=== PATIENT | male | born 1950 | race Hispanic/Latino ===

== ENCOUNTER 2017-04-10 12:37 | Outpatient (CLI) | payer MEDICARE ==
--- NOTE | 2017-04-10 14:48 | XRay Report ---
CHEST WITH BILATERAL RIB DETAIL FOUR VIEWS: 04/10/17 12:37:00 CLINICAL: Bilateral rib pain. FINDINGS: Several bilateral rib fractures are identified. A nondisplaced acute/subacute fracture deformity of the left sixth rib and a displaced acute/subacute fracture of the left posterior 10th rib. Healed fracture deformities of the left second and fifth anterior ribs. A nondisplaced acute/subacute fracture of the right lateral seventh rib and displaced acute/subacute fractures of right posterior 10th, 11th and 12th ribs.The lungs are normally expanded and clear. No pneumothorax. Normal heart and pulmonary vasculature. Degenerative changes in the spine. Normal soft tissues. IMPRESSION: Bilateral acute/subacute displaced and nondisplaced rib fractures and at least two healed chronic left rib fractures. No pneumothorax.
== END 2017-04-10 12:38 | disposition home or self-care (01) ==
LOC: SPVIMAG 12:37
DX: S22.43XD Multiple fractures of ribs, bilateral, subsequent encounter for fracture with routine healing (principal); M47.894 Other spondylosis, thoracic region; X58.XXXD Exposure to other specified factors, subsequent encounter
CPT/HCPCS: 71111

== ENCOUNTER 2018-02-01 03:53 | Inpatient (IN) | payer MEDICARE ==
[2018-02-01] MEDS ORDERED: LEVAQUIN PO ONE (04:11)
[2018-02-01] MEDS ORDERED: SOLU-Medrol IV ONE (04:11)
[2018-02-01] MEDS ORDERED: PROVENTIL IH ONE (04:11)
[2018-02-01] MEDS ORDERED: MAGNESIUM SULFATE 2GM/50ML 2 GM/50 ML BAG IV ONE (04:11)
[2018-02-01] MEDS ORDERED: ATROVENT IH ONE (04:11)
--- NOTE | 2018-02-01 04:11 | Emergency Department Report ---
ED Shortness of Breath HPI - General Chief Complaint: Dyspnea/Respdistress Stated Complaint: DIFFICULTY IN BREATHING Time Seen by Provider: 02/01/18 04:10 Source: patient, EMS Mode of arrival: Stretcher Limitations: No Limitations - History of Present Illness MD Complaint: shortness of breath -: Sudden Severity: severe Pain Scale: 8 Quality: dull Consistency: constant Improves With: oxygen Worsens With: nothing Known History Of: COPD Associated Symptoms: cough Treatments Prior to Arrival: none - Related Data Home Oxygen Therapy: No Home Medications Medication Instructions Recorded Confirmed Last Taken Aspirin [Aspirin BABY CHEW TAB] 81 mg PO QDAY 12/22/12 12/27/17 12/27/17 10:00 81 metFORMIN [Glucophage] 500 mg PO BID 12/25/16 12/27/17 12/26/17 08:00 Ca/D3/Mag/Zinc/Enmanuel/Vaibhav/Mgbor 1 each PO 12/26/17 12/26/17 08:00 [Caltrate 600-D3-Min Chew Tab] Carbidopa/Levodopa 25-100 [Sinemet 1 PO QID 12/26/17 12/26/17 08:00 25/100] Previous Rx's Medication Instructions Recorded Last Taken Type ALBUTEROL NEB's [Proventil 0.083% 2.5 mg IH TIDRT PRN #120 nebu 12/28/17 Unknown Rx NEBS] Fluticasone/Vilanterol [Breo 1 each IH BID #1 aer.pow.ba 12/28/17 Unknown Rx Ellipta 100-25 Mcg INH] Lisinopril [Zestril TAB] 20 mg PO QDAY #30 tablet 12/28/17 Unknown Rx Prednisone [predniSONE 10 mg 10 mg PO .TAPER #1 tab.ds.pk 12/28/17 Unknown Rx (6-Day Pack, 21 Tabs)] Allergies Allergy/AdvReac Type Severity Reaction Status Date / Time No Known Allergies Allergy Verified 09/11/13 07:53 ED Review of Systems ROS: Stated complaint: DIFFICULTY IN BREATHING Other details as noted in HPI Comment: All other systems reviewed and negative Constitutional: denies: chills, fever Eyes: denies: eye pain, eye discharge, vision change ENT: denies: ear pain, throat pain Respiratory: cough, orthopnea, shortness of breath. denies: wheezing Cardiovascular: denies: chest pain, palpitations Endocrine: no symptoms reported Gastrointestinal: denies: abdominal pain, nausea, diarrhea Genitourinary: denies: urgency, dysuria Musculoskeletal: denies: back pain, joint swelling, arthralgia Skin: denies: rash, lesions Neurological: denies: headache, weakness, paresthesias Psychiatric: denies: anxiety, depression Hematological/Lymphatic: denies: easy bleeding, easy bruising ED Past Medical Hx - Past Medical History Previous Medical History?: Yes Hx Hypertension: Yes Hx CVA: Yes (2016) Hx Congestive Heart Failure: No Hx Diabetes: Yes Hx Pulmonary Embolism: Yes (December 2012. On Coumadin) Hx Asthma: No Hx COPD: No Hx HIV: No Additional medical history: History of syncope, Parkinson's - Surgical History Past Surgical History?: No - Social History Smoking Status: Never Smoker Substance Use Type: None - Medications Home Medications: Home Medications Medication Instructions Recorded Confirmed Last Taken Type Aspirin [Aspirin BABY CHEW TAB] 81 mg PO QDAY 12/22/12 12/27/17 12/27/17 10:00 History 81 metFORMIN [Glucophage] 500 mg PO BID 12/25/16 12/27/17 12/26/17 08:00 History Ca/D3/Mag/Zinc/Enmanuel/Vaibhav/Mgbor 1 each PO 12/26/17 12/26/17 08:00 History [Caltrate 600-D3-Min Chew Tab] Carbidopa/Levodopa 25-100 [Sinemet 1 PO QID 12/26/17 12/26/17 08:00 History 25/100] ALBUTEROL NEB's [Proventil 0.083% 2.5 mg IH TIDRT PRN #120 nebu 12/28/17 Unknown Rx NEBS] Fluticasone/Vilanterol [Breo 1 each IH BID #1 aer.pow.ba 12/28/17 Unknown Rx Ellipta 100-25 Mcg INH] Lisinopril [Zestril TAB] 20 mg PO QDAY #30 tablet 12/28/17 Unknown Rx Prednisone [predniSONE 10 mg 10 mg PO .TAPER #1 tab.ds.pk 12/28/17 Unknown Rx (6-Day Pack, 21 Tabs)] ED Physical Exam - General Limitations: No Limitations General appearance: alert, in no apparent distress - Head Head exam: Present: atraumatic, normocephalic - Eye Eye exam: Present: normal appearance - ENT ENT exam: Present: mucous membranes moist - Neck Neck exam: Present: normal inspection - Respiratory Respiratory exam: Present: respiratory distress, wheezes, rhonchi - Cardiovascular Cardiovascular Exam: Present: regular rate, normal rhythm. Absent: systolic murmur, diastolic murmur, rubs, gallop - GI/Abdominal GI/Abdominal exam: Present: soft, normal bowel sounds. Absent: tenderness - Rectal Rectal exam: Present: deferred - Extremities Exam Extremities exam: Present: normal inspection - Back Exam Back exam: Present: normal inspection - Neurological Exam Neurological exam: Present: alert, oriented X3 - Psychiatric Psychiatric exam: Present: normal affect, normal mood - Skin Skin exam: Present: warm, dry, intact, normal color. Absent: rash ED Course Vital Signs 02/01/18 02/01/18 04:04 04:18 Temperature 98.0 F Pulse Rate 121 H 116 H Respiratory 19 24 Rate Blood Pressure 170/90 O2 Sat by Pulse 90 98 Oximetry - Consultations Consultation #1: 02/01/18 06:08 Dr Lawson to admit. ED Medical Decision Making - Lab Data Result diagrams: 02/01/18 04:33 02/01/18 04:33 Lab Results 02/01/18 02/01/18 02/01/18 Range/Units 04:20 04:33 04:33 WBC 9.8 (4.5-11.0) K/mm3 RBC 5.06 H (3.65-5.03) M/mm3 Hgb 14.9 (11.8-15.2) gm/dl Hct 44.4 (35.5-45.6) % MCV 88 (84-94) fl MCH 29 (28-32) pg MCHC 34 (32-34) % RDW 15.0 (13.2-15.2) % Plt Count 291 (140-440) K/mm3 Lymph % (Auto) 13.1 L (13.4-35.0) % Armstrong % (Auto) 5.1 (0.0-7.3) % Eos % (Auto) 3.3 (0.0-4.3) % Baso % (Auto) 0.8 (0.0-1.8) % Lymph # 1.3 (1.2-5.4) K/mm3 Armstrong # 0.5 (0.0-0.8) K/mm3 Eos # 0.3 (0.0-0.4) K/mm3 Baso # 0.1 (0.0-0.1) K/mm3 Seg Neutrophils % 77.7 H (40.0-70.0) % Seg Neutrophils # 7.6 (1.8-7.7) K/mm3 PT 12.6 (12.2-14.9) Sec. INR 0.90 (0.87-1.13) APTT 24.1 L (24.2-36.6) Sec. POC ABG pH 7.401 (7.35-7.45) POC ABG pCO2 37.1 (35-45) POC ABG pO2 175 H (80-105) POC ABG HCO3 23.1 POC ABG Total CO2 24 POC ABG O2 Sat 100 POC ABG Base Excess -2 FiO2 2 % Sodium (137-145) mmol/L Potassium (3.6-5.0) mmol/L Chloride (98-107) mmol/L Carbon Dioxide (22-30) mmol/L Anion Gap mmol/L BUN (9-20) mg/dL Creatinine (0.8-1.5) mg/dL Estimated GFR ml/min BUN/Creatinine Ratio % Glucose (75-100) mg/dL Calcium (8.4-10.2) mg/dL Magnesium (1.7-2.3) mg/dL Total Bilirubin (0.1-1.2) mg/dL AST (5-40) units/L ALT (7-56) units/L Alkaline Phosphatase (35-129) units/L Total Creatine Kinase (55-170) units/L CK-MB (CK-2) (0.0-4.0) ng/mL CK-MB (CK-2) Rel Index (0-4) Troponin T (0.00-0.029) ng/mL NT-Pro-B Natriuret Pep (0-900) pg/mL Total Protein (6.3-8.2) g/dL Albumin (3.9-5) g/dL Albumin/Globulin Ratio % Triglycerides (2-149) mg/dL Cholesterol (50-199) mg/dL LDL Cholesterol Direct (50-130) mg/dL HDL Cholesterol (40-59) mg/dL Cholesterol/HDL Ratio % 02/01/18 02/01/18 Range/Units 04:33 04:33 WBC (4.5-11.0) K/mm3 RBC (3.65-5.03) M/mm3 Hgb (11.8-15.2) gm/dl Hct (35.5-45.6) % MCV (84-94) fl MCH (28-32) pg MCHC (32-34) % RDW (13.2-15.2) % Plt Count (140-440) K/mm3 Lymph % (Auto) (13.4-35.0) % Armstrong % (Auto) (0.0-7.3) % Eos % (Auto) (0.0-4.3) % Baso % (Auto) (0.0-1.8) % Lymph # (1.2-5.4) K/mm3 Armstrong # (0.0-0.8) K/mm3 Eos # (0.0-0.4) K/mm3 Baso # (0.0-0.1) K/mm3 Seg Neutrophils % (40.0-70.0) % Seg Neutrophils # (1.8-7.7) K/mm3 PT (12.2-14.9) Sec. INR (0.87-1.13) APTT (24.2-36.6) Sec. POC ABG pH (7.35-7.45) POC ABG pCO2 (35-45) POC ABG pO2 (80-105) POC ABG HCO3 POC ABG Total CO2 POC ABG O2 Sat POC ABG Base Excess FiO2 % Sodium 140 (137-145) mmol/L Potassium 3.6 (3.6-5.0) mmol/L Chloride 101.2 (98-107) mmol/L Carbon Dioxide 23 (22-30) mmol/L Anion Gap 19 mmol/L BUN 9 (9-20) mg/dL Creatinine 0.7 L (0.8-1.5) mg/dL Estimated GFR > 60 ml/min BUN/Creatinine Ratio 13 % Glucose 235 H (75-100) mg/dL Calcium 9.0 (8.4-10.2) mg/dL Magnesium 1.50 L (1.7-2.3) mg/dL Total Bilirubin 0.30 (0.1-1.2) mg/dL AST 20 (5-40) units/L ALT 15 (7-56) units/L Alkaline Phosphatase 108 (35-129) units/L Total Creatine Kinase 142 (55-170) units/L CK-MB (CK-2) 5.0 H (0.0-4.0) ng/mL CK-MB (CK-2) Rel Index 3.5 (0-4) Troponin T 0.058 H (0.00-0.029) ng/mL NT-Pro-B Natriuret Pep 99.12 (0-900) pg/mL Total Protein 6.4 (6.3-8.2) g/dL Albumin 3.8 L (3.9-5) g/dL Albumin/Globulin Ratio 1.5 % Triglycerides 128 (2-149) mg/dL Cholesterol 215 H (50-199) mg/dL LDL Cholesterol Direct 153 H (50-130) mg/dL HDL Cholesterol 59 (40-59) mg/dL Cholesterol/HDL Ratio 3.64 % - EKG Data -: EKG Interpreted by Ca EKG shows normal: sinus rhythm Rate: tachycardia (121) - EKG Data When compared to previous EKG there are: previous EKG unavailable Interpretation: nonspecific ST-T wave lupe 02/01/18 04:19 No STEMI. - Radiology Data Radiology results: report reviewed, image reviewed - Medical Decision Making COPD Exacerbation. Critical Care Time: Yes Critical care time in (mins) excluding proc time.: 47 Critical care attestation.: If time is entered above; I have spent that time in minutes in the direct care of this critically ill patient, excluding procedure time. ED Disposition Clinical Impression: SOB (shortness of breath), COPD exacerbation, Elevated troponin I level Disposition: OP ADMIT IP TO THIS HOSP Is pt being admited?: Yes Does the pt Need Aspirin: Yes Condition: Stable Instructions: Chronic Obstructive Pulmonary Disease (ED) Time of Disposition: 06:11
[2018-02-01 04:58] LABS: Basophils # (Auto) 0.1 K/mm3 (0.0-0.1); Basophils % (Auto) 0.8 % (0.0-1.8); Eosinophils # (Auto) 0.3 K/mm3 (0.0-0.4); Eosinophils % (Auto) 3.3 % (0.0-4.3); Hematocrit 44.4 % (35.5-45.6); Hemoglobin 14.9 gm/dl (11.8-15.2); Lymphocytes # (Auto) 1.3 K/mm3 (1.2-5.4); Lymphocytes % (Auto) 13.1 % (13.4-35.0); Mean Corpuscular HGB Conc 34 % (32-34); Mean Corpuscular Hemoglobin 29 pg (28-32); Mean Corpuscular Volume 88 fl (84-94); Monocytes # (Auto) 0.5 K/mm3 (0.0-0.8); Monocytes % (Auto) 5.1 % (0.0-7.3); Platelet Count 291 K/mm3 (140-440); Red Blood Count 5.06 M/mm3 (3.65-5.03)
--- NOTE | 2018-02-01 05:28 | XRay Report ---
FINAL REPORT EXAM: XR CHEST 1V AP HISTORY: NOEMY difficulty breathing TECHNIQUE: AP portable view(s) of the chest obtained. PRIORS: 12/26/[address] FINDINGS: No mediastinal shift. Cardiac silhouette is not enlarged. No pneumothorax, effusion, or focal pulmona ry opacity identified. No acute skeletal findings. Multiple old right rib fracture deformities. IMPRESSION: No acute pulmonary finding identified.
[2018-02-01 05:29] LABS: Chol/HDL Ratio 3.64 %; INR 0.9 (0.87-1.13); Partial Thromboplastin Time 24.1 Sec. (24.2-36.6)
[2018-02-01 05:42] LABS: Alanine Aminotransferase 15 units/L (7-56); Albumin 3.8 g/dL (3.9-5); BUN/Creatinine Ratio 13; Blood Urea Nitrogen 9 mg/dL (9-20); Hemolysis Index 10
[2018-02-01] MEDS ORDERED: ASPIRIN PO ONE (06:11)
[2018-02-01] MEDS ORDERED: SODIUM CHLORIDE FLUSH SYRINGE 10 ML IV PRN (07:44)
[2018-02-01] MEDS ORDERED: ZOFRAN IV PRN (07:44)
[2018-02-01] MEDS ORDERED: DILAUDID IV PRN (07:44)
[2018-02-01] MEDS ORDERED: MOTRIN PO PRN (07:44)
[2018-02-01] MEDS ORDERED: TYLENOL PO PRN (07:44)
[2018-02-01] MEDS: DUONEB *Not for PRN Use IH SCH ×3 (08:04→20:48)
[2018-02-01] MEDS: SODIUM CHLORIDE FLUSH SYRINGE 10 ML IV SCH ×2 (09:40→22:24)
[2018-02-01] MEDS ORDERED: LEVAQUIN 750MG/150ML 750 MG/150 ML BAG IV ONE (09:46)
[2018-02-01] MEDS ORDERED: SOLU-Medrol ONE (09:47)
[2018-02-01] MEDS: LEVAQUIN 750MG/150ML 750 MG/150 ML BAG IV SCH (09:54)
[2018-02-01] MEDS: SOLU-Medrol IV SCH ×3 (09:54→22:23)
--- NOTE | 2018-02-01 12:43 | History and Physical Report ---
History of Present Illness Date of examination: 02/01/18 Date of admission: 02/01/18 07:44 Chief complaint: SOB History of present illness: Patient is 67 yo man with a history of type 2 DM, Parkinson's Disorder with recurrent falling, syncope, hypertension, CVA and prior PE who presents to [facility] ED with acute onset of . Patient went to use the restroom and fell without LOC or head trauma. Then, he developed sob without aggravating or relieving factors. Patient is a poor historian. On Venturi mask with labored breathing. Past Medical History: diabetes, hypertension, stroke Past Surgical History: No surgical history Social history: full code. denies: smoking, alcohol abuse, prescription drug abuse, IV drug use Family history: no significant family history ROS: Constitutional: denies: fever ENT: denies: throat or neck pain Respiratory: +: cough, shortness of breath Cardiovascular: denies: chest pain Endocrine: denies unexplained weight loss or gain Gastrointestinal: denies: abdominal pain, nausea Genitourinary: denies: dysuria Rectal: denies no incontinence, no bleeding, no itching, no discharge Musculoskeletal: denies swelling, myaglia, muscle weakness Skin: denies: rash Neurological: denies: headache Hematological/Lymphatic: denies: easy bleeding or easy bruising Allergic/Immunologic: no urticaria, no allergic rhinitis, no anaphylaxis Psych: denies sadness or hopelessness, SI/HI Medications and Allergies Allergies Allergy/AdvReac Type Severity Reaction Status Date / Time No Known Allergies Allergy Verified 09/11/13 07:53 Home Medications Medication Instructions Recorded Confirmed Last Taken Type Ca/D3/Mag Ox/Zinc/Outside Installation Machinist/Vaibhav/Bor 1 each PO QDAY 02/01/18 02/01/18 Unknown History [Calcium [id number] Chw Tb] Carbidopa/Levodopa 25-100 [Sinemet] 1 each PO TID 02/01/18 02/01/18 Unknown History Fluticasone/Vilanterol [Breo 1 each IH QDAY 02/01/18 02/01/18 Unknown History Ellipta 100-25 Mcg INH] Lisinopril [Zestril] 20 mg PO QDAY 02/01/18 02/01/18 Unknown History Olmesartan (Nf) [Benicar (Nf)] 20 mg PO QDAY 02/01/18 02/01/18 Unknown History Pantoprazole [Protonix] 40 mg PO QDAY 02/01/18 02/01/18 Unknown History Ropinirole HCl 0.5 mg PO TID 02/01/18 02/01/18 Unknown History metFORMIN [Glucophage] 500 mg PO BID 02/01/18 02/01/18 Unknown History Active Meds: Active Medications Acetaminophen (Tylenol) 650 mg PO Q4H PRN PRN Reason: Pain MILD(1-3)/Fever >100.5/SARMIENTO Albuterol/Ipratropium (Duoneb *Not For Prn Use*) 1 ampul IH QIDRT [facility] Last Admin: 02/01/18 12:06 Dose: 1 ampul Documented by: Hydromorphone HCl (Dilaudid) 0.5 mg IV Q3H PRN PRN Reason: Pain , Severe (7-10) Levofloxacin/Dextrose (Levaquin 750mg/150ml) 750 mg in 150 mls @ 100 mls/hr IV Q24HR [facility]; Protocol Last Admin: 02/01/18 09:54 Dose: 100 mls/hr Documented by: Ibuprofen (Motrin) 600 mg PO Q6H PRN PRN Reason: Pain, Mild (1-3) Methylprednisolone Sodium Succinate (Solu-Medrol) 80 mg IV Q8HR [facility] Last Admin: 02/01/18 09:54 Dose: 80 mg Documented by: Ondansetron HCl (Zofran) 4 mg IV Q8H PRN PRN Reason: Nausea And Vomiting Sodium Chloride (Sodium Chloride Flush Syringe 10 Ml) 10 ml IV BID [facility] Last Admin: 02/01/18 09:40 Dose: 10 ml Documented by: Sodium Chloride (Sodium Chloride Flush Syringe 10 Ml) 10 ml IV PRN PRN PRN Reason: LINE FLUSH Exam - Physical Exam Narrative exam: Gen: WDWN, NAD, Awake, Alert, Orientated x 3 HEENT: NCAT, EOMI, PERRL, OP Clear Neck: supple, no adenopathy, no thyromegaly, no JVD CVS/Heart: Regular tachycardia, normal S1S2, pulses present bilaterally Chest/Lungs: wheezing, Symmetrical chest expansion, good air entry bilaterally GI/Abdomen: soft, NTND, good bowel sounds, no guarding or rebound /Bladder: no suprapubic tenderness, no CVA or paraspinal tenderness Extermity/Skin: no c/c/e, no obvious rash MSK: FROM x 4 Neuro: CN 2-12 grossly intact, no new focal deficits, tremors and unsteady gait Psych: calm - Constitutional Vitals: Temp Pulse Resp BP Pulse Ox 98.0 F 106 H 26 H 156/84 98 02/01/18 04:04 02/01/18 12:08 02/01/18 12:08 02/01/18 08:53 02/01/18 08:53 Results - Labs CBC & Chem 7: 02/01/18 04:33 02/01/18 04:33 Labs: Abnormal lab results 02/01/18 02/01/18 02/01/18 Range/Units 04:20 04:33 04:33 RBC 5.06 H (3.65-5.03) M/mm3 Lymph % (Auto) 13.1 L (13.4-35.0) % Seg Neutrophils % 77.7 H (40.0-70.0) % APTT 24.1 L (24.2-36.6) Sec. POC ABG pO2 175 H (80-105) Creatinine (0.8-1.5) mg/dL Glucose (75-100) mg/dL Hemoglobin A1c (4-6) % Magnesium (1.7-2.3) mg/dL CK-MB (CK-2) (0.0-4.0) ng/mL Troponin T (0.00-0.029) ng/mL Albumin (3.9-5) g/dL Cholesterol (50-199) mg/dL LDL Cholesterol Direct (50-130) mg/dL 02/01/18 02/01/18 02/01/18 Range/Units 04:33 04:33 04:33 RBC (3.65-5.03) M/mm3 Lymph % (Auto) (13.4-35.0) % Seg Neutrophils % (40.0-70.0) % APTT (24.2-36.6) Sec. POC ABG pO2 (80-105) Creatinine 0.7 L (0.8-1.5) mg/dL Glucose 235 H (75-100) mg/dL Hemoglobin A1c 7.8 H (4-6) % Magnesium 1.50 L (1.7-2.3) mg/dL CK-MB (CK-2) 5.0 H (0.0-4.0) ng/mL Troponin T 0.058 H (0.00-0.029) ng/mL Albumin 3.8 L (3.9-5) g/dL Cholesterol 215 H (50-199) mg/dL LDL Cholesterol Direct 153 H (50-130) mg/dL Assessment and Plan Patient is 67 yo man with a history of type 2 DM, Parkinson's Disorder with recu rrent falling, syncope, hypertension, CVA and prior PE who presents to [facility] ED with acute onset of . Patient went to use the restroom and fell without LOC or head trauma. Then, he developed sob without aggravating or relieving factors. Patient is a poor historian. 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
[2018-02-01] MEDS ORDERED: LOVENOX SUB-Q SCH (22:00)
[2018-02-01 22:17] LABS: Bilirubin,Urine NEG (Negative); Blood,Urine NEG (Negative); Color,Urine Yellow (Yellow); Protein,Urine <15 mg/dL mg/dL (Negative); RBC,Urine < 1.0 /HPF (0.0-6.0); Urobilinogen,Urine < 2.0 mg/dL (<2.0)
[2018-02-02] MEDS: SOLU-Medrol IV SCH ×3 (06:15→21:38)
[2018-02-02 07:00] LABS: Hematocrit 45.3 % (35.5-45.6); Hemoglobin 14.9 gm/dl (11.8-15.2); Mean Corpuscular HGB Conc 33 % (32-34); Mean Corpuscular Hemoglobin 29 pg (28-32); Mean Corpuscular Volume 88 fl (84-94); Platelet Count 362 K/mm3 (140-440); Red Blood Count 5.15 M/mm3 (3.65-5.03); Red Cell Distribution Width 15.8 % (13.2-15.2)
[2018-02-02 07:25] LABS: BUN/Creatinine Ratio 18; Blood Urea Nitrogen 14 mg/dL (9-20); Calcium 9.3 mg/dL (8.4-10.2); Hemolysis Index 9
[2018-02-02] MEDS: DUONEB *Not for PRN Use IH SCH ×2 (08:47→21:08)
[2018-02-02] MEDS: LEVAQUIN 750MG/150ML 750 MG/150 ML BAG IV SCH (11:31)
[2018-02-02] MEDS: PROTONIX PO SCH (11:31)
[2018-02-02] MEDS: SODIUM CHLORIDE FLUSH SYRINGE 10 ML IV SCH ×2 (14:31→21:39)
--- NOTE | 2018-02-02 15:17 | Progress Note ---
Assessment and Plan Assessment and plan: Patient is 67 yo man with a history of type 2 DM, Parkinson's Disorder with recurrent falling, syncope, hypertension, CVA and prior PE who presents to [facility] ED with acute onset of . Patient went to use the restroom and fell without LOC or head trauma. Then, he developed sob without aggravating or relieving factors. Patient is a poor historian. * pCXR reported no acute pulmonary findings elevated troponin, denies CP; repeat trop, ekg, cardiology consult, start full dose lovenox, echo, -We'll obtain CT angiogram of his chest given history of PE in the past -Recurrent falls due to PD: consult PT, fall precaution, CT head official report still pending -Acute hypoxic respiratory failure suspected due to copd exacerbation: treat with O2, steroids and nebulizers -SIRS with organ dysfunction: No evidence of infection, chest x-ray and UA are negative Hypertensive urgency; optimize meds -DM type 2: a1c 7.8, cont ssi -H/o PE, not on Coumadin: 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 -H/o Parkinson: Continue his home meds -DVT prophylaxis: Chemical History Interval history: Review of systems Constitutional: No fevers, no malaise, no joint pains CVS: No chest pain, no orthopnea, no dyspnea on exertion, no pedal edema GI: No abdominal pain, no diarrhea, no vomiting, no constipation Respiratory: Complaining of shortness of breath and coughing Hospitalist Physical - Physical exam Narrative exam: General.: Appears well, no distress, nontoxic HEENT: Moist mucous membranes, extraocular muscles intact, no lymphadenopathy Neck: supple Cardiac: S1-S2 heard Lungs: clear to auscultation bilaterally Abdomen: soft , nontender, nondistended, bowel sounds positive Extremities: no edema clubbing or cyanosis Skin: no rash or lesions Neurologic: no gross focal deficits Psych: Calm and cooperative, cognitive deficits consistent with dementia - Constitutional Vitals: Temp Pulse Resp BP Pulse Ox 98.2 F 103 H 18 137/77 92 02/02/18 12:31 02/02/18 12:31 02/02/18 12:31 02/02/18 12:31 02/02/18 12:31 Results - Labs CBC & Chem 7: 02/02/18 05:16 02/02/18 05:16 Labs: Laboratory Last Values WBC 9.9 K/mm3 (4.5-11.0) 02/02/18 05:16 RBC 5.15 M/mm3 (3.65-5.03) H 02/02/18 05:16 Hgb 14.9 gm/dl (11.8-15.2) 02/02/18 05:16 Hct 45.3 % (35.5-45.6) 02/02/18 05:16 MCV 88 fl (84-94) 02/02/18 05:16 MCH 29 pg (28-32) 02/02/18 05:16 MCHC 33 % (32-34) 02/02/18 05:16 RDW 15.8 % (13.2-15.2) H 02/02/18 05:16 Plt Count 362 K/mm3 (140-440) 02/02/18 05:16 Lymph % (Auto) 13.1 % (13.4-35.0) L 02/01/18 04:33 Early % (Auto) 5.1 % (0.0-7.3) 02/01/18 04:33 Eos % (Auto) 3.3 % (0.0-4.3) 02/01/18 04:33 Baso % (Auto) 0.8 % (0.0-1.8) 02/01/18 04:33 Lymph # 1.3 K/mm3 (1.2-5.4) 02/01/18 04:33 Early # 0.5 K/mm3 (0.0-0.8) 02/01/18 04:33 Eos # 0.3 K/mm3 (0.0-0.4) 02/01/18 04:33 Baso # 0.1 K/mm3 (0.0-0.1) 02/01/18 04:33 Seg Neutrophils % 77.7 % (40.0-70.0) H 02/01/18 04:33 Seg Neutrophils # 7.6 K/mm3 (1.8-7.7) 02/01/18 04:33 PT 12.6 Sec. (12.2-14.9) 02/01/18 04:33 INR 0.90 (0.87-1.13) 02/01/18 04:33 APTT 24.1 Sec. (24.2-36.6) L 02/01/18 04:33 POC ABG pH 7.401 (7.35-7.45) 02/01/18 04:20 POC ABG pCO2 37.1 (35-45) 02/01/18 04:20 POC ABG pO2 175 (80-105) H 02/01/18 04:20 POC ABG HCO3 23.1 02/01/18 04:20 POC ABG Total CO2 24 02/01/18 04:20 POC ABG O2 Sat 100 02/01/18 04:20 POC ABG Base Excess -2 02/01/18 04:20 FiO2 2 % 02/01/18 04:20 Sodium 141 mmol/L (137-145) 02/02/18 05:16 Potassium 3.9 mmol/L (3.6-5.0) 02/02/18 05:16 Chloride 102.8 mmol/L (98-107) 02/02/18 05:16 Carbon Dioxide 21 mmol/L (22-30) L 02/02/18 05:16 Anion Gap 21 mmol/L 02/02/18 05:16 BUN 14 mg/dL (9-20) 02/02/18 05:16 Creatinine 0.8 mg/dL (0.8-1.5) 02/02/18 05:16 Estimated GFR > 60 ml/min 02/02/18 05:16 BUN/Creatinine Ratio 18 % 02/02/18 05:16 Glucose 213 mg/dL (75-100) H 02/02/18 05:16 Hemoglobin A1c 7.8 % (4-6) H 02/01/18 04:33 Calcium 9.3 mg/dL (8.4-10.2) 02/02/18 05:16 Magnesium 1.50 mg/dL (1.7-2.3) L 02/01/18 04:33 Total Bilirubin 0.30 mg/dL (0.1-1.2) 02/01/18 04:33 AST 20 units/L (5-40) 02/01/18 04:33 ALT 15 units/L (7-56) 02/01/18 04:33 Alkaline Phosphatase 108 units/L (35-129) 02/01/18 04:33 Total Creatine Kinase 142 units/L (55-170) 02/01/18 04:33 CK-MB (CK-2) 5.0 ng/mL (0.0-4.0) H 02/01/18 04:33 CK-MB (CK-2) Rel Index 3.5 (0-4) 02/01/18 04:33 Troponin T 0.105 ng/mL (0.00-0.029) H* D 02/02/18 00:32 NT-Pro-B Natriuret Pep 99.12 pg/mL (0-900) 02/01/18 04:33 Total Protein 6.4 g/dL (6.3-8.2) 02/01/18 04:33 Albumin 3.8 g/dL (3.9-5) L 02/01/18 04:33 Albumin/Globulin Ratio 1.5 % 02/01/18 04:33 Triglycerides 128 mg/dL (2-149) 02/01/18 04:33 Cholesterol 215 mg/dL (50-199) H 02/01/18 04:33 LDL Cholesterol Direct 153 mg/dL (50-130) H 02/01/18 04:33 HDL Cholesterol 59 mg/dL (40-59) 02/01/18 04:33 Cholesterol/HDL Ratio 3.64 % 02/01/18 04:33 Urine Color Yellow (Yellow) 02/01/18 21:55 Urine Turbidity Clear (Clear) 02/01/18 21:55 Urine pH 5.0 (5.0-7.0) 02/01/18 21:55 Ur Specific [place] 1.022 (1.003-1.030) 02/01/18 21:55 Urine Protein <15 mg/dl mg/dL (Negative) 02/01/18 21:55 Urine Glucose (UA) >=500 mg/dL (Negative) 02/01/18 21:55 Urine Ketones Tr mg/dL (Negative) 02/01/18 21:55 Urine Blood Neg (Negative) 02/01/18 21:55 Urine Nitrite Neg (Negative) 02/01/18 21:55 Urine Bilirubin Neg (Negative) 02/01/18 21:55 Urine Urobilinogen < 2.0 mg/dL (<2.0) 02/01/18 21:55 Ur Leukocyte Esterase Neg (Negative) 12/28/18 21:55 Urine WBC (Auto) 1.0 /HPF (0.0-6.0) 02/01/18 21:55 Urine RBC (Auto) < 1.0 /HPF (0.0-6.0) 02/01/18 21:55 U Epithel Cells (Auto) < 1.0 /HPF (0-13.0) 02/01/18 21:55
[2018-02-02] MEDS: LOVENOX SUB-Q SCH ×2 (17:39→21:39)
[2018-02-02] MEDS ORDERED: LOVENOX SUB-Q SCH (22:00)
[2018-02-02] MEDS: GLUCOPHAGE PO SCH (23:53)
[2018-02-03] MEDS: SOLU-Medrol IV SCH ×3 (06:14→22:08)
[2018-02-03] MEDS: DUONEB *Not for PRN Use IH SCH ×2 (07:09→21:06)
[2018-02-03] MEDS: BROVANA NEBU IH SCH ×2 (07:09→21:06)
[2018-02-03] MEDS: PULMICORT IH SCH ×2 (07:09→21:06)
[2018-02-03] MEDS: NORCO 5/325 PO PRN ×2 (08:30→15:05)
[2018-02-03] MEDS: CALTRATE PLUS PO SCH (09:29)
[2018-02-03] MEDS: GLUCOPHAGE PO SCH ×2 (09:29→17:50)
[2018-02-03] MEDS: ZESTRIL PO SCH (09:34)
[2018-02-03] MEDS: LOVENOX SUB-Q SCH ×2 (09:35→22:08)
[2018-02-03] MEDS: HALFPRIN EC PO SCH (09:35)
[2018-02-03] MEDS: COZAAR PO SCH (09:35)
[2018-02-03] MEDS: SINEMET PO SCH ×3 (09:35→20:31)
[2018-02-03] MEDS: REQUIP PO SCH ×3 (09:36→20:31)
[2018-02-03] MEDS: LEVAQUIN 750MG/150ML 750 MG/150 ML BAG IV SCH (09:36)
[2018-02-03] MEDS: PROTONIX PO SCH ×2 (09:36→09:37)
[2018-02-03] MEDS: SODIUM CHLORIDE FLUSH SYRINGE 10 ML IV SCH ×2 (09:38→22:09)
[2018-02-03] MEDS ORDERED: NON-FORMULARY (Fluticasone/Vilanterol [Breo Ellipta 100-25 Mcg Inh] 1 EACH) IH SCH (10:00)
--- NOTE | 2018-02-03 12:48 | Progress Note ---
Assessment and Plan Assessment and plan: Patient is 67 yo man with a history of type 2 DM, Parkinson's Disorder with recurrent falling, syncope, hypertension, CVA and prior PE who [facility] with acute onset of . Patient went to use the restroom and fell without LOC or head trauma. Then, he developed sob without aggravating or relieving factors. Patient is a poor historian. * pCXR reported no acute pulmonary findings elevated troponin, denies CP; repeat trop, ekg, cardiology consult, start full dose lovenox, echo, -We'll obtain CT angiogram of his chest given history of PE in the past -Recurrent falls due to PD: consult PT, fall precaution, CT head official report still pending -Acute hypoxic respiratory failure suspected due to copd exacerbation: treat with O2, steroids and nebulizers, obtain PFT, pulm consult -SIRS with organ dysfunction: No evidence of infection, chest x-ray and UA are negative Hypertensive urgency; optimize meds -DM type 2: a1c 7.8, cont ssi -H/o PE, not on Coumadin: he was not a candidate for retirement anticoagulation/coumadin due to falling -H/o Parkinson: Continue his home meds -DVT prophylaxis: Chemical History Interval history: Review of systems Constitutional: No fevers, no malaise, no joint pains CVS: No chest pain, no orthopnea, no dyspnea on exertion, no pedal edema GI: No abdominal pain, no diarrhea, no vomiting, no constipation Respiratory: Complaining of shortness of breath and coughing Hospitalist Physical - Physical exam Narrative exam: General.: Appears well, no distress, nontoxic HEENT: Moist mucous membranes, extraocular muscles intact, no lymphadenopathy Neck: supple Cardiac: S1-S2 heard Lungs: clear to auscultation bilaterally Abdomen: soft , nontender, nondistended, bowel sounds positive Extremities: no edema clubbing or cyanosis Skin: no rash or lesions Neurologic: no gross focal deficits Psych: Calm and cooperative, cognitive deficits consistent with dementia - Constitutional Vitals: Temp Pulse Resp BP Pulse Ox 97.6 F 97 H 20 124/70 93 02/03/18 11:41 02/03/18 11:42 02/03/18 11:42 02/03/18 11:42 02/03/18 11:42 Results - Labs CBC & Chem 7: 02/02/18 05:16 12/29/18 05:16 Labs: Laboratory Last Values WBC 9.9 K/mm3 (4.5-11.0) 02/02/18 05:16 RBC 5.15 M/mm3 (3.65-5.03) H 02/02/18 05:16 Hgb 14.9 gm/dl (11.8-15.2) 02/02/18 05:16 Hct 45.3 % (35.5-45.6) 02/02/18 05:16 MCV 88 fl (84-94) 02/02/18 05:16 MCH 29 pg (28-32) 02/02/18 05:16 MCHC 33 % (32-34) 02/02/18 05:16 RDW 15.8 % (13.2-15.2) H 02/02/18 05:16 Plt Count 362 K/mm3 (140-440) 02/02/18 05:16 Lymph % (Auto) 13.1 % (13.4-35.0) L 02/01/18 04:33 [place] % (Auto) 5.1 % (0.0-7.3) 02/01/18 04:33 Eos % (Auto) 3.3 % (0.0-4.3) 02/01/18 04:33 Baso % (Auto) 0.8 % (0.0-1.8) 02/01/18 04:33 Lymph # 1.3 K/mm3 (1.2-5.4) 02/01/18 04:33 [place] # 0.5 K/mm3 (0.0-0.8) 02/01/18 04:33 Eos # 0.3 K/mm3 (0.0-0.4) 02/01/18 04:33 Baso # 0.1 K/mm3 (0.0-0.1) 02/01/18 04:33 Seg Neutrophils % 77.7 % (40.0-70.0) H 02/01/18 04:33 Seg Neutrophils # 7.6 K/mm3 (1.8-7.7) 02/01/18 04:33 PT 12.6 Sec. (12.2-14.9) 02/01/18 04:33 INR 0.90 (0.87-1.13) 02/01/18 04:33 APTT 24.1 Sec. (24.2-36.6) L 02/01/18 04:33 POC ABG pH 7.401 (7.35-7.45) 02/01/18 04:20 POC ABG pCO2 37.1 (35-45) 02/01/18 04:20 POC ABG pO2 175 (80-105) H 02/01/18 04:20 POC ABG HCO3 23.1 02/01/18 04:20 POC ABG Total CO2 24 02/01/18 04:20 POC ABG O2 Sat 100 02/01/18 04:20 POC ABG Base Excess -2 02/01/18 04:20 FiO2 2 % 02/01/18 04:20 Sodium 141 mmol/L (137-145) 02/02/18 05:16 Potassium 3.9 mmol/L (3.6-5.0) 02/02/18 05:16 Chloride 102.8 mmol/L (98-107) 02/02/18 05:16 Carbon Dioxide 21 mmol/L (22-30) L 02/02/18 05:16 Anion Gap 21 mmol/L 02/02/18 05:16 BUN 14 mg/dL (9-20) 02/02/18 05:16 Creatinine 0.8 mg/dL (0.8-1.5) 02/02/18 05:16 Estimated GFR > 60 ml/min 02/02/18 05:16 BUN/Creatinine Ratio 18 % 02/02/18 05:16 Glucose 213 mg/dL (75-100) H 02/02/18 05:16 POC Glucose 260 (70-105) H 02/03/18 11:42 Hemoglobin A1c 7.8 % (4-6) H 02/01/18 04:33 Calcium 9.3 mg/dL (8.4-10.2) 02/02/18 05:16 Magnesium 1.50 mg/dL (1.7-2.3) L 02/01/18 04:33 Total Bilirubin 0.30 mg/dL (0.1-1.2) 02/01/18 04:33 AST 20 units/L (5-40) 02/01/18 04:33 ALT 15 units/L (7-56) 02/01/18 04:33 Alkaline Phosphatase 108 units/L (35-129) 02/01/18 04:33 Total Creatine Kinase 142 units/L (55-170) 02/01/18 04:33 CK-MB (CK-2) 5.0 ng/mL (0.0-4.0) H 02/01/18 04:33 CK-MB (CK-2) Rel Index 3.5 (0-4) 02/01/18 04:33 Troponin T 0.085 ng/mL (0.00-0.029) H 02/02/18 16:11 NT-Pro-B Natriuret Pep 99.12 pg/mL (0-900) 02/01/18 04:33 Total Protein 6.4 g/dL (6.3-8.2) 02/01/18 04:33 Albumin 3.8 g/dL (3.9-5) L 02/01/18 04:33 Albumin/Globulin Ratio 1.5 % 02/01/18 04:33 Triglycerides 128 mg/dL (2-149) 02/01/18 04:33 Cholesterol 215 mg/dL (50-199) H 02/01/18 04:33 LDL Cholesterol Direct 153 mg/dL (50-130) H 02/01/18 04:33 HDL Cholesterol 59 mg/dL (40-59) 02/01/18 04:33 Cholesterol/HDL Ratio 3.64 % 02/01/18 04:33 Urine Color Yellow (Yellow) 02/01/18 21:55 Urine Turbidity Clear (Clear) 02/01/18 21:55 Urine pH 5.0 (5.0-7.0) 02/01/18 21:55 Ur Specific [place] 1.022 (1.003-1.030) 02/01/18 21:55 Urine Protein <15 mg/dl mg/dL (Negative) 02/01/18 21:55 Urine Glucose (UA) >=500 mg/dL (Negative) 02/01/18 21:55 Urine Ketones Tr mg/dL (Negative) 02/01/18 21:55 Urine Blood Neg (Negative) 02/01/18 21:55 Urine Nitrite Neg (Negative) 02/01/18 21:55 Urine Bilirubin Neg (Negative) 02/01/18 21:55 Urine Urobilinogen < 2.0 mg/dL (<2.0) 02/01/18 21:55 Ur Leukocyte Esterase Neg (Negative) 02/01/18 21:55 Urine WBC (Auto) 1.0 /HPF (0.0-6.0) 02/01/18 21:55 Urine RBC (Auto) < 1.0 /HPF (0.0-6.0) 02/01/18 21:55 U Epithel Cells (Auto) < 1.0 /HPF (0-13.0) 02/01/18 21:55
--- NOTE | 2018-02-03 12:51 | Consultation ---
History of Present Illness Consult date: 02/03/18 Consult reason: shortness of breath History of present illness: The patient's this 67-year-old man with Parkinson's disease. He was brought to the emergency room today, with complaints of transient shortness of breath, and following that he went into his bathroom where he was said to have sustained a fall. He is somewhat of a prior historian, it appears that there was no report of loss of consciousness or syncope, is that he may have lost his balance due to ambulation difficulty associated with his Parkinson's. There was no chest pain, no palpitations and no lower extremity edema. Patient denies any significant prior cardiac history. Four years ago, an echocardiogram at this hospital reported left ventricular ejection fraction 45-50%. ECG is normal sinus rhythm, normal ECG. Chest x-ray reveals no infiltrates, no edema and no evidence of heart failure. The troponin levels were somewhat nonspecific, with serial levels unchanged at 0.08 to 0.1. Past History Past Medical History: diabetes, hypertension (Parkinson's), other (Parkinson's) Medications and Allergies Allergies Allergy/AdvReac Type Severity Reaction Status Date / Time No Known Allergies Allergy Verified 09/11/13 07:53 Home Medications Medication Instructions Recorded Confirmed Last Taken Type Ca/D3/Mag Ox/Zinc/Forging Press Setter Up/Vaibhav/Bor 1 each PO QDAY 02/01/18 02/01/18 Unknown History [Calcium [id number]-[id number] Chw Tb] Carbidopa/Levodopa 25-100 [Sinemet] 1 each PO TID 02/01/18 02/01/18 Unknown History Fluticasone/Vilanterol [Breo 1 each IH QDAY 02/01/18 02/01/18 Unknown History Ellipta 100-25 Mcg INH] Lisinopril [Zestril] 20 mg PO QDAY 02/01/18 02/01/18 Unknown History Olmesartan (Nf) [Benicar (Nf)] 20 mg PO QDAY 02/01/18 02/01/18 Unknown History Pantoprazole [Protonix] 40 mg PO QDAY 02/01/18 02/01/18 Unknown History Ropinirole HCl 0.5 mg PO TID 02/01/18 02/01/18 Unknown History metFORMIN [Glucophage] 500 mg PO BID 02/01/18 02/01/18 Unknown History Aspirin [Adult Aspirin] 81 mg PO QDAY 02/02/18 02/02/18 Unknown History Active Meds: Active Medications Acetaminophen (Tylenol) 650 mg PO Q4H PRN PRN Reason: Pain MILD(1-3)/Fever >100.5/SARMIENTO Acetaminophen/Hydrocodone Bitart ([place] 5/325) 1 each PO Q4H PRN PRN Reason: Pain, Moderate (4-6) Last Admin: 02/03/18 08:30 Dose: 1 each Documented by: Albuterol/Ipratropium (Duoneb *Not For Prn Use*) 1 ampul IH BIDRT [facility] Last Admin: 02/03/18 07:09 Dose: 1 ampul Documented by: Arformoterol Tartrate (Brovana Nebu) 15 mcg IH Q12HRT [facility] Last Admin: 02/03/18 07:09 Dose: 15 mcg Documented by: Aspirin (Halfprin Ec) 81 mg PO QDAY [facility] Last Admin: 02/03/18 09:35 Dose: 81 mg Documented by: Budesonide (Pulmicort) 0.5 mg IH Q12HRT [facility] Last Admin: 02/03/18 07:09 Dose: 0.5 mg Documented by: Carbidopa/Levodopa (Sinemet) 1 each PO TID [facility] Last Admin: 02/03/18 09:35 Dose: 1 each Documented by: Enoxaparin Sodium (Lovenox) 80 mg SUB-Q BID [facility] Last Admin: 02/03/18 09:35 Dose: 80 mg Documented by: Guaifenesin (Guaifenesin Dm Syrup) 20 ml PO Q4H PRN PRN Reason: Cough Last Admin: 02/03/18 09:50 Dose: 20 ml Documented by: Levofloxacin/Dextrose (Levaquin 750mg/150ml) 750 mg in 150 mls @ 100 mls/hr IV Q24HR [facility]; Protocol Last Admin: 02/03/18 09:36 Dose: 100 mls/hr Documented by: Lisinopril (Zestril) 20 mg PO QDAY [facility] Last Admin: 02/03/18 09:34 Dose: 20 mg Documented by: Losartan Potassium (Cozaar) 50 mg PO QDAY [facility] Last Admin: 02/03/18 09:35 Dose: 50 mg Documented by: Metformin HCl (Glucophage) 500 mg PO BIDDIAB [facility] Last Admin: 02/03/18 09:29 Dose: 500 mg Documented by: Methylprednisolone Sodium Succinate (Solu-Medrol) 80 mg IV Q8HR [facility] Last Admin: 02/03/18 06:14 Dose: 80 mg Documented by: Multivitamins/Minerals (Caltrate Plus) 1 each PO QAM [facility] Last Admin: 02/03/18 09:29 Dose: 1 each Documented by: Ondansetron HCl (Zofran) 4 mg IV Q8H PRN PRN Reason: Nausea And Vomiting Pantoprazole Sodium (Protonix) 40 mg PO QDAY [facility] Last Admin: 02/03/18 09:36 Dose: 40 mg Documented by: Pantoprazole Sodium (Protonix) 40 mg PO QDAY [facility] Last Admin: 02/03/18 09:37 Dose: 40 mg Documented by: Ropinirole HCl (Requip) 0.5 mg PO TID [facility] Last Admin: 02/03/18 09:36 Dose: 0.5 mg Documented by: Sodium Chloride (Sodium Chloride Flush Syringe 10 Ml) 10 ml IV BID [facility] Last Admin: 02/03/18 09:38 Dose: 10 ml Documented by: Sodium Chloride (Sodium Chloride Flush Syringe 10 Ml) 10 ml IV PRN PRN PRN Reason: LINE FLUSH Review of Systems Cardiovascular: shortness of breath, no chest pain, no orthopnea, no palpitations, no rapid/irregular heart beat, no edema, no syncope, no lightheadedness Physical Examination Vital Signs Pulse Resp 119 H 23 02/01/18 04:00 02/01/18 04:00 General appearance: no acute distress HEENT: Positive: PERRL Neck: Positive: neck supple Cardiac: Positive: Reg Rate and Rhythm Lungs: Positive: Decreased Breath Sounds Neuro: Positive: Grossly Intact Abdomen: Positive: Soft Male genitourinary: Positive: deferred Skin: Positive: Clear Extremities: Absent: edema Results 02/02/18 05:16 02/02/18 05:16 EKG interpretations - Telemetry EKG Rhythm: Sinus Rhythm Assessment and Plan 67-year-old man with a history of Parkinson's, hypertension and diabetes, presents with shortness of breath. ECG and chest x-ray findings are benign. Recommend echocardiography and a Persantine thallium stress test for further cardiac assessment.
--- NOTE | 2018-02-03 14:34 | Cat Scan Report ---
FINAL REPORT EXAM: CT HEAD/BRAIN WO CON HISTORY: fall, syncope TECHNIQUE: CT of the head was performed without intravenous contrast. PRIORS: 12/22/2016. FINDINGS: The ventricles are normal in shape and position. Unchanged prominent lateral ventricles likely relate d to diffuse cerebral volume loss. Unchanged old left basal ganglia lacunar infarct. Unchanged mild f indings of chronic microvascular ischemic disease. No intracranial hemorrhage, mass, mass effect, mid line shift or evidence of acute ischemic infarct. The basilar cisterns are patent. Mucosal thickening of the paranasal sinuses is likely congestive or inflammatory. Old right nasal bon e fracture is seen. The extracranial soft tissues demonstrate no abnormality. The calvarium is intact . The orbits are intact. The mastoid air cells are clear. IMPRESSION: 1. No acute intracranial abnormality. 2. Unchanged old left basal ganglia lacunar infarct. 3. Unchanged diffuse cerebral volume loss and findings of chronic microvascular ischemic disease.
--- NOTE | 2018-02-03 14:56 | Consultation ---
History of Present Illness Consult date: 02/03/18 Requesting physician: AMANDEEP KIMBLE Reason for consult: hypoxemia, other (AE-COPD) History of present illness: The patient's this 67-year-old man with Parkinson's disease. He was brought to the emergency room, with complaints of transient shortness of breath, and following that he went into his bathroom where he was said to have sustained a fall. He is somewhat of a prior historian, it appears that there was no report of loss of consciousness or syncope, is that he may have lost his balance due to ambulation difficulty associated with his Parkinson's. There was no chest pain, no palpitations and no lower extremity edema. Past Medical History: diabetes, hypertension, stroke Past Surgical History: No surgical history Social history: full code. denies: smoking, alcohol abuse, prescription drug abuse, IV drug use Family history: no significant family history ROS: Constitutional: denies: fever ENT: denies: throat or neck pain Respiratory: +: cough, shortness of breath Cardiovascular: denies: chest pain Endocrine: denies unexplained weight loss or gain Gastrointestinal: denies: abdominal pain, nausea Genitourinary: denies: dysuria Rectal: denies no incontinence, no bleeding, no itching, no discharge Musculoskeletal: denies swelling, myaglia, muscle weakness Skin: denies: rash Neurological: denies: headache Hematological/Lymphatic: denies: easy bleeding or easy bruising Allergic/Immunologic: no urticaria, no allergic rhinitis, no anaphylaxis Psych: denies sadness or hopelessness, SI/HI Past History Past Medical History: diabetes, hypertension (Parkinson's), other (Parkinson's) Medications and Allergies Allergies Allergy/AdvReac Type Severity Reaction Status Date / Time No Known Allergies Allergy Verified 09/11/13 07:53 Home Medications Medication Instructions Recorded Confirmed Last Taken Type Ca/D3/Mag Ox/Zinc/Healthcare Sales Representative/Vaibhav/Bor 1 each PO QDAY 02/01/18 02/01/18 Unknown History [Calcium 018-U3-Mopgtuog Chw Tb] Carbidopa/Levodopa 25-100 [Sinemet] 1 each PO TID 02/01/18 02/01/18 Unknown History Fluticasone/Vilanterol [Breo 1 each IH QDAY 02/01/18 02/01/18 Unknown History Ellipta 100-25 Mcg INH] Lisinopril [Zestril] 20 mg PO QDAY 02/01/18 02/01/18 Unknown History Olmesartan (Nf) [Benicar (Nf)] 20 mg PO QDAY 02/01/18 02/01/18 Unknown History Pantoprazole [Protonix] 40 mg PO QDAY 02/01/18 02/01/18 Unknown History Ropinirole HCl 0.5 mg PO TID 02/01/18 02/01/18 Unknown History metFORMIN [Glucophage] 500 mg PO BID 02/01/18 02/01/18 Unknown History Aspirin [Adult Aspirin] 81 mg PO QDAY 02/02/18 02/02/18 Unknown History Active Meds: Active Medications Acetaminophen (Tylenol) 650 mg PO Q4H PRN PRN Reason: Pain MILD(1-3)/Fever >100.5/[place] Acetaminophen/Hydrocodone Bitart ([place] 5/325) 1 each PO Q4H PRN PRN Reason: Pain, Moderate (4-6) Last Admin: 02/03/18 08:30 Dose: 1 each Documented by: Albuterol/Ipratropium (Duoneb *Not For Prn Use*) 1 ampul IH BIDRT [facility] Last Admin: 02/03/18 07:09 Dose: 1 ampul Documented by: Arformoterol Tartrate (Brovana Nebu) 15 mcg IH Q12HRT [facility] Last Admin: 02/03/18 07:09 Dose: 15 mcg Documented by: Aspirin (Halfprin Ec) 81 mg PO QDAY [facility] Last Admin: 02/03/18 09:35 Dose: 81 mg Documented by: Budesonide (Pulmicort) 0.5 mg IH Q12HRT [facility] Last Admin: 02/03/18 07:09 Dose: 0.5 mg Documented by: Carbidopa/Levodopa (Sinemet) 1 each PO TID [facility] Last Admin: 02/03/18 13:17 Dose: 1 each Documented by: Enoxaparin Sodium (Lovenox) 80 mg SUB-Q BID [facility] Last Admin: 02/03/18 09:35 Dose: 80 mg Documented by: Guaifenesin (Guaifenesin Dm Syrup) 20 ml PO Q4H PRN PRN Reason: Cough Last Admin: 02/03/18 09:50 Dose: 20 ml Documented by: Levofloxacin/Dextrose (Levaquin 750mg/150ml) 750 mg in 150 mls @ 100 mls/hr IV Q24HR [facility]; Protocol Last Admin: 02/03/18 09:36 Dose: 100 mls/hr Documented by: Lisinopril (Zestril) 20 mg PO QDAY [facility] Last Admin: 02/03/18 09:34 Dose: 20 mg Documented by: Losartan Potassium (Cozaar) 50 mg PO QDAY [facility] Last Admin: 02/03/18 09:35 Dose: 50 mg Documented by: Metformin HCl (Glucophage) 500 mg PO BIDDIAB [facility] Last Admin: 02/03/18 09:29 Dose: 500 mg Documented by: Methylprednisolone Sodium Succinate (Solu-Medrol) 80 mg IV Q8HR [facility] Last Admin: 02/03/18 13:18 Dose: 80 mg Documented by: Multivitamins/Minerals (Caltrate Plus) 1 each PO QAM [facility] Last Admin: 02/03/18 09:29 Dose: 1 each Documented by: Ondansetron HCl (Zofran) 4 mg IV Q8H PRN PRN Reason: Nausea And Vomiting Pantoprazole Sodium (Protonix) 40 mg PO QDAY [facility] Last Admin: 02/03/18 09:36 Dose: 40 mg Documented by: Pantoprazole Sodium (Protonix) 40 mg PO QDAY [facility] Last Admin: 02/03/18 09:37 Dose: 40 mg Documented by: Ropinirole HCl (Requip) 0.5 mg PO TID [facility] Last Admin: 02/03/18 13:17 Dose: 0.5 mg Documented by: Sodium Chloride (Sodium Chloride Flush Syringe 10 Ml) 10 ml IV BID [facility] Last Admin: 02/03/18 09:38 Dose: 10 ml Documented by: Sodium Chloride (Sodium Chloride Flush Syringe 10 Ml) 10 ml IV PRN PRN PRN Reason: LINE FLUSH Physical Examination Vital signs: Vital Signs Pulse Resp 119 H 23 02/01/18 04:00 02/01/18 04:00 Results - Laboratory Findings CBC and BMP: 02/02/18 05:16 02/02/18 05:16 ABG POC ABG pH 7.401 (7.35-7.45) 02/01/18 04:20 POC ABG pCO2 37.1 (35-45) 02/01/18 04:20 POC ABG pO2 175 (80-105) H 02/01/18 04:20 POC ABG HCO3 23.1 02/01/18 04:20 POC ABG Total CO2 24 02/01/18 04:20 POC ABG O2 Sat 100 02/01/18 04:20 PT/INR, D-dimer PT 12.6 Sec. (12.2-14.9) 02/01/18 04:33 INR 0.90 (0.87-1.13) 02/01/18 04:33 Abnormal lab findings: Abnormal Labs 02/01/18 02/01/18 02/01/18 04:20 04:33 04:33 RBC 5.06 H RDW Lymph % (Auto) 13.1 L Seg Neutrophils % 77.7 H APTT 24.1 L POC ABG pO2 175 H Carbon Dioxide Creatinine Glucose POC Glucose Hemoglobin A1c Magnesium CK-MB (CK-2) Troponin T Albumin Cholesterol LDL Cholesterol Direct 02/01/18 02/01/18 02/01/18 04:33 04:33 04:33 RBC RDW Lymph % (Auto) Seg Neutrophils % APTT POC ABG pO2 Carbon Dioxide Creatinine 0.7 L Glucose 235 H POC Glucose Hemoglobin A1c 7.8 H Magnesium 1.50 L CK-MB (CK-2) 5.0 H Troponin T 0.058 H Albumin 3.8 L Cholesterol 215 H LDL Cholesterol Direct 153 H 02/01/18 02/02/18 02/02/18 18:46 00:32 05:16 RBC 5.15 H RDW 15.8 H Lymph % (Auto) Seg Neutrophils % APTT POC ABG pO2 Carbon Dioxide Creatinine Glucose POC Glucose Hemoglobin A1c Magnesium CK-MB (CK-2) Troponin T 0.084 H D 0.105 H* D Albumin Cholesterol LDL Cholesterol Direct 02/02/18 02/02/18 02/02/18 05:16 16:11 23:03 RBC RDW Lymph % (Auto) Seg Neutrophils % APTT POC ABG pO2 Carbon Dioxide 21 L Creatinine Glucose 213 H POC Glucose 244 H Hemoglobin A1c Magnesium CK-MB (CK-2) Troponin T 0.085 H Albumin Cholesterol LDL Cholesterol Direct 02/03/18 02/03/18 06:27 11:42 RBC RDW Lymph % (Auto) Seg Neutrophils % APTT POC ABG pO2 Carbon Dioxide Creatinine Glucose POC Glucose 175 H 260 H Hemoglobin A1c Magnesium CK-MB (CK-2) Troponin T Albumin Cholesterol LDL Cholesterol Direct Assessment and Plan -Acute hypoxic respiratory failure suspected due to copd exacerbation: -Elevated troponin, -Recurrent falls due to PD -SIRS with organ dysfunction -DM type 2 -H/o PE -H/o Parkinson
--- NOTE | 2018-02-03 15:45 | Cat Scan Report ---
FINAL REPORT PROCEDURE: CT ANGIO CHEST TECHNIQUE: Computerized tomographic angiography of the chest was performed during the IV injection o f iodinated nonionic contrast including image processing. The image data was postprocessed using 2-di mensional multiplanar reformatted (MPR) and 3-dimensional (MIP and/or volume rendered) techniques. HISTORY: sob COMPARISON: No prior studies are available for comparison. FINDINGS: Pulmonary outflow tract, right and left main pulmonary arteries and their proximal branches: Clear, n o filling defects seen to suggest pulmonary embolus. Pericardium: No evidence of pericardial effusion. Thoracic aorta: No evidence of aneurysmal dilatation or dissection. Coronary arteries: Are partially calcified indicating atherosclerotic disease. Mediastinum and hilar regions: Nonspecific subcentimeter lymph nodes are visualized. No pathologicall y enlarged lymph nodes or masses are identified. Lung Enciso: Small amount of dependent atelectasis visualized. No focal dense consolidations or effus ions are identified. No evidence of pneumothorax. Upper abdomen: No acute or focal abnormality is seeen. Other: Multiple old healed rib fractures visualized bilaterally. IA fractures visualized through the posterior aspect of the left 10th rib with incomplete bony union at this time. I suspect this represe nts a healing fracture. IMPRESSION: No evidence of pulmonary embolus. Healing left 10th rib fracture. Multiple old healed rib fractures also visualized. Small amount of dependent atelectasis visualized.
[2018-02-04] MEDS: NORCO 5/325 PO PRN (04:24)
[2018-02-04] MEDS: SOLU-Medrol IV SCH ×2 (05:17→15:44)
[2018-02-04] MEDS: GLUCOPHAGE PO SCH (07:58)
[2018-02-04] MEDS ORDERED: LEXISCAN IV ONE (09:23)
[2018-02-04] MEDS: PULMICORT IH SCH (10:55)
[2018-02-04] MEDS: BROVANA NEBU IH SCH (10:55)
[2018-02-04] MEDS: DUONEB *Not for PRN Use IH SCH (10:55)
[2018-02-04] MEDS: COZAAR PO SCH (10:58)
[2018-02-04] MEDS: LEVAQUIN 750MG/150ML 750 MG/150 ML BAG IV SCH (10:58)
[2018-02-04] MEDS: CALTRATE PLUS PO SCH (10:58)
[2018-02-04 11:03] VITALS: BP 130/69
[2018-02-04] MEDS: PROTONIX PO SCH ×2 (11:03→11:08)
[2018-02-04] MEDS: HALFPRIN EC PO SCH (11:03)
[2018-02-04] MEDS: SINEMET PO SCH ×2 (11:04→15:45)
[2018-02-04] MEDS: REQUIP PO SCH ×2 (11:04→15:45)
[2018-02-04] MEDS: LOVENOX SUB-Q SCH (11:04)
[2018-02-04] MEDS: ZESTRIL PO SCH (11:04)
[2018-02-04] MEDS: SODIUM CHLORIDE FLUSH SYRINGE 10 ML IV SCH (11:05)
--- NOTE | 2018-02-04 12:44 | Discharge Summary ---
Providers - Providers Date of Admission: 02/01/18 07:44 Attending physician: AMANDEEP KIMBLE MD 02/01/18 12:54 Physical Therapy Evaluation and Treat [CONS] Routine Comment: Reason For Exam: gait evaluation/ambulatory dysfunction 02/02/18 15:16 Consult to Physician [CONS] Routine Comment: CONSULT COMPLETED Consulting Provider: ALLISON SOTELO Physician Instructions: Reason For Exam: nstemi 02/03/18 13:03 Consult to Physician [CONS] Routine Comment: Consulting Provider: GAETANO HANCOCK Physician Instructions: Reason For Exam: copd Primary care physician: [employer] Hospitalization Condition: Stable Pertinent studies: pCXR reported no acute pulmonary findings CT angiogram chest shows no pulmonary embolism. There is a healing left 10th rib fracture. Multiple old healed fractures also noted Hospital course: Patient is 67 yo man with a history of type 2 DM, hx of PE, Parkinson's Disorder with recurrent falling, syncope, hypertension, CVA and prior PE who presents to [facility] ED with acute onset of . Patient went to use the restroom and fell without LOC or head trauma. Then, he developed sob without aggravating or relieving factors. Patient is a poor historian. * The patient had an elevated troponin, he denied chest pain, he went on to have CT angiogram of chest which was negative for PE. He was evaluated by cardiology, they went on to have a stress test which was negative, the patient is a poor candidate for any anticoagulation due to multiple recurrent falls * He received physical therapy for recurrent falls. Physical therapy recommended that 24-hour assistance by family members and home PT * The patient did suffer COPD exacerbation, he was medically treated, and he improved * His medications were optimized for his chronic conditions. * Home oxygen was organized for him prior to discharge for acute on chronic respiratory failure Diagnoses elevated troponin -Recurrent falls due to ataxia from Parkinson's disease: -Acute hypoxic respiratory failure suspected due to copd exacerbation: -SIRS with organ dysfunction: Hypertensive urgency; -DM type 2: -Acute on chronic hypoxic respiratory failure Disposition: DC/TX-06 HOME UNDER HOME HL Time spent for discharge: 33 minutes Core Measure Documentation - Palliative Care Palliative Care/ Comfort Measures: Not Applicable - Core Measures Any of the following diagnoses?: none Exam - Physical Exam Narrative exam: General.: Appears well, no distress, nontoxic HEENT: Moist mucous membranes, extraocular muscles intact, no lymphadenopathy Neck: supple Cardiac: S1-S2 heard Lungs: clear to auscultation bilaterally Abdomen: soft , nontender, nondistended, bowel sounds positive Extremities: no edema clubbing or cyanosis Skin: no rash or lesions Neurologic: no gross focal deficits Psych: Calm and cooperative, cognitive deficits consistent with dementia - Constitutional Vitals: Temp Pulse Resp BP Pulse Ox 98.0 F 98 H 30 H 130/69 94 02/04/18 04:14 02/04/18 11:06 02/04/18 11:06 02/04/18 11:04 02/04/18 10:55 Plan Follow up with: PRIMARY CARE, [Primary Care Provider] - 7 Days Prescriptions: ALBUTEROL Inhaler(NF) [VENTOLIN Inhaler(NF)] 1 puff IH Q4H #1 inha Prednisone [predniSONE 10 mg (6-Day Pack, 21 Tabs)] 10 mg PO .TAPER #1 tab.ds.pk Ipratropium/Albuterol Sulfate [DUONEB *Not for PRN Use*] 1 ampul IH BIDRT #120 ampul.neb Other Discharge Orders: Oxygen (Amb) Location: None Selected
--- NOTE | 2018-02-04 14:15 | Event Note ---
Date: 02/04/18 Lexiscan thallium stress test completed, results show normal myocardial perfusion, no ischemic or infarct defects, normal left ventricular systolic function. Patient is stable for cardiac discharge on medical management, follow-up in our office in 5-7 days.
--- NOTE | 2018-02-04 20:54 | Treadmill Report ---
THALLIUM STRESS TEST LEFT VENTRICLE: Left ventricular chamber size is within normal spread. Perfusion study demonstrates homogeneous uptake of the tracer in all segments, no significant perfusion defects identified. Gated analysis demonstrates normal left ventricular systolic function, ejection fraction 58%. CONCLUSION: Normal myocardial perfusion study. JOB# [id number] CA/NTS
== END 2018-02-04 17:59 | disposition home health service (06) | DRG 189 ==
LOC: ED 03:53 → IMCU 07:44 → 4A 02-02 00:53
PROVIDERS: ADMIT Internal Medicine; ATTEND Internal Medicine
PROC: 4A033R1 Measurement of Arterial Saturation, Peripheral, Percutaneous Approach (ICD-10-PCS; principal; 2018-02-01)
PROC: 5A09357 Assistance with Respiratory Ventilation, Less than 24 Consecutive Hours, Continuous Positive Airway Pressure (ICD-10-PCS; 2018-02-01)
DX: J96.21 Acute and chronic respiratory failure with hypoxia (principal); R65.11 Systemic inflammatory response syndrome (SIRS) of non-infectious origin with acute organ dysfunction; J44.1 Chronic obstructive pulmonary disease with (acute) exacerbation; G20 Parkinson's disease; I16.0 Hypertensive urgency; E11.9 Type 2 diabetes mellitus without complications; R79.89 Other specified abnormal findings of blood chemistry; J98.01 Acute bronchospasm; I10 Essential (primary) hypertension; R27.0 Ataxia, unspecified; Z86.73 Personal history of transient ischemic attack (TIA), and cerebral infarction without residual deficits; Z86.711 Personal history of pulmonary embolism; Z79.82 Long term (current) use of aspirin; Z79.899 Other long term (current) drug therapy
CPT/HCPCS: 36415; 70450; 71045; 71275; 78452; 80048; 80053; 80061; 81001; 82550; 82553; 82803; 82962; 83036; 83735; 83880; 84484; 85025; 85027; 85610; 85730; 93005; 93010; 93017; 93306; 94640; 94760; G0378; A9502; G8978-GP; G8979-GP; J1650; J1956; J2785; J2920; J2930; J3475; Q9967

== ENCOUNTER 2018-03-28 23:19 | Inpatient (IN) | payer MEDICARE ==
[2018-03-28] MEDS ORDERED: ATROVENT IH ONE (23:42)
[2018-03-28] MEDS ORDERED: PROVENTIL IH ONE (23:42)
[2018-03-28] MEDS ORDERED: MAGNESIUM SULFATE 2GM/50ML 2 GM/50 ML BAG IV ONE (23:42)
--- NOTE | 2018-03-28 23:48 | Emergency Department Report ---
HPI - General Chief Complaint: Dyspnea/Respdistress Time Seen by Provider: 03/28/18 23:36 - HPI HPI: Room 4 The patient is a 68-year-old male presenting with chief complaint of shortness of breath. Patient has had shortness breath past 2-3 days worsening this evening. Patient has a history of COPD and is on 2 L nasal cannula at home. Patient's spouse states she turned his oxygen up to 3 as he felt as though he was not getting enough air. He has had a cough for several weeks that is nonproductive. Family is uncertain the patient has had a fever at home. Patient denies any forms of pain. Patient was brought in by EMS and was administered Solu-Medrol 125 mg IV and albuterol 5 mg Location: Lungs Duration: [See above] Quality: Shortness of breath Severity: Moderate Modifying factors: [see above] Context: [see above] Mode of transportation: [not driving] ED Past Medical Hx - Past Medical History Hx Hypertension: Yes Hx CVA: Yes (2016) Hx Diabetes: Yes Hx Pulmonary Embolism: Yes Hx COPD: Yes (2 L home O2) Additional medical history: History of syncope, Parkinson's - Surgical History Past Surgical History?: No - Family History Family history: no significant - Social History Smoking Status: Former Smoker (none since 2002) Substance Use Type: None - Medications Home Medications: Home Medications Medication Instructions Recorded Confirmed Last Taken Type Ca/D3/Mag Ox/Zinc/Horseradish Maker/Vaibhav/Bor 1 each PO QDAY 02/01/18 02/01/18 Unknown History [Calcium 299-O7-Oowoewhd Chw Tb] Carbidopa/Levodopa 25-100 [Sinemet 1 each PO TID 02/01/18 02/01/18 Unknown History 25/100] Fluticasone/Vilanterol [Breo 1 each IH QDAY 02/01/18 02/01/18 Unknown History Ellipta 100-25 Mcg INH] Lisinopril [Zestril TAB] 20 mg PO QDAY 02/01/18 02/01/18 Unknown History Olmesartan (Nf) [Benicar] 20 mg PO QDAY 02/01/18 02/01/18 Unknown History Pantoprazole [Protonix TAB] 40 mg PO QDAY 02/01/18 02/01/18 Unknown History Ropinirole HCl 0.5 mg PO TID 02/01/18 02/01/18 Unknown History metFORMIN [Glucophage] 500 mg PO BID 02/01/18 02/01/18 Unknown History Aspirin [Adult Aspirin] 81 mg PO QDAY 02/02/18 02/02/18 Unknown History ALBUTEROL Inhaler(NF) [VENTOLIN 1 puff IH Q4H #1 inha 02/04/18 Unknown Rx Inhaler(NF)] Ipratropium/Albuterol Sulfate 1 ampul IH BIDRT #120 ampul.neb 02/04/18 Unknown Rx [DUONEB *Not for PRN Use*] Prednisone [predniSONE 10 mg 10 mg PO .TAPER #1 tab.ds.pk 02/04/18 Unknown Rx (6-Day Pack, 21 Tabs)] ED Review of Systems ROS: Stated complaint: NOEMY Other details as noted in HPI Constitutional: denies: fever Eyes: denies: eye pain ENT: denies: throat pain Respiratory: cough, shortness of breath, other (congestion) Cardiovascular: denies: chest pain Endocrine: no symptoms reported Gastrointestinal: denies: abdominal pain Genitourinary: denies: dysuria Musculoskeletal: denies: back pain Neurological: denies: headache Physical Exam - Physical Exam Physical Exam: GENERAL: The patient is well-developed well-nourished male lying on stretcher not appearing to be in acute distress. [] HEENT: Normocephalic. Atraumatic. Extraocular motions are intact. Patient has moist mucous membranes. NECK: Supple. Trachea midline CHEST/LUNGS: Diffuse wheezing. There is no respiratory distress noted. HEART/CARDIOVASCULAR: Regular. There is no tachycardia. There is no gallop rub or murmur. ABDOMEN: Abdomen is soft, nontender. Patient has normal bowel sounds. There is no abdominal distention. SKIN: There is no rash. There is no edema. There is no diaphoresis. NEURO: The patient is awake, alert, and oriented. The patient is cooperative. The patient has normal speech MUSCULOSKELETAL: There is no evidence of acute injury. ED Course - Reevaluation(s) Reevaluation #1: 03/29/18 01:48 Patient continues to have audible wheezing. Will admit to the hospital ED Medical Decision Making - Lab Data Result diagrams: 03/28/18 23:50 03/28/18 23:50 - Radiology Data Radiology results: report reviewed (chest x-ray), image reviewed (chest x-ray) interpreted by me: Chest x-ray-no focal infiltrate, no pneumothorax [facility] [address] [place] [address] XRay Report Signed Patient: MARLENI ALVAREZ MR#: [id number] : 1950 Acct:[id number] Age/Sex: 68 / M ADM Date: 03/28/18 Loc: ED Attending Dr: Ordering Physician: JOANN ESPINOZA MD Date of Service: 03/28/18 Procedure(s): XR chest 1V ap Accession Number(s): [id number] cc: JOANN ESPINOZA MD Fluoro Time In Minutes: FINAL REPORT EXAM: XR CHEST 1V AP HISTORY: short of breath TECHNIQUE: AP portable view of the chest. PRIORS: 02/01/2018 FINDINGS: The cardiomediastinal silhouette appears normal. The lungs are clear. The bones and soft tissues are unremarkable. IMPRESSION: No evidence of acute cardiopulmonary disease. Transcribed By: MLG Dictated By: TED COOL MD Electronically Authenticated By: TED COOL MD Signed Date/Time: 03/29/1835 DD/ TD/TT: 03/29/1833 - Differential Diagnosis COPD exacerbation, pneumonia, acute bronchitis, pneumothorax Critical care attestation.: If time is entered above; I have spent that time in minutes in the direct care of this critically ill patient, excluding procedure time. ED Disposition Clinical Impression: COPD exacerbation, SOB (shortness of breath) Disposition: OP ADMIT IP TO THIS HOSP Is pt being admited?: Yes Does the pt Need Aspirin: Yes Condition: Fair Instructions: Chronic Obstructive Pulmonary Disease (ED) Time of Disposition: 01:49 (hospitalist notified (Dr. Meg Elkins))
[2018-03-29 00:03] LABS: Basophils # (Auto) 0.1 K/mm3 (0.0-0.1); Basophils % (Auto) 1.3 % (0.0-1.8); Eosinophils # (Auto) 1.5 K/mm3 (0.0-0.4); Eosinophils % (Auto) 13.3 % (0.0-4.3); Hematocrit 45.4 % (35.5-45.6); Lymphocytes # (Auto) 2.8 K/mm3 (1.2-5.4); Lymphocytes % (Auto) 25.4 % (13.4-35.0); Mean Corpuscular HGB Conc 33 % (32-34); Mean Corpuscular Volume 89 fl (84-94); Monocytes # (Auto) 0.9 K/mm3 (0.0-0.8); Monocytes % (Auto) 7.7 % (0.0-7.3); Platelet Count 286 K/mm3 (140-440); Red Blood Count 5.13 M/mm3 (3.65-5.03); Red Cell Distribution Width 15.9 % (13.2-15.2)
[2018-03-29 00:22] LABS: BUN/Creatinine Ratio 18; Blood Urea Nitrogen 11 mg/dL (9-20); Calcium 9.1 mg/dL (8.4-10.2); Hemolysis Index 9
--- NOTE | 2018-03-29 00:36 | XRay Report ---
FINAL REPORT EXAM: XR CHEST 1V AP HISTORY: short of breath TECHNIQUE: AP portable view of the chest. PRIORS: 02/01/2018 FINDINGS: The cardiomediastinal silhouette appears normal. The lungs are clear. The bones and soft tissues are unremarkable. IMPRESSION: No evidence of acute cardiopulmonary disease.
[2018-03-29] MEDS ORDERED: ASPIRIN PO ONE (01:49)
--- NOTE | 2018-03-29 02:25 | History and Physical Report ---
History of Present Illness Date of examination: 03/29/18 History of present illness: 68-year-old man with a history of hypertension, COPD on 2 L oxygen, diabetes, CVA, Parkinson's comes emergency room with complaints of shortness of breath 3 days, wheezing, cough productive of thick white phlegm, no fever or chills. W bowen at bedside state that she increase his oxygen to 3 L to help with her shortness of breath. Patient was given steroids nebulizer treatment, he still using accessory muscles with audible wheezing Review of systems Constitutional: no weight loss, chills, fever Ears, eyes, nose, mouth and throat: no nasal congestion, no nasal discharge, no sinus pressure, no vision change, no red eye. Neck: No neck pain or rigidity. Cardiovascular: no palpitations, chest pain Respiratory: + cough, shortness of breath Gastrointestinal: no hematochezia, abdominal pain Genitourinary : no frequency , no hematuria Musculoskeletal: no joint swelling or muscle ache Integumentary: no rash, no pruritis Neurological: no parathesias, no focal weakness Endocrine: no cold or heat intolerance, no polyuria or polydipsia Hematologic/Lymphatic: no easy bruising, no easy bleeding, no gland swelling Allergic/Immunologic: no urticaria, no angioedema. PAST MEDICAL HISTORY: hypertension, COPD on 2 L oxygen, diabetes, CVA, Parkinson's PAST SURGICAL HISTORY: None SOCIAL HISTORY: Denies alcohol, drugs, tobacco FAMILY HISTORY: Hypertension Medications and Allergies Allergies Allergy/AdvReac Type Severity Reaction Status Date / Time No Known Allergies Allergy Verified 09/11/13 07:53 Home Medications Medication Instructions Recorded Confirmed Last Taken Type Ca/D3/Mag Ox/Zinc/Blaster Helper/Vaibhav/Bor 1 each PO QDAY 02/01/18 02/01/18 Unknown History [Calcium 052-Q1-Mywyckcn Chw Tb] Carbidopa/Levodopa 25-100 [Sinemet 1 each PO TID 02/01/18 02/01/18 Unknown History 25/100] Fluticasone/Vilanterol [Breo 1 each IH QDAY 02/01/18 02/01/18 Unknown History Ellipta 100-25 Mcg INH] Lisinopril [Zestril TAB] 20 mg PO QDAY 02/01/18 02/01/18 Unknown History Olmesartan (Nf) [Benicar] 20 mg PO QDAY 02/01/18 02/01/18 Unknown History Pantoprazole [Protonix TAB] 40 mg PO QDAY 02/01/18 02/01/18 Unknown History Ropinirole HCl 0.5 mg PO TID 02/01/18 02/01/18 Unknown History metFORMIN [Glucophage] 500 mg PO BID 02/01/18 02/01/18 Unknown History Aspirin [Adult Aspirin] 81 mg PO QDAY 02/02/18 02/02/18 Unknown History ALBUTEROL Inhaler(NF) [VENTOLIN 1 puff IH Q4H #1 inha 02/04/18 Unknown Rx Inhaler(NF)] Ipratropium/Albuterol Sulfate 1 ampul IH BIDRT #120 ampul.neb 02/04/18 Unknown Rx [DUONEB *Not for PRN Use*] Prednisone [predniSONE 10 mg 10 mg PO .TAPER #1 tab.ds.pk 02/04/18 Unknown Rx (6-Day Pack, 21 Tabs)] Exam - Physical Exam Narrative exam: General Apperance: The patient lying in bed, breathing comfortable , using accessory muscles HEENT: Normocephalic, atraumatic. Pupils equally round and reactive to light, EOMI, no sclericterus or JVD or thyromegaly or nodule. , no carotid bruit, mucous membranes moist, no exudate or erythema Heart: S1-S2, regular is rhythm Lungs: Wheezing bilaterally, breathing comfortable Abdomen: Positive bowel sounds, soft, nontender, nondistended, no organomegaly Extremities: No edema cyanosis clubbing Skin: no rash, nodule, warm and dry Neuro: cranial nerves 2-12 intact, speech is fluent, motor/sensory intact - Constitutional Vitals: Temp Pulse Resp BP Pulse Ox 89 16 03/29/18 00:18 03/29/18 00:18 Results - Labs CBC & Chem 7: 03/28/18 23:50 03/28/18 23:50 Labs: Abnormal lab results 03/28/18 03/28/18 Range/Units 23:50 23:50 WBC 11.1 H (4.5-11.0) K/mm3 RBC 5.13 H (3.65-5.03) M/mm3 RDW 15.9 H (13.2-15.2) % [place] % (Auto) 7.7 H (0.0-7.3) % Eos % (Auto) 13.3 H (0.0-4.3) % [place] # 0.9 H (0.0-0.8) K/mm3 Eos # 1.5 H (0.0-0.4) K/mm3 Creatinine 0.6 L (0.8-1.5) mg/dL Glucose 167 H (75-100) mg/dL - Imaging and Cardiology EKG: image reviewed Chest x-ray: report reviewed Assessment and Plan Assessment Respiratory failure Acute COPD exacerbation hypertension diabetes CVA, Parkinson's Plan Obtain ABG and start BiPAP Start high-dose steroids, Zithromax,breathing treatment, consult pulmonary Check fingersticks and start insulin sliding scale Continue appropriate outpatient medication DVT prophylaxis
[2018-03-29] MEDS ORDERED: SODIUM CHLORIDE FLUSH SYRINGE 10 ML IV PRN (02:37)
[2018-03-29] MEDS ORDERED: D50W (25GM) Syringe IV PRN (02:37)
[2018-03-29] MEDS ORDERED: TYLENOL PO PRN (02:37)
[2018-03-29] MEDS ORDERED: ZOFRAN IV PRN (02:37)
[2018-03-29] MEDS ORDERED: ZITHROMAX 500 MG in NACL 0.9% 250ML 250 ML IV SCH (02:49)
[2018-03-29 04:06] LABS: Hematocrit 43.1 % (35.5-45.6); Hemoglobin 14.5 gm/dl (11.8-15.2); Mean Corpuscular HGB Conc 34 % (32-34); Mean Corpuscular Volume 88 fl (84-94); Platelet Count 243 K/mm3 (140-440); Red Blood Count 4.89 M/mm3 (3.65-5.03); Red Cell Distribution Width 15.9 % (13.2-15.2)
[2018-03-29 04:24] LABS: BUN/Creatinine Ratio 20; Blood Urea Nitrogen 12 mg/dL (9-20); Calcium 8.9 mg/dL (8.4-10.2); Hemolysis Index 9
[2018-03-29] MEDS: HumaLOG SUB-Q SCH ×4 (05:41→23:56)
[2018-03-29] MEDS ORDERED: SOLU-Medrol IV SCH ×2 (06:00→14:00)
[2018-03-29 07:02] LABS: Band Neutrophils # (Manual) 0.1 K/mm3; Basophils % (Manual) 0 % (0.0-1.8); Eosinophils % (Manual) 0 % (0.0-4.3); Total Cells Counted 100
[2018-03-29 07:04] LABS: RBC Morphology Normal
[2018-03-29] MEDS: DUONEB *Not for PRN Use IH SCH ×3 (07:19→19:38)
--- NOTE | 2018-03-29 08:48 | Event Note ---
Date: 03/29/18 Patient was admitted this morning with worsening shortness of breath, Seen and evaluated,medical records reviewed. Assessment : --Respiratory failure --Acute COPD exacerbation --hypertension --diabetes --CVA, Parkinson's Plan Continue oxygen support BiPAP as needed Nebulizers and IV steroids and IV antibiotics Follow-up pulmonary evaluation and recommendations Accu-Chek sliding scale coverage and ADA diet A resume home medications DVT prophylaxis Discharge in 1-2 days if stable Plan of care reviewed with the patient and his nurse
[2018-03-29] MEDS ORDERED: [UNRECOGNIZED DRUG - OTHER] PO SCH (10:00)
[2018-03-29] MEDS: ZESTRIL PO SCH (10:30)
[2018-03-29] MEDS: GLUCOPHAGE PO SCH ×2 (10:45→17:48)
[2018-03-29] MEDS: LOVENOX SUB-Q SCH (10:55)
[2018-03-29] MEDS: HALFPRIN EC PO SCH (10:55)
[2018-03-29] MEDS: SINEMET PO SCH ×4 (10:55→22:28)
[2018-03-29] MEDS: REQUIP PO SCH ×3 (10:55→20:54)
[2018-03-29] MEDS: SODIUM CHLORIDE FLUSH SYRINGE 10 ML IV SCH ×2 (10:56→22:28)
[2018-03-29] MEDS: VITAMIN B-12 PO SCH (10:56)
[2018-03-29 14:20] LABS: Basophils # (Auto) 0.1 K/mm3 (0.0-0.1); Eosinophils % (Auto) 0.3 % (0.0-4.3); Monocytes # (Auto) 0.1 K/mm3 (0.0-0.8)
--- NOTE | 2018-03-29 19:40 | Consultation ---
History of Present Illness Consult date: 03/29/18 Requesting physician: EMILIA WAN Reason for consult: COPD History of present illness: PULMONARY/CCM CONSULT NOTE (Full note dictated) Please see dictated notes for full details Medications and Allergies Allergies Allergy/AdvReac Type Severity Reaction Status Date / Time No Known Allergies Allergy Verified 09/11/13 07:53 Home Medications Medication Instructions Recorded Confirmed Last Taken Type Ca/D3/Mag Ox/Zinc/Biomass Facilitator/Vaibhav/Bor 1 each PO QDAY 02/01/18 03/29/18 Unknown History [Calcium 056-T8-Nakzoeqa Chw Tb] Carbidopa/Levodopa 25-100 [Sinemet 1 each PO QID 02/01/18 03/29/18 Unknown History 25/100] Lisinopril [Zestril TAB] 20 mg PO QDAY 02/01/18 03/29/18 Unknown History Ropinirole HCl 0.5 mg PO TID 02/01/18 03/29/18 Unknown History metFORMIN [Glucophage] 500 mg PO BID 02/01/18 03/29/18 Unknown History Aspirin [Adult Aspirin] 81 mg PO QDAY 02/02/18 03/29/18 Unknown History ALBUTEROL Inhaler(NF) [VENTOLIN 1 puff IH Q4H #1 inha 02/04/18 03/29/18 Unknown Rx Inhaler(NF)] Ipratropium/Albuterol Sulfate 1 ampul IH BIDRT #120 ampul.neb 02/04/18 03/29/18 Unknown Rx [DUONEB *Not for PRN Use*] Cyanocobalamin (Vitamin B-12) 1,000 mcg PO DAILY 03/29/18 03/29/18 Unknown History [Vitamin B-12] Active Meds: Active Medications Acetaminophen (Tylenol) 650 mg PO Q4H PRN PRN Reason: Pain MILD(1-3)/Fever >100.5/SARMIENTO Albuterol/Ipratropium (Duoneb *Not For Prn Use*) 1 ampul IH Q6HRT [facility] Last Admin: 03/29/18 19:38 Dose: 1 ampul Documented by: Aspirin (Halfprin Ec) 81 mg PO QDAY [facility] Last Admin: 03/29/18 10:55 Dose: 81 mg Documented by: Carbidopa/Levodopa (Sinemet) 1 each PO QID [facility] Last Admin: 03/29/18 17:49 Dose: 1 each Documented by: Cyanocobalamin (Vitamin B-12) 1,000 mcg PO DAILY [facility] Last Admin: 03/29/18 10:56 Dose: 1,000 mcg Documented by: Dextrose (D50w (25gm) Syringe) 50 ml IV PRN PRN PRN Reason: Hypoglycemia Enoxaparin Sodium (Lovenox) 40 mg SUB-Q QDAY [facility] Last Admin: 03/29/18 10:55 Dose: 40 mg Documented by: Azithromycin 500 mg/ Sodium (Chloride) 250 mls @ 250 mls/hr IV Q24HR [facility] Insulin Human Lispro (Humalog) 0 unit SUB-Q Q6HR [facility]; Protocol Last Admin: 03/29/18 17:47 Dose: 3 unit Documented by: Lisinopril (Zestril) 20 mg PO QDAY [facility] Last Admin: 03/29/18 10:30 Dose: Not Given Documented by: Metformin HCl (Glucophage) 500 mg PO BIDDIAB [facility] Last Admin: 03/29/18 17:48 Dose: 500 mg Documented by: Methylprednisolone Sodium Succinate (Solu-Medrol) 80 mg IV Q8HR [facility] Last Admin: 03/29/18 14:51 Dose: 80 mg Documented by: Miscellaneous Medication (Ca/D3/Mag Ox/Zinc/Biomass Facilitator/Vaibhav/Bor [Calcium 147-T3-Mcmxyohf Chw Tb]) 1 each PO QDAY [facility] Ondansetron HCl (Zofran) 4 mg IV Q8H PRN PRN Reason: Nausea And Vomiting Ropinirole HCl (Requip) 0.5 mg PO TID [facility] Last Admin: 03/29/18 14:51 Dose: 0.5 mg Documented by: Sodium Chloride (Sodium Chloride Flush Syringe 10 Ml) 10 ml IV BID [facility] Last Admin: 03/29/18 10:56 Dose: 10 ml Documented by: Sodium Chloride (Sodium Chloride Flush Syringe 10 Ml) 10 ml IV PRN PRN PRN Reason: LINE FLUSH Last Admin: 03/29/18 14:52 Dose: 10 ml Documented by: Physical Examination Vital signs: Vital Signs Resp Pulse Ox 29 H 93 03/29/18 00:13 03/29/18 00:13 Results - Laboratory Findings CBC and BMP: 03/29/18 03:40 03/29/18 03:40 ABG POC ABG pH 7.311 (7.35-7.45) L 03/29/18 02:39 POC ABG pCO2 48.1 (35-45) H 03/29/18 02:39 POC ABG pO2 83 (80-105) 03/29/18 02:39 POC ABG HCO3 24.2 03/29/18 02:39 POC ABG Total CO2 26 03/29/18 02:39 POC ABG O2 Sat 95 03/29/18 02:39 Abnormal lab findings: Abnormal Labs 03/28/18 03/28/18 03/29/18 23:50 23:50 02:39 WBC 11.1 H RBC 5.13 H RDW 15.9 H [place] % (Auto) 7.7 H Eos % (Auto) 13.3 H [place] # 0.9 H Eos # 1.5 H Seg Neuts % (Manual) Lymphocytes % (Manual) Lymphocytes # (Manual) POC ABG pH 7.311 L POC ABG pCO2 48.1 H Creatinine 0.6 L Glucose 167 H POC Glucose 03/29/18 03/29/18 03/29/18 03:40 03:40 05:37 WBC RBC RDW 15.9 H [place] % (Auto) Eos % (Auto) [place] # Eos # Seg Neuts % (Manual) 91.0 H Lymphocytes % (Manual) 5.0 L Lymphocytes # (Manual) 0.4 L POC ABG pH POC ABG pCO2 Creatinine 0.6 L Glucose 248 H POC Glucose 228 H
[2018-03-29] MEDS: SOLU-Medrol IV SCH (22:27)
--- NOTE | 2018-03-29 23:57 | Consultation ---
PULMONARY CONSULTATION CONSULTING PHYSICIAN: Meg Elkins MD REASON FOR CONSULTATION: Acute COPD exacerbation. CHIEF COMPLAINT AND HISTORY OF PRESENT ILLNESS: The patient is a 68-year-old male with past medical history according to him significant for a diagnosis of home oxygen dependent COPD, baseline oxygenation 2 liters per minute at home. He was brought into the Emergency Room yesterday by his spouse who stated that he had turned his oxygen up to about 3 liters because he did not feel he was getting enough air. He had a cough that he tells me is nonbloody, but productive of yellowish phlegm. He believes he is producing more phlegm than usual. He denied fevers or chills at home. He was brought into the Emergency Room. In the ER, he was evaluated and admitted with a diagnosis of acute COPD exacerbation. We are asked to assist with management. When I stopped by to see him, he was resting in bed, remained on supplemental oxygen, still with increased work of breathing at rest, but he states he was feeling better. He admits to a 20+ pack year tobacco smoking history, but tells me he has quit smoking almost 10 years ago. He denied any chest pain, pleuritic or otherwise. He denied any sick contacts at home. He states he has been compliant with his medications and did not run out of any. He denies any new onset leg pain or swelling either unilaterally or bilaterally. States he is up to date on his flu and pneumonia vaccination. This really is as much of the history of presentation as I have. PAST MEDICAL HISTORY: History of hypertension, history of cerebrovascular accident, history of diabetes, history of pulmonary embolism, history of Parkinson's disease as well as history of syncope and history of restless leg syndrome. PAST SURGICAL HISTORY: Denies. MEDICATIONS: He was on at the time I stopped by to see him were reviewed. Pertinent medications included the following: Tylenol 650 mg p.o. q. 4 hours p.r.n. mild pain or fevers, albuterol and Atrovent treatments nebulized q. 6 hours, aspirin 81 mg p.o. daily, azithromycin 500 mg IV daily, Sinemet 1 tablet p.o. q.i.d., cyanocobalamin as vitamin B12 1 mg p.o. daily, Lovenox 40 mg subcutaneous daily, insulin via sliding scale, lisinopril 20 mg p.o. daily, metformin 500 mg p.o. b.i.d., Solu-Medrol 80 mg IV q. 8 hours, nonformulary medication 1 tablet daily, Requip 0.5 mg p.o. t.i.d., and Zofran 4 mg IV q. 8 hours p.r.n. nausea and vomiting. ALLERGIES: No known drug allergies. DIET: Well-built gentleman. Denies acute weight loss or gain in the preceding few weeks to months. FAMILY AND SOCIAL HISTORY: Lives in the community. He has a 20+ pack year tobacco smoking history, but it is a remote history, now quit smoking. Denies alcohol or illicit drug use or abuse. Again, lives in the community. He is . Family history otherwise noncontributory. REVIEW OF SYSTEMS: No loss of consciousness. No new onset seizures. No new onset focal weakness. No gross hematochezia or melena. No gross hematuria or dysuria. No hematemesis. He denies hemoptysis. Denies heat or cold intolerance. Denies polydipsia or polyuria. Complete 13-system review of systems obtained. Pertinent positives and/or negatives as in body of history above, otherwise they are noncontributory. PHYSICAL EXAMINATION: VITAL SIGNS: At presentation in the Emergency Room, he was afebrile, temperature 98.4 degrees Fahrenheit, pulse was as high as 102, respiratory rate 35, blood pressure 128/69, oxygen sats were 96%, inspired oxygen concentration was not recorded. When I stopped by to see him, O2 sats were 95% on 2 liters nasal cannula. HEAD, EYES, EARS, NOSE, AND THROAT: He is anicteric. No conjunctival erythema. Oropharynx is moist. He has a Mallampati #3 oropharynx. No gross jugular venous distention. He does have a large neck circumference. No thyromegaly. Grossly, no palpable lymph nodes in the supraclavicular or submandibular lymph node chains. LUNGS: Auscultation of both lung torres, diminished bilateral breath sounds, inspiratory rhonchi, faint expiratory wheezing, and prolonged expiratory phase. HEART: Sounds 1 and 2 are heard. They were regular in rate and rhythm at the time of my evaluation without rubs or murmurs. ABDOMEN: Soft, full. It is protuberant. Bowel sounds are positive, nontender. No palpable hepatosplenomegaly. EXTREMITIES: Without overt digital clubbing, cyanosis, no pedal edema. Dorsalis pedis pulses are palpable bilaterally. NEUROLOGIC: Pupils are equal, round, about 4 mm, reactive to light. Extraocular muscle movements are intact. He moved all 4 extremities spontaneously. Power was 5/5 bilaterally. The skin is of normal turgor without overt cellulitis or rash. LABORATORY DATA: From my review, admission white cell count 11,100, hemoglobin 15.0, hematocrit 45.4, platelet count 286. No manual differential. Arterial blood gas showed a pH of 7.31 with a pCO2 of 48, pO2 of 83 and this was on 3 liters nasal cannula at that time. Serum sodium is 138, potassium 3.9, chloride 100, bicarbonate 27, BUN 11, creatinine 0.6, glucose 167. No microbiology studies. Chest x-ray was done. I have reviewed the images. I have also reviewed the radiologist's interpretation. Gross cardiomegaly, increased interstitial markings, chronic looking, slightly rotated to the left, lordotic film, no gross pneumothorax, no gross bony fractures, no focal infiltrate. ASSESSMENT: 1. [id number]-[id number] hypoxemic respiratory failure at presentation. 2. Acute chronic obstructive pulmonary disease exacerbation. 3. 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 4. History of cerebrovascular accident. 5. Diabetes. 6. Parkinson's disease. 7. History of syncope. 8. Leukocytosis at presentation. 9. Hypercapnic/respiratory acidosis. 10. Obesity. PLAN: I do think it is prudent to go ahead and do a limited venosus thromboembolic disorder workup. He is not currently on any anticoagulation at home. It is unclear the reason why. I will get D-dimers plus or minus lower extremity Dopplers. I have a low pretest probability for possible venous thromboembolic phenomenal. We will continue systemic steroids with a slow taper. We will continue short acting bronchodilators; however, I will add long-acting bronchodilators as well as inhaled corticosteroids. I will taper the Solu-Medrol to 60 mg IV q.8 hours. We will continue empiric antibiotic therapy. Sputum will be sent for Gram stain cultures and sensitivities. He is appropriately on DVT prophylaxis. He will be placed on GI prophylaxis. I have stressed using bilevel positive airway pressure ventilation therapy at bedtime for now to ensure he gets adequate ventilation initially. We will repeat his ABG in the morning. Flu and pneumonia vaccination will be addressed per protocol. Thank you very much for the consult, Dr. Elkins. We will follow along. We will make further recommendations as picture progresses/becomes clearer. We will continue to watch him in the step down unit in case of decompensation. JOB# [id number] ODALYS/BG CUENCA
[2018-03-30] MEDS: BROVANA NEBU IH SCH ×3 (00:38→19:57)
[2018-03-30] MEDS: PULMICORT IH SCH ×3 (00:39→19:57)
[2018-03-30] MEDS: DUONEB *Not for PRN Use IH SCH ×4 (02:25→19:59)
[2018-03-30 05:52] LABS: Basophils % (Auto) 0.1 % (0.0-1.8); Hematocrit 39.5 % (35.5-45.6); Hemoglobin 13.3 gm/dl (11.8-15.2); Lymphocytes # (Auto) 0.7 K/mm3 (1.2-5.4); Lymphocytes % (Auto) 11.4 % (13.4-35.0); Mean Corpuscular HGB Conc 34 % (32-34); Mean Corpuscular Volume 89 fl (84-94); Monocytes # (Auto) 0.2 K/mm3 (0.0-0.8); Monocytes % (Auto) 3.5 % (0.0-7.3); Platelet Count 260 K/mm3 (140-440); Red Blood Count 4.46 M/mm3 (3.65-5.03); Red Cell Distribution Width 16.1 % (13.2-15.2)
[2018-03-30] MEDS: HumaLOG SUB-Q SCH ×3 (05:55→18:01)
[2018-03-30] MEDS: SOLU-Medrol IV SCH ×3 (05:56→22:09)
[2018-03-30 06:23] LABS: BUN/Creatinine Ratio 29; Blood Urea Nitrogen 20 mg/dL (9-20); Calcium 9.1 mg/dL (8.4-10.2); Hemolysis Index 8
[2018-03-30] MEDS: REQUIP PO SCH ×3 (08:12→20:56)
[2018-03-30] MEDS: GLUCOPHAGE PO SCH ×2 (08:12→18:01)
[2018-03-30] MEDS: HALFPRIN EC PO SCH (10:03)
[2018-03-30] MEDS: LOVENOX SUB-Q SCH (10:03)
[2018-03-30] MEDS: SODIUM CHLORIDE FLUSH SYRINGE 10 ML IV SCH ×2 (10:04→22:11)
[2018-03-30] MEDS: SINEMET PO SCH ×4 (10:04→21:54)
[2018-03-30] MEDS: PEPCID PO SCH (10:04)
[2018-03-30] MEDS: VITAMIN B-12 PO SCH (10:04)
[2018-03-30] MEDS: ZESTRIL PO SCH (10:05)
[2018-03-30] MEDS: ZITHROMAX 500 MG in NACL 0.9% 250ML 250 ML IV SCH (10:09)
--- NOTE | 2018-03-30 13:20 | Progress Note ---
Assessment and Plan Assessment and plan: Patient was admitted this morning with worsening shortness of breath, Seen and evaluated,medical records reviewed. Assessment : --Acute hypoxic Respiratory failure --Acute COPD exacerbation --hypertension --diabetes --CVA, Parkinson's Plan Continue medical treatment including steroids and nebulizer and oxygen -Continue to wean off oxygen Continue meds for chronic conditions History Interval history: Review of systems Constitutional: No fevers, no malaise, no joint pains CVS: No chest pain, no orthopnea, no dyspnea on exertion, no pedal edema GI: No abdominal pain, no diarrhea, no vomiting, no constipation Respiratory: Shortness of breath is improved, patient is now off BiPAP Hospitalist Physical - Physical exam Narrative exam: General.: Appears well, no distress, nontoxic HEENT: Moist mucous membranes, extraocular muscles intact, no lymphadenopathy Neck: supple Cardiac: S1-S2 heard Lungs: Decreased air entry Abdomen: soft , nontender, nondistended, bowel sounds positive Extremities: no edema clubbing or cyanosis Skin: no rash or lesions Neurologic: no gross focal deficits Psych: calm, and cooperative - Constitutional Vitals: Temp Pulse Resp BP Pulse Ox 98.4 F 97 H 28 H 122/60 94 03/30/18 12:00 03/30/18 08:00 03/30/18 08:00 03/30/18 07:01 03/30/18 08:00 Results - Labs CBC & Chem 7: 03/30/18 05:25 03/30/18 05:25 Labs: Laboratory Last Values WBC 6.4 K/mm3 (4.5-11.0) 03/30/18 05:25 RBC 4.46 M/mm3 (3.65-5.03) 03/30/18 05:25 Hgb 13.3 gm/dl (11.8-15.2) 03/30/18 05:25 Hct 39.5 % (35.5-45.6) 03/30/18 05:25 MCV 89 fl (84-94) 03/30/18 05:25 MCH 30 pg (28-32) 03/30/18 05:25 MCHC 34 % (32-34) 03/30/18 05:25 RDW 16.1 % (13.2-15.2) H 03/30/18 05:25 Plt Count 260 K/mm3 (140-440) 03/30/18 05:25 Lymph % (Auto) 11.4 % (13.4-35.0) L 03/30/18 05:25 Clarke % (Auto) 3.5 % (0.0-7.3) 03/30/18 05:25 Eos % (Auto) 0.0 % (0.0-4.3) 03/30/18 05:25 Baso % (Auto) 0.1 % (0.0-1.8) 03/30/18 05:25 Lymph # 0.7 K/mm3 (1.2-5.4) L 03/30/18 05:25 Clarke # 0.2 K/mm3 (0.0-0.8) 03/30/18 05:25 Eos # 0.0 K/mm3 (0.0-0.4) 03/30/18 05:25 Baso # 0.0 K/mm3 (0.0-0.1) 03/30/18 05:25 Add Manual Diff Complete 03/29/18 03:40 Total Counted 100 03/29/18 03:40 Seg Neutrophils % 85.0 % (40.0-70.0) H 03/30/18 05:25 Seg Neuts % (Manual) 91.0 % (40.0-70.0) H 03/29/18 03:40 Band Neutrophils % 2.0 % 03/29/18 03:40 Lymphocytes % (Manual) 5.0 % (13.4-35.0) L 03/29/18 03:40 Reactive Lymphs % (Man) 0 % 03/29/18 03:40 Monocytes % (Manual) 2.0 % (0.0-7.3) 03/29/18 03:40 Eosinophils % (Manual) 0 % (0.0-4.3) 03/29/18 03:40 Basophils % (Manual) 0 % (0.0-1.8) 03/29/18 03:40 Metamyelocytes % 0 % 03/29/18 03:40 Myelocytes % 0 % 03/29/18 03:40 Promyelocytes % 0 % 03/29/18 03:40 Blast Cells % 0 % 03/29/18 03:40 Nucleated RBC % Not Reportable 03/29/18 03:40 Seg Neutrophils # 5.5 K/mm3 (1.8-7.7) 03/30/18 05:25 Seg Neutrophils # Man 6.6 K/mm3 (1.8-7.7) 03/29/18 03:40 Band Neutrophils # 0.1 K/mm3 03/29/18 03:40 Lymphocytes # (Manual) 0.4 K/mm3 (1.2-5.4) L 03/29/18 03:40 Abs React Lymphs (Man) 0.0 K/mm3 03/29/18 03:40 Monocytes # (Manual) 0.1 K/mm3 (0.0-0.8) 03/29/18 03:40 Eosinophils # (Manual) 0.0 K/mm3 (0.0-0.4) 03/29/18 03:40 Basophils # (Manual) 0.0 K/mm3 (0.0-0.1) 03/29/18 03:40 Metamyelocytes # 0.0 K/mm3 03/29/18 03:40 Myelocytes # 0.0 K/mm3 03/29/18 03:40 Promyelocytes # 0.0 K/mm3 03/29/18 03:40 Blast Cells # 0.0 K/mm3 03/29/18 03:40 WBC Morphology Not Reportable 03/29/18 03:40 Hypersegmented Neuts Not Reportable 03/29/18 03:40 Hyposegmented Neuts Not Reportable 03/29/18 03:40 Hypogranular Neuts Not Reportable 03/29/18 03:40 Smudge Cells Not Reportable 03/29/18 03:40 Toxic Granulation Not Reportable 03/29/18 03:40 Toxic Vacuolation Not Reportable 03/29/18 03:40 Dohle Bodies Not Reportable 03/29/18 03:40 Pelger-Huet Anomaly Not Reportable 03/29/18 03:40 Melissa Rods Not Reportable 03/29/18 03:40 Platelet Estimate Appears normal 03/29/18 03:40 Clumped Platelets Not Reportable 03/29/18 03:40 Plt Clumps, EDTA Not Reportable 03/29/18 03:40 Large Platelets Not Reportable 03/29/18 03:40 Giant Platelets Not Reportable 03/29/18 03:40 Platelet Satelliting Not Reportable 03/29/18 03:40 Plt Morphology Comment Not Reportable 03/29/18 03:40 RBC Morphology Normal 03/29/18 03:40 Dimorphic RBCs Not Reportable 03/29/18 03:40 Polychromasia Not Reportable 03/29/18 03:40 Hypochromasia Not Reportable 03/29/18 03:40 Poikilocytosis Not Reportable 03/29/18 03:40 Anisocytosis Not Reportable 03/29/18 03:40 Microcytosis Not Reportable 03/29/18 03:40 Macrocytosis Not Reportable 03/29/18 03:40 Spherocytes Not Reportable 03/29/18 03:40 Pappenheimer Bodies Not Reportable 03/29/18 03:40 Sickle Cells Not Reportable 03/29/18 03:40 Target Cells Not Reportable 03/29/18 03:40 Tear Drop Cells Not Reportable 03/29/18 03:40 Ovalocytes Not Reportable 03/29/18 03:40 Helmet Cells Not Reportable 03/29/18 03:40 Argueta-Northbrook Bodies Not Reportable 03/29/18 03:40 Seward Rings Not Reportable 03/29/18 03:40 Florence Cells Not Reportable 03/29/18 03:40 Bite Cells Not Reportable 03/29/18 03:40 Crenated Cell Not Reportable 03/29/18 03:40 Elliptocytes Not Reportable 03/29/18 03:40 Acanthocytes (Spur) Not Reportable 03/29/18 03:40 Rouleaux Not Reportable 03/29/18 03:40 Hemoglobin C Crystals Not Reportable 03/29/18 03:40 Schistocytes Not Reportable 03/29/18 03:40 Malaria parasites Not Reportable 03/29/18 03:40 Shyam Bodies Not Reportable 03/29/18 03:40 Hem Pathologist Commnt No 03/29/18 03:40 D-Dimer 244.93 ng/mlDDU (0-234) H 03/29/18 21:37 POC ABG pH 7.311 (7.35-7.45) L 03/29/18 02:39 POC ABG pCO2 48.1 (35-45) H 03/29/18 02:39 POC ABG pO2 83 (80-105) 03/29/18 02:39 POC ABG HCO3 24.2 03/29/18 02:39 POC ABG Total CO2 26 03/29/18 02:39 POC ABG O2 Sat 95 03/29/18 02:39 POC ABG Base Excess -2 03/29/18 02:39 FiO2 32 % 03/29/18 02:39 Sodium 138 mmol/L (137-145) 03/30/18 05:25 Potassium 4.7 mmol/L (3.6-5.0) D 03/30/18 05:25 Chloride 100.7 mmol/L (98-107) 03/30/18 05:25 Carbon Dioxide 24 mmol/L (22-30) 03/30/18 05:25 Anion Gap 18 mmol/L 03/30/18 05:25 BUN 20 mg/dL (9-20) 03/30/18 05:25 Creatinine 0.7 mg/dL (0.8-1.5) L 03/30/18 05:25 Estimated GFR > 60 ml/min 03/30/18 05:25 BUN/Creatinine Ratio 29 % 03/30/18 05:25 Glucose 186 mg/dL (75-100) H 03/30/18 05:25 POC Glucose 200 (70-105) H 03/30/18 12:12 Calcium 9.1 mg/dL (8.4-10.2) 03/30/18 05:25
--- NOTE | 2018-03-30 17:58 | Progress Note ---
Assessment and Plan [id number] hypoxemic respiratory failure at presentation. Acute chronic obstructive pulmonary disease exacerbation. 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 History of cerebrovascular accident. Diabetes type II Parkinson's disease. History of syncope. Leukocytosis at presentation. Hypercapnic/respiratory acidosis. Obesity - continue supplemental oxygen to keep sat's > 89% - continue bronchodilators (NANCY & LABA) with pulmonary hygiene per RT - continue systemic steroids; continue taper in am - continue empiric CAP AB's - BIPAP qhs / prn - PT/OT - continue pther chronic disease med's and care per attending ..... 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 Seen and examined at bedside; 24hour events reviewed; nursing and respiratory care staff consulted; no adverse overnight events reported to me; resting peacefully in bed; states still SOB; denies acute chest pains or palpitations; NO N/V/F/C Objective Vital Signs - 12hr 03/30/18 03/30/18 03/30/18 06:00 07:01 07:34 Temperature Pulse Rate 76 84 Pulse Rate [ 85 Anterior Bilateral Throughout] Pulse Rate [ From Monitor] Respiratory 22 30 H Rate Respiratory 20 Rate [Anterior Bilateral Throughout] Blood Pressure 109/72 122/60 O2 Sat by Pulse 95 95 Oximetry 03/30/18 03/30/18 03/30/18 07:35 07:39 08:00 Temperature 98.0 F Pulse Rate 102 H Pulse Rate [ 88 Anterior Bilateral Throughout] Pulse Rate [ 97 H From Monitor] Respiratory 28 H Rate Respiratory 20 Rate [Anterior Bilateral Throughout] Blood Pressure O2 Sat by Pulse 93 94 Oximetry 03/30/18 03/30/18 03/30/18 08:01 09:00 10:00 Temperature Pulse Rate 99 H Pulse Rate [ Anterior Bilateral Throughout] Pulse Rate [ From Monitor] Respiratory 29 H Rate Respiratory Rate [Anterior Bilateral Throughout] Blood Pressure 112/82 117/61 110/60 O2 Sat by Pulse 89 91 92 Oximetry 03/30/18 03/30/18 03/30/18 10:05 11:01 12:00 Temperature 98.4 F Pulse Rate 102 H 99 H Pulse Rate [ Anterior Bilateral Throughout] Pulse Rate [ 99 H From Monitor] Respiratory 36 H 26 H Rate Respiratory Rate [Anterior Bilateral Throughout] Blood Pressure 110/60 113/65 O2 Sat by Pulse 90 96 Oximetry 03/30/18 03/30/18 03/30/18 12:01 13:00 14:00 Temperature Pulse Rate 97 H 97 H 92 H Pulse Rate [ Anterior Bilateral Throughout] Pulse Rate [ From Monitor] Respiratory 25 H 23 38 H Rate Respiratory Rate [Anterior Bilateral Throughout] Blood Pressure 108/57 116/63 112/62 O2 Sat by Pulse 92 95 91 Oximetry 03/30/18 03/30/18 15:01 16:00 Temperature 98.9 F Pulse Rate 94 H Pulse Rate [ Anterior Bilateral Throughout] Pulse Rate [ From Monitor] Respiratory 18 Rate Respiratory Rate [Anterior Bilateral Throughout] Blood Pressure 114/54 O2 Sat by Pulse 92 Oximetry Constitutional: no acute distress, other (elderly looking CM, normocephalic and atraumatic with mildly increase respiratory effort at rest) Eyes: non-icteric ENT: oropharynx moist, other (mallampati 3-4) Neck: supple, no lymphadenopathy, no JVD, other (large neck circumference) Effort: mildly labored Ascultation: Bilateral: diminished breath sounds, rhonchi Percussion: Bilateral: not dull Cardiovascular: regular rate and rhythm Gastrointestinal: normoactive bowel sounds, soft, non-tender, non-distended Integumentary: normal Extremities: no cyanosis, no edema, pink and warm, pulses normal, no ischemia or petechiae Neurologic: normal mental status, non-focal exam, pupils equal and round, motor strength normal and Psychiatric: mood appropriate, affect normal CBC and BMP: 03/30/18 05:25 03/30/18 05:25 ABG, PT/INR, D-dimer: ABG POC ABG pH 7.311 (7.35-7.45) L 03/29/18 02:39 POC ABG pCO2 48.1 (35-45) H 03/29/18 02:39 POC ABG pO2 83 (80-105) 03/29/18 02:39 POC ABG HCO3 24.2 03/29/18 02:39 POC ABG Total CO2 26 03/29/18 02:39 POC ABG O2 Sat 95 03/29/18 02:39 PT/INR, D-dimer D-Dimer 244.93 ng/mlDDU (0-234) H 03/29/18 21:37 Abnormal lab findings: Abnormal Labs 03/28/18 03/28/18 03/29/18 23:50 23:50 02:39 WBC 11.1 H RBC 5.13 H RDW 15.9 H Lymph % (Auto) Fergus % (Auto) 7.7 H Eos % (Auto) 13.3 H Lymph # Fergus # 0.9 H Eos # 1.5 H Seg Neutrophils % Seg Neuts % (Manual) Lymphocytes % (Manual) Lymphocytes # (Manual) D-Dimer POC ABG pH 7.311 L POC ABG pCO2 48.1 H Creatinine 0.6 L Glucose 167 H POC Glucose 03/29/18 03/29/18 03/29/18 03:40 03:40 05:37 WBC RBC RDW 15.9 H Lymph % (Auto) [place] % (Auto) Eos % (Auto) Lymph # Fergus # Eos # Seg Neutrophils % Seg Neuts % (Manual) 91.0 H Lymphocytes % (Manual) 5.0 L Lymphocytes # (Manual) 0.4 L D-Dimer POC ABG pH POC ABG pCO2 Creatinine 0.6 L Glucose 248 H POC Glucose 228 H 03/29/18 03/29/18 03/29/18 07:32 11:19 17:08 WBC RBC RDW Lymph % (Auto) [place] % (Auto) Eos % (Auto) Lymph # [place] # Eos # Seg Neutrophils % Seg Neuts % (Manual) Lymphocytes % (Manual) Lymphocytes # (Manual) D-Dimer POC ABG pH POC ABG pCO2 Creatinine Glucose POC Glucose 195 H 213 H 230 H 03/29/18 03/29/18 03/30/18 21:37 23:28 05:25 WBC RBC RDW 16.1 H Lymph % (Auto) 11.4 L [place] % (Auto) Eos % (Auto) Lymph # 0.7 L [place] # Eos # Seg Neutrophils % 85.0 H Seg Neuts % (Manual) Lymphocytes % (Manual) Lymphocytes # (Manual) D-Dimer 244.93 H POC ABG pH POC ABG pCO2 Creatinine Glucose POC Glucose 180 H 03/30/18 03/30/18 03/30/18 05:25 05:40 08:47 WBC RBC RDW Lymph % (Auto) Fergus % (Auto) Eos % (Auto) Lymph # [place] # Eos # Seg Neutrophils % Seg Neuts % (Manual) Lymphocytes % (Manual) Lymphocytes # (Manual) D-Dimer POC ABG pH POC ABG pCO2 Creatinine 0.7 L Glucose 186 H POC Glucose 174 H 175 H 03/30/18 03/30/18 12:12 17:35 WBC RBC RDW Lymph % (Auto) [place] % (Auto) Eos % (Auto) Lymph # [place] # Eos # Seg Neutrophils % Seg Neuts % (Manual) Lymphocytes % (Manual) Lymphocytes # (Manual) D-Dimer POC ABG pH POC ABG pCO2 Creatinine Glucose POC Glucose 200 H 147 H Chest x-ray: image reviewed Allied health notes reviewed: nursing
--- NOTE | 2018-03-30 20:17 | Vascular Lab Report ---
FINAL REPORT PROCEDURE: Bilateral lower extremity duplex venous ultrasound. TECHNIQUE: Routine imaging of the deep venous system of each leg was performed. This included Dopple r spectral analysis and color-flow imaging. HISTORY: Leg swelling. COMPARISON: No prior studies are available for comparison. FINDINGS: Right leg: The deep venous system is compressible. Flow is confirmed by Doppler evaluation and color imaging. There is normal augmentation of blood flow demonstrated. Left leg: The deep venous system is compressible. Flow is confirmed by Doppler evaluation and color i maging. There is normal augmentation of blood flow demonstrated. IMPRESSION: Normal studies.
[2018-03-31] MEDS: HumaLOG SUB-Q SCH ×4 (01:00→18:46)
[2018-03-31] MEDS: DUONEB *Not for PRN Use IH SCH ×4 (02:23→21:13)
[2018-03-31] MEDS: SOLU-Medrol IV SCH ×2 (05:58→18:53)
[2018-03-31] MEDS: PULMICORT IH SCH ×2 (08:37→21:12)
[2018-03-31] MEDS: BROVANA NEBU IH SCH ×2 (08:37→21:12)
[2018-03-31] MEDS: REQUIP PO SCH (10:28)
[2018-03-31] MEDS: LOVENOX SUB-Q SCH (10:28)
[2018-03-31] MEDS: GLUCOPHAGE PO SCH ×2 (10:28→18:54)
[2018-03-31] MEDS: HALFPRIN EC PO SCH (10:28)
[2018-03-31] MEDS: SINEMET PO SCH ×4 (10:29→21:48)
[2018-03-31] MEDS: PEPCID PO SCH (10:29)
[2018-03-31] MEDS: VITAMIN B-12 PO SCH (10:29)
[2018-03-31] MEDS: SODIUM CHLORIDE FLUSH SYRINGE 10 ML IV SCH ×2 (10:30→21:51)
[2018-03-31] MEDS: ZITHROMAX 500 MG in NACL 0.9% 250ML 250 ML IV SCH (10:33)
[2018-03-31] MEDS: ZESTRIL PO SCH (10:33)
--- NOTE | 2018-03-31 14:08 | Progress Note ---
Assessment and Plan Assessment and plan: Patient was admitted this morning with worsening shortness of breath, Seen and evaluated,medical records reviewed. Assessment : --Acute hypoxic Respiratory failure --Acute COPD exacerbation --hypertension --diabetes --CVA, Parkinson's Plan Continue medical treatment including steroids and nebulizer and oxygen -Continue to wean off oxygen Continue meds for chronic conditions PT consult History Interval history: Review of systems Constitutional: No fevers, no malaise, no joint pains CVS: No chest pain, no orthopnea, no dyspnea on exertion, no pedal edema GI: No abdominal pain, no diarrhea, no vomiting, no constipation Respiratory: Shortness of breath is improved Hospitalist Physical - Physical exam Narrative exam: General.: Appears well, no distress, nontoxic HEENT: Moist mucous membranes, extraocular muscles intact, no lymphadenopathy Neck: supple Cardiac: S1-S2 heard Lungs: Decreased air entry Abdomen: soft , nontender, nondistended, bowel sounds positive Extremities: no edema clubbing or cyanosis Skin: no rash or lesions Neurologic: no gross focal deficits Psych: calm, and cooperative - Constitutional Vitals: Temp Pulse Resp BP Pulse Ox 97.8 F 83 21 135/59 93 03/31/18 08:00 03/31/18 10:33 03/31/18 10:00 03/31/18 10:33 03/31/18 10:00 Results - Labs CBC & Chem 7: 03/30/18 05:25 03/30/18 05:25 Labs: Laboratory Last Values WBC 6.4 K/mm3 (4.5-11.0) 03/30/18 05:25 RBC 4.46 M/mm3 (3.65-5.03) 03/30/18 05:25 Hgb 13.3 gm/dl (11.8-15.2) 03/30/18 05:25 Hct 39.5 % (35.5-45.6) 03/30/18 05:25 MCV 89 fl (84-94) 03/30/18 05:25 MCH 30 pg (28-32) 03/30/18 05:25 MCHC 34 % (32-34) 03/30/18 05:25 RDW 16.1 % (13.2-15.2) H 03/30/18 05:25 Plt Count 260 K/mm3 (140-440) 03/30/18 05:25 Lymph % (Auto) 11.4 % (13.4-35.0) L 03/30/18 05:25 [place] % (Auto) 3.5 % (0.0-7.3) 03/30/18 05:25 Eos % (Auto) 0.0 % (0.0-4.3) 03/30/18 05:25 Baso % (Auto) 0.1 % (0.0-1.8) 03/30/18 05:25 Lymph # 0.7 K/mm3 (1.2-5.4) L 03/30/18 05:25 [place] # 0.2 K/mm3 (0.0-0.8) 03/30/18 05:25 Eos # 0.0 K/mm3 (0.0-0.4) 03/30/18 05:25 Baso # 0.0 K/mm3 (0.0-0.1) 03/30/18 05:25 Add Manual Diff Complete 03/29/18 03:40 Total Counted 100 03/29/18 03:40 Seg Neutrophils % 85.0 % (40.0-70.0) H 03/30/18 05:25 Seg Neuts % (Manual) 91.0 % (40.0-70.0) H 03/29/18 03:40 Band Neutrophils % 2.0 % 03/29/18 03:40 Lymphocytes % (Manual) 5.0 % (13.4-35.0) L 03/29/18 03:40 Reactive Lymphs % (Man) 0 % 03/29/18 03:40 Monocytes % (Manual) 2.0 % (0.0-7.3) 03/29/18 03:40 Eosinophils % (Manual) 0 % (0.0-4.3) 03/29/18 03:40 Basophils % (Manual) 0 % (0.0-1.8) 03/29/18 03:40 Metamyelocytes % 0 % 03/29/18 03:40 Myelocytes % 0 % 03/29/18 03:40 Promyelocytes % 0 % 03/29/18 03:40 Blast Cells % 0 % 03/29/18 03:40 Nucleated RBC % Not Reportable 03/29/18 03:40 Seg Neutrophils # 5.5 K/mm3 (1.8-7.7) 03/30/18 05:25 Seg Neutrophils # Man 6.6 K/mm3 (1.8-7.7) 03/29/18 03:40 Band Neutrophils # 0.1 K/mm3 03/29/18 03:40 Lymphocytes # (Manual) 0.4 K/mm3 (1.2-5.4) L 03/29/18 03:40 Abs React Lymphs (Man) 0.0 K/mm3 03/29/18 03:40 Monocytes # (Manual) 0.1 K/mm3 (0.0-0.8) 03/29/18 03:40 Eosinophils # (Manual) 0.0 K/mm3 (0.0-0.4) 03/29/18 03:40 Basophils # (Manual) 0.0 K/mm3 (0.0-0.1) 03/29/18 03:40 Metamyelocytes # 0.0 K/mm3 03/29/18 03:40 Myelocytes # 0.0 K/mm3 03/29/18 03:40 Promyelocytes # 0.0 K/mm3 03/29/18 03:40 Blast Cells # 0.0 K/mm3 03/29/18 03:40 WBC Morphology Not Reportable 03/29/18 03:40 Hypersegmented Neuts Not Reportable 03/29/18 03:40 Hyposegmented Neuts Not Reportable 03/29/18 03:40 Hypogranular Neuts Not Reportable 03/29/18 03:40 Smudge Cells Not Reportable 03/29/18 03:40 Toxic Granulation Not Reportable 03/29/18 03:40 Toxic Vacuolation Not Reportable 03/29/18 03:40 Dohle Bodies Not Reportable 03/29/18 03:40 Pelger-Huet Anomaly Not Reportable 03/29/18 03:40 Melissa Rods Not Reportable 03/29/18 03:40 Platelet Estimate Appears normal 03/29/18 03:40 Clumped Platelets Not Reportable 03/29/18 03:40 Plt Clumps, EDTA Not Reportable 03/29/18 03:40 Large Platelets Not Reportable 03/29/18 03:40 Giant Platelets Not Reportable 03/29/18 03:40 Platelet Satelliting Not Reportable 03/29/18 03:40 Plt Morphology Comment Not Reportable 03/29/18 03:40 RBC Morphology Normal 03/29/18 03:40 Dimorphic RBCs Not Reportable 03/29/18 03:40 Polychromasia Not Reportable 03/29/18 03:40 Hypochromasia Not Reportable 03/29/18 03:40 Poikilocytosis Not Reportable 03/29/18 03:40 Anisocytosis Not Reportable 03/29/18 03:40 Microcytosis Not Reportable 03/29/18 03:40 Macrocytosis Not Reportable 03/29/18 03:40 Spherocytes Not Reportable 03/29/18 03:40 Pappenheimer Bodies Not Reportable 03/29/18 03:40 Sickle Cells Not Reportable 03/29/18 03:40 Target Cells Not Reportable 03/29/18 03:40 Tear Drop Cells Not Reportable 03/29/18 03:40 Ovalocytes Not Reportable 03/29/18 03:40 Helmet Cells Not Reportable 03/29/18 03:40 [place] Bodies Not Reportable 03/29/18 03:40 Beattie Rings Not Reportable 03/29/18 03:40 [place] Cells Not Reportable 03/29/18 03:40 Bite Cells Not Reportable 03/29/18 03:40 Crenated Cell Not Reportable 03/29/18 03:40 Elliptocytes Not Reportable 03/29/18 03:40 Acanthocytes (Spur) Not Reportable 03/29/18 03:40 Rouleaux Not Reportable 03/29/18 03:40 Hemoglobin C Crystals Not Reportable 03/29/18 03:40 Schistocytes Not Reportable 03/29/18 03:40 Malaria parasites Not Reportable 03/29/18 03:40 Shyam Bodies Not Reportable 03/29/18 03:40 Hem Pathologist Commnt No 03/29/18 03:40 D-Dimer 244.93 ng/mlDDU (0-234) H 03/29/18 21:37 POC ABG pH 7.311 (7.35-7.45) L 03/29/18 02:39 POC ABG pCO2 48.1 (35-45) H 03/29/18 02:39 POC ABG pO2 83 (80-105) 03/29/18 02:39 POC ABG HCO3 24.2 03/29/18 02:39 POC ABG Total CO2 26 03/29/18 02:39 POC ABG O2 Sat 95 03/29/18 02:39 POC ABG Base Excess -2 03/29/18 02:39 FiO2 32 % 03/29/18 02:39 Sodium 138 mmol/L (137-145) 03/30/18 05:25 Potassium 4.7 mmol/L (3.6-5.0) D 03/30/18 05:25 Chloride 100.7 mmol/L (98-107) 03/30/18 05:25 Carbon Dioxide 24 mmol/L (22-30) 03/30/18 05:25 Anion Gap 18 mmol/L 03/30/18 05:25 BUN 20 mg/dL (9-20) 03/30/18 05:25 Creatinine 0.7 mg/dL (0.8-1.5) L 03/30/18 05:25 Estimated GFR > 60 ml/min 03/30/18 05:25 BUN/Creatinine Ratio 29 % 03/30/18 05:25 Glucose 186 mg/dL (75-100) H 03/30/18 05:25 POC Glucose 207 (70-105) H 03/31/18 06:06 Calcium 9.1 mg/dL (8.4-10.2) 03/30/18 05:25
--- NOTE | 2018-03-31 15:34 | Progress Note ---
Assessment and Plan [id number] hypoxemic respiratory failure at presentation. Acute chronic obstructive pulmonary disease exacerbation. 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 History of cerebrovascular accident. Diabetes type II Parkinson's disease. History of syncope. Leukocytosis at presentation. Hypercapnic/respiratory acidosis. Obesity - continue supplemental oxygen to keep sat's > 89% - continue bronchodilators (NANCY & LABA) with pulmonary hygiene per RT - continue systemic steroids; tapered to 40 mg IV q12h - continue empiric CAP AB's - BIPAP prn - PT/OT - continue pther chronic disease med's and care per attending - tentative discharge next 24 hours from a pulmonary standpoint ..... 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 Seen and examined at bedside; 24hour events reviewed; nursing and respiratory care staff consulted; no adverse overnight events reported to me; resting peacefully in bed; looks and feels better; denies acute chest pains or palpitations; No N/V/F/C; no cough or expectoration Objective Vital Signs - 12hr 03/31/18 03/31/18 03/31/18 04:00 05:00 06:00 Temperature Pulse Rate 84 81 79 Pulse Rate [ 93 H From Monitor] Respiratory 21 29 H 19 Rate Blood Pressure 127/70 119/70 119/60 O2 Sat by Pulse 92 92 90 Oximetry 03/31/18 03/31/18 03/31/18 07:00 08:00 08:01 Temperature 97.8 F Pulse Rate 79 90 87 Pulse Rate [ 90 From Monitor] Respiratory 33 H 24 25 H Rate Blood Pressure 124/63 116/90 O2 Sat by Pulse 93 91 93 Oximetry 03/31/18 03/31/18 03/31/18 09:01 10:00 10:33 Temperature Pulse Rate 103 H 86 83 Pulse Rate [ From Monitor] Respiratory 30 H 21 Rate Blood Pressure 157/80 132/80 135/59 O2 Sat by Pulse 92 93 Oximetry Constitutional: no acute distress, other (elderly looking CM, normocephalic and atraumatic with mildly increase respiratory effort at rest) Eyes: non-icteric ENT: oropharynx moist, other (mallampati 3-4) Neck: supple, no lymphadenopathy, no JVD, other (large neck circumference) Effort: mildly labored Ascultation: Bilateral: diminished breath sounds, rhonchi Percussion: Bilateral: not dull Cardiovascular: regular rate and rhythm Gastrointestinal: normoactive bowel sounds, soft, non-tender, non-distended Integumentary: normal Extremities: no cyanosis, no edema, pink and warm, pulses normal, no ischemia or petechiae Neurologic: normal mental status, non-focal exam, pupils equal and round, motor strength normal and Psychiatric: mood appropriate, affect normal CBC and BMP: 03/30/18 05:25 03/30/18 05:25 ABG, PT/INR, D-dimer: ABG POC ABG pH 7.311 (7.35-7.45) L 03/29/18 02:39 POC ABG pCO2 48.1 (35-45) H 03/29/18 02:39 POC ABG pO2 83 (80-105) 03/29/18 02:39 POC ABG HCO3 24.2 03/29/18 02:39 POC ABG Total CO2 26 03/29/18 02:39 POC ABG O2 Sat 95 03/29/18 02:39 PT/INR, D-dimer D-Dimer 244.93 ng/mlDDU (0-234) H 03/29/18 21:37 Abnormal lab findings: Abnormal Labs 03/28/18 03/28/18 03/29/18 23:50 23:50 02:39 WBC 11.1 H RBC 5.13 H RDW 15.9 H Lymph % (Auto) [place] % (Auto) 7.7 H Eos % (Auto) 13.3 H Lymph # [place] # 0.9 H Eos # 1.5 H Seg Neutrophils % Seg Neuts % (Manual) Lymphocytes % (Manual) Lymphocytes # (Manual) D-Dimer POC ABG pH 7.311 L POC ABG pCO2 48.1 H Creatinine 0.6 L Glucose 167 H POC Glucose 03/29/18 03/29/18 03/29/18 03:40 03:40 05:37 WBC RBC RDW 15.9 H Lymph % (Auto) [place] % (Auto) Eos % (Auto) Lymph # [place] # Eos # Seg Neutrophils % Seg Neuts % (Manual) 91.0 H Lymphocytes % (Manual) 5.0 L Lymphocytes # (Manual) 0.4 L D-Dimer POC ABG pH POC ABG pCO2 Creatinine 0.6 L Glucose 248 H POC Glucose 228 H 03/29/18 03/29/18 03/29/18 07:32 11:19 17:08 WBC RBC RDW Lymph % (Auto) [place] % (Auto) Eos % (Auto) Lymph # [place] # Eos # Seg Neutrophils % Seg Neuts % (Manual) Lymphocytes % (Manual) Lymphocytes # (Manual) D-Dimer POC ABG pH POC ABG pCO2 Creatinine Glucose POC Glucose 195 H 213 H 230 H 03/29/18 03/29/18 03/30/18 21:37 23:28 05:25 WBC RBC RDW 16.1 H Lymph % (Auto) 11.4 L [place] % (Auto) Eos % (Auto) Lymph # 0.7 L [place] # Eos # Seg Neutrophils % 85.0 H Seg Neuts % (Manual) Lymphocytes % (Manual) Lymphocytes # (Manual) D-Dimer 244.93 H POC ABG pH POC ABG pCO2 Creatinine Glucose POC Glucose 180 H 03/30/18 03/30/18 03/30/18 05:25 05:40 08:47 WBC RBC RDW Lymph % (Auto) [place] % (Auto) Eos % (Auto) Lymph # [place] # Eos # Seg Neutrophils % Seg Neuts % (Manual) Lymphocytes % (Manual) Lymphocytes # (Manual) D-Dimer POC ABG pH POC ABG pCO2 Creatinine 0.7 L Glucose 186 H POC Glucose 174 H 175 H 03/30/18 03/30/18 03/31/18 12:12 17:35 00:05 WBC RBC RDW Lymph % (Auto) [place] % (Auto) Eos % (Auto) Lymph # [place] # Eos # Seg Neutrophils % Seg Neuts % (Manual) Lymphocytes % (Manual) Lymphocytes # (Manual) D-Dimer POC ABG pH POC ABG pCO2 Creatinine Glucose POC Glucose 200 H 147 H 168 H 03/31/18 06:06 WBC RBC RDW Lymph % (Auto) [place] % (Auto) Eos % (Auto) Lymph # [place] # Eos # Seg Neutrophils % Seg Neuts % (Manual) Lymphocytes % (Manual) Lymphocytes # (Manual) D-Dimer POC ABG pH POC ABG pCO2 Creatinine Glucose POC Glucose 207 H Allied health notes reviewed: nursing
[2018-03-31] MEDS ORDERED: PROVENTIL IH PRN (19:46)
[2018-04-01] MEDS: HumaLOG SUB-Q SCH ×4 (01:45→18:07)
[2018-04-01] MEDS: SOLU-Medrol IV SCH ×2 (06:46→20:14)
[2018-04-01] MEDS: BROVANA NEBU IH SCH ×2 (07:07→19:57)
[2018-04-01] MEDS: PULMICORT IH SCH ×2 (07:07→19:57)
[2018-04-01] MEDS: DUONEB *Not for PRN Use IH SCH ×3 (07:07→19:57)
[2018-04-01] MEDS: GLUCOPHAGE PO SCH ×2 (08:45→17:50)
[2018-04-01] MEDS: VITAMIN B-12 PO SCH (09:54)
[2018-04-01] MEDS: SINEMET PO SCH ×4 (09:55→22:37)
[2018-04-01] MEDS: HALFPRIN EC PO SCH (09:55)
[2018-04-01] MEDS: LOVENOX SUB-Q SCH (09:55)
[2018-04-01] MEDS: ZESTRIL PO SCH (09:55)
[2018-04-01] MEDS: PEPCID PO SCH (09:56)
[2018-04-01] MEDS: SODIUM CHLORIDE FLUSH SYRINGE 10 ML IV SCH ×2 (09:57→22:37)
[2018-04-01] MEDS: ZITHROMAX 500 MG in NACL 0.9% 250ML 250 ML IV SCH (11:00)
--- NOTE | 2018-04-01 11:40 | Progress Note ---
Assessment and Plan [id number] hypoxemic respiratory failure at presentation. Acute chronic obstructive pulmonary disease exacerbation. 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 History of cerebrovascular accident. Diabetes type II Parkinson's disease. History of syncope. Leukocytosis at presentation. Hypercapnic/respiratory acidosis. Obesity - continue supplemental oxygen to keep sats 88-90% -oxygen restrictive strategies - continue bronchodilators (NANCY & JOHN) with pulmonary hygiene per RT - continue systemic steroids; tapered to 40 mg IV q12h yesterday. Can start oral steroids in the morning -PT/OT/Mobility, increase activity - continue empiric antibiotics for severe AE-COPD - BIPAP prn and qhs -VTE prophylaxis - continue other chronic disease medications -influenza and pneumonia vaccination per protocol - tentative discharge next 24-48 hours from a pulmonary standpoint Discussed with RT and RN Subjective Date of service: 04/01/18 Principal diagnosis: Ac on Ch Hypoxemic Resp Failure; AE-COPD; H/O P.E.; H/O CVA; DM II Interval history: Patient is seen today for: Yvhea-bp-[id number] hypoxemic respiratory failure; Acute chronic obstructive pulmonary disease exacerbation; 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 Seen and examined at bedside; 24hour events reviewed; nursing and respiratory care staff consulted; no adverse overnight events reported to me; resting peacefully in bed; looks and feels better; denies chest pains or palpitations; No N/V/F/C; no cough or expectoration; on going intention and resting tremors. Objective Vital Signs - 12hr 04/01/18 04/01/18 04/01/18 02:41 07:07 07:17 Temperature 98.1 F Pulse Rate 63 Pulse Rate [ 59 L 66 Anterior Bilateral Throughout] Pulse Rate [ From Monitor] Respiratory 18 Rate Respiratory 18 20 Rate [Anterior Bilateral Throughout] Blood Pressure 100/51 O2 Sat by Pulse 95 93 Oximetry 04/01/18 04/01/18 04/01/18 08:00 08:11 09:55 Temperature 97.2 F L Pulse Rate 65 65 Pulse Rate [ Anterior Bilateral Throughout] Pulse Rate [ 87 From Monitor] Respiratory 21 Rate Respiratory Rate [Anterior Bilateral Throughout] Blood Pressure 126/71 126/71 O2 Sat by Pulse 92 Oximetry Constitutional: no acute distress, other (elderly looking CM, normocephalic and atraumatic with mildly increase respiratory effort at rest) Eyes: non-icteric ENT: oropharynx moist, other (mallampati 3-4) Neck: supple, no lymphadenopathy, no JVD, other (large neck circumference) Effort: mildly labored Ascultation: Bilateral: diminished breath sounds, rhonchi Percussion: Bilateral: not dull Cardiovascular: regular rate and rhythm, other (S1,S2, no murmurs, no gallops ) Gastrointestinal: normoactive bowel sounds, soft, non-tender, non-distended Integumentary: normal Extremities: no cyanosis, no edema, pink and warm, pulses normal, no ischemia or petechiae Neurologic: normal mental status, non-focal exam, pupils equal and round, motor strength normal and Psychiatric: mood appropriate, affect normal CBC and BMP: 03/30/18 05:25 03/30/18 05:25 ABG, PT/INR, D-dimer: ABG POC ABG pH 7.311 (7.35-7.45) L 03/29/18 02:39 POC ABG pCO2 48.1 (35-45) H 03/29/18 02:39 POC ABG pO2 83 (80-105) 03/29/18 02:39 POC ABG HCO3 24.2 03/29/18 02:39 POC ABG Total CO2 26 03/29/18 02:39 POC ABG O2 Sat 95 03/29/18 02:39 PT/INR, D-dimer D-Dimer 244.93 ng/mlDDU (0-234) H 03/29/18 21:37 Abnormal lab findings: Abnormal Labs 03/28/18 03/28/18 03/29/18 23:50 23:50 02:39 WBC 11.1 H RBC 5.13 H RDW 15.9 H Lymph % (Auto) [place] % (Auto) 7.7 H Eos % (Auto) 13.3 H Lymph # [place] # 0.9 H Eos # 1.5 H Seg Neutrophils % Seg Neuts % (Manual) Lymphocytes % (Manual) Lymphocytes # (Manual) D-Dimer POC ABG pH 7.311 L POC ABG pCO2 48.1 H Creatinine 0.6 L Glucose 167 H POC Glucose 03/29/18 03/29/18 03/29/18 03:40 03:40 05:37 WBC RBC RDW 15.9 H Lymph % (Auto) [place] % (Auto) Eos % (Auto) Lymph # [place] # Eos # Seg Neutrophils % Seg Neuts % (Manual) 91.0 H Lymphocytes % (Manual) 5.0 L Lymphocytes # (Manual) 0.4 L D-Dimer POC ABG pH POC ABG pCO2 Creatinine 0.6 L Glucose 248 H POC Glucose 228 H 03/29/18 03/29/18 03/29/18 07:32 11:19 17:08 WBC RBC RDW Lymph % (Auto) [place] % (Auto) Eos % (Auto) Lymph # [place] # Eos # Seg Neutrophils % Seg Neuts % (Manual) Lymphocytes % (Manual) Lymphocytes # (Manual) D-Dimer POC ABG pH POC ABG pCO2 Creatinine Glucose POC Glucose 195 H 213 H 230 H 03/29/18 03/29/18 03/30/18 21:37 23:28 05:25 WBC RBC RDW 16.1 H Lymph % (Auto) 11.4 L [place] % (Auto) Eos % (Auto) Lymph # 0.7 L [place] # Eos # Seg Neutrophils % 85.0 H Seg Neuts % (Manual) Lymphocytes % (Manual) Lymphocytes # (Manual) D-Dimer 244.93 H POC ABG pH POC ABG pCO2 Creatinine Glucose POC Glucose 180 H 03/30/18 03/30/18 03/30/18 05:25 05:40 08:47 WBC RBC RDW Lymph % (Auto) [place] % (Auto) Eos % (Auto) Lymph # [place] # Eos # Seg Neutrophils % Seg Neuts % (Manual) Lymphocytes % (Manual) Lymphocytes # (Manual) D-Dimer POC ABG pH POC ABG pCO2 Creatinine 0.7 L Glucose 186 H POC Glucose 174 H 175 H 03/30/18 03/30/18 03/31/18 12:12 17:35 00:05 WBC RBC RDW Lymph % (Auto) [place] % (Auto) Eos % (Auto) Lymph # [place] # Eos # Seg Neutrophils % Seg Neuts % (Manual) Lymphocytes % (Manual) Lymphocytes # (Manual) D-Dimer POC ABG pH POC ABG pCO2 Creatinine Glucose POC Glucose 200 H 147 H 168 H 03/31/18 03/31/18 03/31/18 06:06 12:05 18:47 WBC RBC RDW Lymph % (Auto) [place] % (Auto) Eos % (Auto) Lymph # [place] # Eos # Seg Neutrophils % Seg Neuts % (Manual) Lymphocytes % (Manual) Lymphocytes # (Manual) D-Dimer POC ABG pH POC ABG pCO2 Creatinine Glucose POC Glucose 207 H 244 H 138 H 04/01/18 04/01/18 00:48 06:43 WBC RBC RDW Lymph % (Auto) [place] % (Auto) Eos % (Auto) Lymph # [place] # Eos # Seg Neutrophils % Seg Neuts % (Manual) Lymphocytes % (Manual) Lymphocytes # (Manual) D-Dimer POC ABG pH POC ABG pCO2 Creatinine Glucose POC Glucose 180 H 137 H Chest x-ray: image reviewed (chronic changes, "dirty" lung look) Allied health notes reviewed: nursing
--- NOTE | 2018-04-01 14:48 | Progress Note ---
Assessment and Plan Assessment and plan: Patient was admitted this morning with worsening shortness of breath, Seen and evaluated,medical records reviewed. Assessment : --Acute hypoxic Respiratory failure --Acute COPD exacerbation --hypertension --diabetes --CVA, Parkinson's Plan Continue medical treatment including steroids and nebulizer and oxygen -Continue to wean off oxygen Continue meds for chronic conditions -PT consult pending History Interval history: Review of systems Constitutional: No fevers, no malaise, no joint pains CVS: No chest pain, no orthopnea, no dyspnea on exertion, no pedal edema GI: No abdominal pain, no diarrhea, no vomiting, no constipation Respiratory: Shortness of breath is improved, patient is now off BiPAP Hospitalist Physical - Physical exam Narrative exam: General.: Appears well, no distress, nontoxic HEENT: Moist mucous membranes, extraocular muscles intact, no lymphadenopathy Neck: supple Cardiac: S1-S2 heard Lungs: Decreased air entry Abdomen: soft , nontender, nondistended, bowel sounds positive Extremities: no edema clubbing or cyanosis Skin: no rash or lesions Neurologic: no gross focal deficits Psych: calm, and cooperative - Constitutional Vitals: Temp Pulse Resp BP Pulse Ox 97.2 F L 87 20 126/71 92 04/01/18 08:11 04/01/18 13:20 04/01/18 13:20 04/01/18 09:55 04/01/18 08:11 Results - Labs CBC & Chem 7: 03/30/18 05:25 03/30/18 05:25 Labs: Laboratory Last Values WBC 6.4 K/mm3 (4.5-11.0) 03/30/18 05:25 RBC 4.46 M/mm3 (3.65-5.03) 03/30/18 05:25 Hgb 13.3 gm/dl (11.8-15.2) 03/30/18 05:25 Hct 39.5 % (35.5-45.6) 03/30/18 05:25 MCV 89 fl (84-94) 03/30/18 05:25 MCH 30 pg (28-32) 03/30/18 05:25 MCHC 34 % (32-34) 03/30/18 05:25 RDW 16.1 % (13.2-15.2) H 03/30/18 05:25 Plt Count 260 K/mm3 (140-440) 03/30/18 05:25 Lymph % (Auto) 11.4 % (13.4-35.0) L 03/30/18 05:25 [place] % (Auto) 3.5 % (0.0-7.3) 03/30/18 05:25 Eos % (Auto) 0.0 % (0.0-4.3) 03/30/18 05:25 Baso % (Auto) 0.1 % (0.0-1.8) 03/30/18 05:25 Lymph # 0.7 K/mm3 (1.2-5.4) L 03/30/18 05:25 [place] # 0.2 K/mm3 (0.0-0.8) 03/30/18 05:25 Eos # 0.0 K/mm3 (0.0-0.4) 03/30/18 05:25 Baso # 0.0 K/mm3 (0.0-0.1) 03/30/18 05:25 Add Manual Diff Complete 03/29/18 03:40 Total Counted 100 03/29/18 03:40 Seg Neutrophils % 85.0 % (40.0-70.0) H 03/30/18 05:25 Seg Neuts % (Manual) 91.0 % (40.0-70.0) H 03/29/18 03:40 Band Neutrophils % 2.0 % 03/29/18 03:40 Lymphocytes % (Manual) 5.0 % (13.4-35.0) L 03/29/18 03:40 Reactive Lymphs % (Man) 0 % 03/29/18 03:40 Monocytes % (Manual) 2.0 % (0.0-7.3) 03/29/18 03:40 Eosinophils % (Manual) 0 % (0.0-4.3) 03/29/18 03:40 Basophils % (Manual) 0 % (0.0-1.8) 03/29/18 03:40 Metamyelocytes % 0 % 03/29/18 03:40 Myelocytes % 0 % 03/29/18 03:40 Promyelocytes % 0 % 03/29/18 03:40 Blast Cells % 0 % 03/29/18 03:40 Nucleated RBC % Not Reportable 03/29/18 03:40 Seg Neutrophils # 5.5 K/mm3 (1.8-7.7) 03/30/18 05:25 Seg Neutrophils # Man 6.6 K/mm3 (1.8-7.7) 03/29/18 03:40 Band Neutrophils # 0.1 K/mm3 03/29/18 03:40 Lymphocytes # (Manual) 0.4 K/mm3 (1.2-5.4) L 03/29/18 03:40 Abs React Lymphs (Man) 0.0 K/mm3 03/29/18 03:40 Monocytes # (Manual) 0.1 K/mm3 (0.0-0.8) 03/29/18 03:40 Eosinophils # (Manual) 0.0 K/mm3 (0.0-0.4) 03/29/18 03:40 Basophils # (Manual) 0.0 K/mm3 (0.0-0.1) 03/29/18 03:40 Metamyelocytes # 0.0 K/mm3 03/29/18 03:40 Myelocytes # 0.0 K/mm3 03/29/18 03:40 Promyelocytes # 0.0 K/mm3 03/29/18 03:40 Blast Cells # 0.0 K/mm3 03/29/18 03:40 WBC Morphology Not Reportable 03/29/18 03:40 Hypersegmented Neuts Not Reportable 03/29/18 03:40 Hyposegmented Neuts Not Reportable 03/29/18 03:40 Hypogranular Neuts Not Reportable 03/29/18 03:40 Smudge Cells Not Reportable 03/29/18 03:40 Toxic Granulation Not Reportable 03/29/18 03:40 Toxic Vacuolation Not Reportable 03/29/18 03:40 Dohle Bodies Not Reportable 03/29/18 03:40 Pelger-Huet Anomaly Not Reportable 03/29/18 03:40 Melissa Rods Not Reportable 03/29/18 03:40 Platelet Estimate Appears normal 03/29/18 03:40 Clumped Platelets Not Reportable 03/29/18 03:40 Plt Clumps, EDTA Not Reportable 03/29/18 03:40 Large Platelets Not Reportable 03/29/18 03:40 Giant Platelets Not Reportable 03/29/18 03:40 Platelet Satelliting Not Reportable 03/29/18 03:40 Plt Morphology Comment Not Reportable 03/29/18 03:40 RBC Morphology Normal 03/29/18 03:40 Dimorphic RBCs Not Reportable 03/29/18 03:40 Polychromasia Not Reportable 03/29/18 03:40 Hypochromasia Not Reportable 03/29/18 03:40 Poikilocytosis Not Reportable 03/29/18 03:40 Anisocytosis Not Reportable 03/29/18 03:40 Microcytosis Not Reportable 03/29/18 03:40 Macrocytosis Not Reportable 03/29/18 03:40 Spherocytes Not Reportable 03/29/18 03:40 Pappenheimer Bodies Not Reportable 03/29/18 03:40 Sickle Cells Not Reportable 03/29/18 03:40 Target Cells Not Reportable 03/29/18 03:40 Tear Drop Cells Not Reportable 03/29/18 03:40 Ovalocytes Not Reportable 03/29/18 03:40 Helmet Cells Not Reportable 03/29/18 03:40 [place] Bodies Not Reportable 03/29/18 03:40 [place] Rings Not Reportable 03/29/18 03:40 [place] Cells Not Reportable 03/29/18 03:40 Bite Cells Not Reportable 03/29/18 03:40 Crenated Cell Not Reportable 03/29/18 03:40 Elliptocytes Not Reportable 03/29/18 03:40 Acanthocytes (Spur) Not Reportable 03/29/18 03:40 Rouleaux Not Reportable 03/29/18 03:40 Hemoglobin C Crystals Not Reportable 03/29/18 03:40 Schistocytes Not Reportable 03/29/18 03:40 Malaria parasites Not Reportable 03/29/18 03:40 Shyam Bodies Not Reportable 03/29/18 03:40 Hem Pathologist Commnt No 03/29/18 03:40 D-Dimer 244.93 ng/mlDDU (0-234) H 03/29/18 21:37 POC ABG pH 7.311 (7.35-7.45) L 03/29/18 02:39 POC ABG pCO2 48.1 (35-45) H 03/29/18 02:39 POC ABG pO2 83 (80-105) 03/29/18 02:39 POC ABG HCO3 24.2 03/29/18 02:39 POC ABG Total CO2 26 03/29/18 02:39 POC ABG O2 Sat 95 03/29/18 02:39 POC ABG Base Excess -2 03/29/18 02:39 FiO2 32 % 03/29/18 02:39 Sodium 138 mmol/L (137-145) 03/30/18 05:25 Potassium 4.7 mmol/L (3.6-5.0) D 03/30/18 05:25 Chloride 100.7 mmol/L (98-107) 03/30/18 05:25 Carbon Dioxide 24 mmol/L (22-30) 03/30/18 05:25 Anion Gap 18 mmol/L 03/30/18 05:25 BUN 20 mg/dL (9-20) 03/30/18 05:25 Creatinine 0.7 mg/dL (0.8-1.5) L 03/30/18 05:25 Estimated GFR > 60 ml/min 03/30/18 05:25 BUN/Creatinine Ratio 29 % 03/30/18 05:25 Glucose 186 mg/dL (75-100) H 03/30/18 05:25 POC Glucose 180 (70-105) H 04/01/18 11:52 Calcium 9.1 mg/dL (8.4-10.2) 03/30/18 05:25
[2018-04-02] MEDS: HumaLOG SUB-Q SCH ×3 (00:54→11:55)
[2018-04-02] MEDS: SOLU-Medrol IV SCH (07:16)
[2018-04-02] MEDS: PULMICORT IH SCH (08:13)
[2018-04-02] MEDS: BROVANA NEBU IH SCH (08:13)
[2018-04-02] MEDS: DUONEB *Not for PRN Use IH SCH ×2 (08:18→14:30)
--- NOTE | 2018-04-02 09:52 | Progress Note ---
Assessment and Plan Wrqce-be-[id number] hypoxemic respiratory failure at presentation. Acute chronic obstructive pulmonary disease exacerbation. 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 History of cerebrovascular accident. Diabetes type II Parkinson's disease. History of syncope. Leukocytosis at presentation. Hypercapnic/respiratory acidosis. Obesity - continue supplemental oxygen to keep sats 88-90% -oxygen restrictive strategies - continue bronchodilators (NANCY & JOHN) with pulmonary hygiene per RT Can start oral steroids in the morning -PT/OT/Mobility, increase activity - continue empiric antibiotics for severe AE-COPD - BIPAP prn and qhs -VTE prophylaxis - continue other chronic disease medications -influenza and pneumonia vaccination per protocol - discharge planning Discussed with RT and RN Subjective Date of service: 04/02/18 Principal diagnosis: Ac on Ch Hypoxemic Resp Failure; AE-COPD; H/O P.E.; H/O CVA; DM II Interval history: Patient is seen today for: Zllrq-ss-lzngtuq hypoxemic respiratory failure; Acute chronic obstructive pulmonary disease exacerbation; 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 Seen and examined at bedside; 24hour events reviewed; nursing and respiratory care staff consulted; no adverse overnight events reported to me; resting peacefully in bed; looks and feels better; denies chest pains or palpitations; No N/V/F/C; no cough or expectoration; on going intention and resting tremors. Objective Vital Signs - 12hr 04/01/18 04/01/18 04/01/18 22:00 23:46 23:47 Temperature 98.3 F Pulse Rate 67 67 Pulse Rate [ Anterior Bilateral Throughout] Pulse Rate [ 67 From Monitor] Respiratory 20 20 Rate Respiratory Rate [Anterior Bilateral Throughout] Blood Pressure 104/70 O2 Sat by Pulse 89 90 Oximetry 04/02/18 04/02/18 04/02/18 00:00 01:47 04:00 Temperature 98.3 F Pulse Rate 77 66 66 Pulse Rate [ Anterior Bilateral Throughout] Pulse Rate [ From Monitor] Respiratory 20 22 Rate Respiratory Rate [Anterior Bilateral Throughout] Blood Pressure 105/64 O2 Sat by Pulse 98 96 Oximetry 04/02/18 04/02/18 04/02/18 07:39 08:00 08:17 Temperature 98.5 F Pulse Rate 62 Pulse Rate [ 64 Anterior Bilateral Throughout] Pulse Rate [ From Monitor] Respiratory 20 Rate Respiratory 18 Rate [Anterior Bilateral Throughout] Blood Pressure 119/68 O2 Sat by Pulse 93 96 Oximetry 04/02/18 08:33 Temperature Pulse Rate Pulse Rate [ 74 Anterior Bilateral Throughout] Pulse Rate [ From Monitor] Respiratory Rate Respiratory 17 Rate [Anterior Bilateral Throughout] Blood Pressure O2 Sat by Pulse Oximetry Constitutional: no acute distress, other (elderly looking CM, normocephalic and atraumatic with mildly increase respiratory effort at rest) Eyes: non-icteric ENT: oropharynx moist, other (mallampati 3-4) Neck: supple, no lymphadenopathy, no JVD, other (large neck circumference) Effort: mildly labored Ascultation: Bilateral: diminished breath sounds, rhonchi Percussion: Bilateral: not dull Cardiovascular: regular rate and rhythm, other (S1,S2, no murmurs, no gallops ) Gastrointestinal: normoactive bowel sounds, soft, non-tender, non-distended Integumentary: normal Extremities: no cyanosis, no edema, pink and warm, pulses normal, no ischemia or petechiae Neurologic: normal mental status, non-focal exam, pupils equal and round, motor strength normal and Psychiatric: mood appropriate, affect normal CBC and BMP: 03/30/18 05:25 03/30/18 05:25 ABG, PT/INR, D-dimer: ABG POC ABG pH 7.311 (7.35-7.45) L 03/29/18 02:39 POC ABG pCO2 48.1 (35-45) H 03/29/18 02:39 POC ABG pO2 83 (80-105) 03/29/18 02:39 POC ABG HCO3 24.2 03/29/18 02:39 POC ABG Total CO2 26 03/29/18 02:39 POC ABG O2 Sat 95 03/29/18 02:39 PT/INR, D-dimer D-Dimer 244.93 ng/mlDDU (0-234) H 03/29/18 21:37 Abnormal lab findings: Abnormal Labs 03/28/18 03/28/18 03/29/18 23:50 23:50 02:39 WBC 11.1 H RBC 5.13 H RDW 15.9 H Lymph % (Auto) [place] % (Auto) 7.7 H Eos % (Auto) 13.3 H Lymph # Fisher # 0.9 H Eos # 1.5 H Seg Neutrophils % Seg Neuts % (Manual) Lymphocytes % (Manual) Lymphocytes # (Manual) D-Dimer POC ABG pH 7.311 L POC ABG pCO2 48.1 H Creatinine 0.6 L Glucose 167 H POC Glucose 03/29/18 03/29/18 03/29/18 03:40 03:40 05:37 WBC RBC RDW 15.9 H Lymph % (Auto) [place] % (Auto) Eos % (Auto) Lymph # Fisher # Eos # Seg Neutrophils % Seg Neuts % (Manual) 91.0 H Lymphocytes % (Manual) 5.0 L Lymphocytes # (Manual) 0.4 L D-Dimer POC ABG pH POC ABG pCO2 Creatinine 0.6 L Glucose 248 H POC Glucose 228 H 03/29/18 03/29/18 03/29/18 07:32 11:19 17:08 WBC RBC RDW Lymph % (Auto) [place] % (Auto) Eos % (Auto) Lymph # Fisher # Eos # Seg Neutrophils % Seg Neuts % (Manual) Lymphocytes % (Manual) Lymphocytes # (Manual) D-Dimer POC ABG pH POC ABG pCO2 Creatinine Glucose POC Glucose 195 H 213 H 230 H 03/29/18 03/29/18 03/30/18 21:37 23:28 05:25 WBC RBC RDW 16.1 H Lymph % (Auto) 11.4 L [place] % (Auto) Eos % (Auto) Lymph # 0.7 L Fisher # Eos # Seg Neutrophils % 85.0 H Seg Neuts % (Manual) Lymphocytes % (Manual) Lymphocytes # (Manual) D-Dimer 244.93 H POC ABG pH POC ABG pCO2 Creatinine Glucose POC Glucose 180 H 03/30/18 03/30/18 03/30/18 05:25 05:40 08:47 WBC RBC RDW Lymph % (Auto) [place] % (Auto) Eos % (Auto) Lymph # Fisher # Eos # Seg Neutrophils % Seg Neuts % (Manual) Lymphocytes % (Manual) Lymphocytes # (Manual) D-Dimer POC ABG pH POC ABG pCO2 Creatinine 0.7 L Glucose 186 H POC Glucose 174 H 175 H 03/30/18 03/30/18 03/31/18 12:12 17:35 00:05 WBC RBC RDW Lymph % (Auto) [place] % (Auto) Eos % (Auto) Lymph # [place] # Eos # Seg Neutrophils % Seg Neuts % (Manual) Lymphocytes % (Manual) Lymphocytes # (Manual) D-Dimer POC ABG pH POC ABG pCO2 Creatinine Glucose POC Glucose 200 H 147 H 168 H 03/31/18 03/31/18 03/31/18 06:06 12:05 18:47 WBC RBC RDW Lymph % (Auto) [place] % (Auto) Eos % (Auto) Lymph # [place] # Eos # Seg Neutrophils % Seg Neuts % (Manual) Lymphocytes % (Manual) Lymphocytes # (Manual) D-Dimer POC ABG pH POC ABG pCO2 Creatinine Glucose POC Glucose 207 H 244 H 138 H 04/01/18 04/01/18 04/01/18 00:48 06:43 11:52 WBC RBC RDW Lymph % (Auto) [place] % (Auto) Eos % (Auto) Lymph # [place] # Eos # Seg Neutrophils % Seg Neuts % (Manual) Lymphocytes % (Manual) Lymphocytes # (Manual) D-Dimer POC ABG pH POC ABG pCO2 Creatinine Glucose POC Glucose 180 H 137 H 180 H 04/01/18 04/01/18 04/02/18 17:04 23:49 06:06 WBC RBC RDW Lymph % (Auto) [place] % (Auto) Eos % (Auto) Lymph # [place] # Eos # Seg Neutrophils % Seg Neuts % (Manual) Lymphocytes % (Manual) Lymphocytes # (Manual) D-Dimer POC ABG pH POC ABG pCO2 Creatinine Glucose POC Glucose 197 H 171 H 128 H Allied health notes reviewed: nursing
[2018-04-02] MEDS: LOVENOX SUB-Q SCH (10:14)
[2018-04-02] MEDS: HALFPRIN EC PO SCH (10:15)
[2018-04-02] MEDS: VITAMIN B-12 PO SCH (10:15)
[2018-04-02] MEDS: SODIUM CHLORIDE FLUSH SYRINGE 10 ML IV SCH (10:15)
[2018-04-02] MEDS: PEPCID PO SCH (10:15)
[2018-04-02] MEDS: SINEMET PO SCH ×2 (10:15→13:21)
[2018-04-02] MEDS: ZESTRIL PO SCH (10:16)
[2018-04-02] MEDS: GLUCOPHAGE PO SCH (10:20)
[2018-04-02] MEDS: ZITHROMAX 500 MG in NACL 0.9% 250ML 250 ML IV SCH (10:20)
--- NOTE | 2018-04-02 12:52 | Discharge Summary ---
Providers - Providers Date of Admission: 03/29/18 02:37 Attending physician: AMANDEEP KIMBLE MD 03/29/18 02:37 Consult to Physician [CONS] Routine Comment: Consulting Provider: WAQAS REYES Physician Instructions: Reason For Exam: copd 03/31/18 11:56 Physical Therapy Evaluation and Treat [CONS] Routine Comment: Reason For Exam: ataxia 04/01/18 18:08 Speech Therapy Evaluation and Treat [CONS] Urgent Reason For Exam: difficulty swallowing Primary care physician: SEUN BURROUGHS Hospitalization Condition: Fair Hospital course: Patient was admitted this morning with worsening shortness of breath, -he was admitted for COPD exacerbation, he was treated with steroids and nebulizers and oxygen. He was initially on BiPAP but was weaned off. -The patient uses oxygen at home at bedtime, as he has history of nocturnal desaturation, he was advised to continue to use HS oxygen -he received PT and Home PT was recommended Diagnosis --Acute on chronic hypoxic Respiratory failure --Acute COPD exacerbation --hypertension --diabetes --CVA, Parkinson's --Ambulatory dysfunction Disposition: DC/TX-06 HOME UNDER [facility] Time spent for discharge: 33 mins Core Measure Documentation - Palliative Care Palliative Care/ Comfort Measures: Not Applicable - Core Measures Any of the following diagnoses?: none Exam - Constitutional Vitals: Temp Pulse Resp BP Pulse Ox 98.5 F 62 17 119/68 96 04/02/18 07:39 04/02/18 12:00 04/02/18 08:33 04/02/18 07:39 04/02/18 08:17 General appearance: Present: no acute distress, well-nourished - EENT Eyes: Present: PERRL ENT: hearing intact, clear oral mucosa - Neck Neck: Present: supple, normal ROM - Respiratory Respiratory effort: normal Respiratory: bilateral: CTA - Cardiovascular Heart Sounds: Present: S1 & S2. Absent: rub, click - Extremities Extremities: pulses symmetrical, No edema Peripheral Pulses: within normal limits - Abdominal General gastrointestinal: Present: soft, non-tender, non-distended, normal bowel sounds Male genitourinary: Present: normal - Integumentary Integumentary: Present: clear, warm, dry - Musculoskeletal Musculoskeletal: gait normal, strength equal bilaterally - Psychiatric Psychiatric: appropriate mood/affect, intact judgment & insight - Neurologic Neurologic: CNII-XII intact, moves all extremities Plan Follow up with: SEUN BURROUGHS MD [Primary Care Provider] - 7 Days Prescriptions: RX: ALBUTEROL Inhaler(NF) [VENTOLIN Inhaler(NF)] 1 puff IH Q4H #1 inha Budesoni/Formotero 160-4.5(Nf) [Symbicort 160-4.5 (Nf)] 2 puff IH BID #1 inha RX: predniSONE [Deltasone] 10 mg PO .TAPER #48 tab Prednisone [predniSONE 10 mg (6-Day Pack, 21 Tabs)] 10 mg PO .TAPER #1 tab.ds.pk Tiotropium [place] [Spiriva Respimat] 4 gm IH DAILY #1 mist.inhal RX: Ipratropium/Albuterol Sulfate [DUONEB *Not for PRN Use*] 1 ampul IH BIDRT #120 ampul.neb
[2018-04-02 14:05] VITALS: BP 144/81
== END 2018-04-02 15:30 | disposition home health service (06) | DRG 189 ==
LOC: ED 23:19 → IMCU 03-29 02:37 → 2B-ACE 03-31 19:22
PROVIDERS: ADMIT Internal Medicine; ATTEND Internal Medicine
PROC: 4A033R1 Measurement of Arterial Saturation, Peripheral, Percutaneous Approach (ICD-10-PCS; principal; 2018-03-29)
PROC: 5A09457 Assistance with Respiratory Ventilation, 24-96 Consecutive Hours, Continuous Positive Airway Pressure (ICD-10-PCS; 2018-03-29)
PROC: 5A09357 Assistance with Respiratory Ventilation, Less than 24 Consecutive Hours, Continuous Positive Airway Pressure (ICD-10-PCS; 2018-04-02)
DX: J96.21 Acute and chronic respiratory failure with hypoxia (principal); J44.1 Chronic obstructive pulmonary disease with (acute) exacerbation; E87.2 Acidosis; I10 Essential (primary) hypertension; E11.9 Type 2 diabetes mellitus without complications; G20 Parkinson's disease; D72.829 Elevated white blood cell count, unspecified; E66.9 Obesity, unspecified; Z86.73 Personal history of transient ischemic attack (TIA), and cerebral infarction without residual deficits; Z68.27 Body mass index [BMI] 27.0-27.9, adult; Z82.49 Family history of ischemic heart disease and other diseases of the circulatory system; Z79.82 Long term (current) use of aspirin; Z79.899 Other long term (current) drug therapy; Z86.711 Personal history of pulmonary embolism
CPT/HCPCS: 36415; 71045; 80048; 82803; 82962; 85007; 85025; 85379; 93970; 94640; 94644; 94660; 94760; G0378; J0456; J1650; J1815; J2920; J2930; J3475; J7050

== ENCOUNTER 2018-04-14 10:51 | Emergency (ER) | payer MEDICARE ==
[2018-04-14] MEDS ORDERED: IBUPROFEN PO ONE (11:26)
[2018-04-14] MEDS ORDERED: NORCO 5/325 PO ONE (11:26)
[2018-04-14] MEDS ORDERED: FLEXERIL PO ONE (11:26)
--- NOTE | 2018-04-14 11:30 | Emergency Department Report ---
HPI - General Chief Complaint: Fall Time Seen by Provider: 04/14/18 11:16 - HPI HPI: Room 4 The patient is a 68-year-old male presenting with a chief complaint of back pain after fall. The patient has a history of Parkinson's disease and frequent falls. The patient states he lost his balance this morning while walking and fell to the ground. There was no loss of consciousness the patient did not complain of any pain at that time. states the patient got up to the bathroom and then lost his balance again falling backwards. This time the patient low back pain especially with movement. Patient describes pain as sharp in nature and gives it a score of 8-9/10. Patient denies loss of consciousness. Patient denies any other pain Location: Low back Duration: [See above] Quality: sharp Severity: 8-9/10 Modifying factors: [see above] Context: [see above] Mode of transportation: [not driving] ED Past Medical Hx - Past Medical History Hx Hypertension: Yes Hx CVA: Yes (2016) Hx Diabetes: Yes Hx Pulmonary Embolism: Yes Hx COPD: Yes (2 L home O2) Additional medical history: History of syncope, Parkinson's - Surgical History Past Surgical History?: No - Family History Family history: no significant - Social History Smoking Status: Former Smoker (none since 2001) Substance Use Type: None (denies illicit drug use) - Medications Home Medications: Home Medications Medication Instructions Recorded Confirmed Last Taken Type Ca/D3/Mag Ox/Zinc/Charge Out Clerk/Vaibhav/Bor 1 each PO QDAY 02/01/18 03/29/18 Unknown History [Calcium 780-W2-Kxbcsijr Chw Tb] Carbidopa/Levodopa 25-100 [Sinemet 1 each PO QID 02/01/18 03/29/18 Unknown His tory 25/100] Lisinopril [Zestril TAB] 20 mg PO QDAY 02/01/18 03/29/18 Unknown History metFORMIN [Glucophage] 500 mg PO BID 02/01/18 03/29/18 Unknown History Aspirin [Adult Aspirin] 81 mg PO QDAY 02/02/18 03/29/18 Unknown History Cyanocobalamin (Vitamin B-12) 1,000 mcg PO DAILY 03/29/18 03/29/18 Unknown History [Vitamin B-12] ALBUTEROL Inhaler(NF) [VENTOLIN 1 puff IH Q4H #1 inha 04/02/18 Unknown Rx Inhaler(NF)] Budesoni/Formotero 160-4.5(Nf) 2 puff IH BID #1 inha 04/02/18 Unknown Rx [Symbicort 160-4.5 (Nf)] Ipratropium/Albuterol Sulfate 1 ampul IH BIDRT #120 ampul.neb 04/02/18 Unknown Rx [DUONEB *Not for PRN Use*] Prednisone [predniSONE 10 mg 10 mg PO .TAPER #1 tab.ds.pk 04/02/18 Unknown Rx (6-Day Pack, 21 Tabs)] Tiotropium [place] [Spiriva 4 gm IH DAILY #1 mist.inhal 04/02/18 Unknown Rx Respimat] predniSONE [Deltasone] 10 mg PO .TAPER #48 tab 04/02/18 Unknown Rx Cyclobenzaprine HCl [Flexeril 5 MG 5 mg PO TID PRN #14 tab 04/14/18 Unknown Rx TAB] HYDROcodone/APAP 5-325 [Ralph 1 - 2 each PO Q6HR PRN #14 tablet 04/14/18 Unknown Rx 5/325] Ibuprofen [Motrin 800 MG tab] 800 mg PO Q8HR PRN #20 tablet 04/14/18 Unknown Rx ED Review of Systems ROS: Stated complaint: FALL/BACK PAIN Other details as noted in HPI Constitutional: no symptoms reported Eyes: denies: eye pain ENT: denies: throat pain Respiratory: no symptoms reported Cardiovascular: denies: chest pain Endocrine: no symptoms reported Gastrointestinal: denies: abdominal pain Genitourinary: denies: dysuria Musculoskeletal: back pain, myalgia Neurological: denies: headache Physical Exam - Physical Exam Vital Signs: Vital Signs 04/14/18 11:09 Temperature 97.6 F Pulse Rate 94 H Blood Pressure 130/71 Physical Exam: GENERAL: The patient is well-developed well-nourished male lying on stretcher not appearing to be in acute distress. [] HEENT: Normocephalic. Atraumatic. Extraocular motions are intact. Patient has moist mucous membranes. NECK: Supple. Trachea midline CHEST/LUNGS: Clear to auscultation. There is no respiratory distress noted. HEART/CARDIOVASCULAR: Regular. There is no tachycardia. There is no gallop rub or murmur. ABDOMEN: Abdomen is soft, nontender. Patient has normal bowel sounds. There is no abdominal distention. SKIN: There is no rash. There is no edema. There is no diaphoresis. NEURO: The patient is awake, alert, and oriented. The patient is cooperative. The patient has normal speech MUSCULOSKELETAL: There is mild lumbar paraspinous pain. There is no axial step off. ED Course Vital Signs 04/14/18 11:09 Temperature 97.6 F Pulse Rate 94 H Blood Pressure 130/71 ED Medical Decision Making - Radiology Data Radiology results: report reviewed (CT lumbar spine), image reviewed (CT lumbar spine) Findings [facility] [address] [place] [address] Cat Scan Report Signed Patient: MARLENI ALVAREZ MR#: [id number] : 1950 Acct:[id number] Age/Sex: 68 / M ADM Date: 04/14/18 Loc: ED Attending Dr: Ordering Physician: JOANN ESPINOZA MD Date of Service: 04/14/18 Procedure(s): CT lumbar spine wo con Accession Number(s): [id number] cc: JOANN ESPINOZA MD PROCEDURE: CT LUMBAR SPINE WO CON TECHNIQUE: Axial images obtained lumbar spine without intravenous contrast. Sagittal reformatted images obtained. HISTORY: pain after fall COMPARISONS: None FINDINGS: There is generalized osteopenia. Lumbar vertebrae demonstrate normal height. No acute compression deformity. Facets normal alignment. Posterior elements intact. T12-L1: Mild degenerative disc narrowing. Mild facet arthropathy. No central stenosis. L1-2: Mild narrowing of the disks. Mild bulging of the disc. Mild facet arthropathy. No central stenosis L2-3:: Bulky osteophyte formation. Disc osteophyte complex. Moderate facet arthropathy. Borderline central stenosis. Left foraminal stenosis L3-4: Disc osteophyte complex. Bulky osteophyte formation. Moderate facet arthropathy. Mild central stenosis. Severe left foraminal stenosis L4-5: Disc osteophyte complex. Facet and ligamentous hypertrophy. Severe central and foraminal stenosis. L5- S1: Narrowing of the disks. Disc osteophyte complex. Severe bilateral foraminal stenosis. Bilateral lateral recess stenosis Sacrum demonstrates no acute fracture. 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 Atherosclerotic calcification of the aorta. No aneurysm. No retroperitoneal adenopathy. Kidneys demonstrate no hydronephrosis. IMPRESSION: No acute fracture or malalignment Advanced degenerative changes. Central and foraminal stenosis present. Please see above discussion of individual levels.. This document is electronically signed by Yusuf Morris MD., April 14 2018 01:26:20 PM ET Transcribed By: DONTE Dictated By: YUSUF MORRIS MD Electronically Authenticated By: YUSUF MORRIS MD Signed Date/Time: 04/14/18 1328 DD/ 1124 TD/TT: 04/14/18 1317 - Differential Diagnosis lumbar strain, lumbar fracture Critical care attestation.: If time is entered above; I have spent that time in minutes in the direct care of this critically ill patient, excluding procedure time. ED Disposition Clinical Impression: Lumbar contusion Disposition: - TO HOME OR SELFCARE Is pt being admited?: No Does the pt Need Aspirin: No Condition: Stable Instructions: Low Back Strain (ED), Back Pain (ED) Additional Instructions: Return to the emergency department immediately should you develop worsening symptoms, fever, inability to tolerate food or liquid or any other concerns. Prescriptions: Cyclobenzaprine HCl [Flexeril 5 MG TAB] 5 mg PO TID PRN #14 tab PRN Reason: Muscle Spasm Ibuprofen [Motrin 800 MG tab] 800 mg PO Q8HR PRN #20 tablet PRN Reason: Pain, Moderate (4-6) HYDROcodone/APAP 5-325 [Ralph 5/325] 1 - 2 each PO Q6HR PRN #14 tablet PRN Reason: Pain Referrals: JULIENNE PAEZ MD, PHD [Primary Care Provider] - 3-5 Days STEPHANIE MORFIN MD [Staff Physician] - 3-5 Days (Dr Morfin is an orthopedic surgeon. Please follow up for further evaluation) Time of Disposition: 13:37
--- NOTE | 2018-04-14 13:28 | Cat Scan Report ---
PROCEDURE: CT LUMBAR SPINE WO CON TECHNIQUE: Axial images obtained lumbar spine without intravenous contrast. Sagittal reformatted stacy ges obtained. HISTORY: pain after fall COMPARISONS: None FINDINGS: There is generalized osteopenia. Lumbar vertebrae demonstrate normal height. No acute compression def ormity. Facets normal alignment. Posterior elements intact. T12-L1: Mild degenerative disc narrowing. Mild facet arthropathy. No central stenosis. L1-2: Mild narrowing of the disks. Mild bulging of the disc. Mild facet arthropathy. No central steno sis L2-3:: Bulky osteophyte formation. Disc osteophyte complex. Moderate facet arthropathy. Borderline ce ntral stenosis. Left foraminal stenosis L3-4: Disc osteophyte complex. Bulky osteophyte formation. Moderate facet arthropathy. Mild central s tenosis. Severe left foraminal stenosis L4-5: Disc osteophyte complex. Facet and ligamentous hypertrophy. Severe central and foraminal stenos is. L5-S1: Narrowing of the disks. Disc osteophyte complex. Severe bilateral foraminal stenosis. Bilatera l lateral recess stenosis Sacrum demonstrates no acute fracture. 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 Atherosclerotic calcification of the aorta. No aneurysm. No retroperitoneal adenopathy. Kidneys demon strate no hydronephrosis. IMPRESSION: No acute fracture or malalignment Advanced degenerative changes. Central and foraminal stenosis present. Please see above discussion of individual levels.. This document is electronically signed by Yusuf Lang MD., April 14 2018 01:26:20 PM ET
[2018-04-14 14:08] VITALS: BP 111/82
== END 2018-04-14 14:07 | disposition home or self-care (01) ==
LOC: ED 10:51
DX: S30.0XXA Contusion of lower back and pelvis, initial encounter (principal); I10 Essential (primary) hypertension; E11.9 Type 2 diabetes mellitus without complications; Z86.73 Personal history of transient ischemic attack (TIA), and cerebral infarction without residual deficits; Z86.711 Personal history of pulmonary embolism; Z87.891 Personal history of nicotine dependence; Z86.69 Personal history of other diseases of the nervous system and sense organs; Z79.84 Long term (current) use of oral hypoglycemic drugs; W18.30XA Fall on same level, unspecified, initial encounter; Y93.89 Activity, other specified; Y92.89 Other specified places as the place of occurrence of the external cause; Y99.8 Other external cause status
CPT/HCPCS: 72131

== ENCOUNTER 2018-09-11 12:32 | Outpatient (CLI) | payer MEDICARE | END 2018-09-11 12:33 | disposition home or self-care (01) | LOC: LAB 12:32 | PROVIDERS: ATTEND Internal Medicine | DX: J44.9 Chronic obstructive pulmonary disease, unspecified (principal); I10 Essential (primary) hypertension | CPT/HCPCS: 36600; 82803 ==

== ENCOUNTER 2019-03-24 16:36 | Emergency (ER) | payer MEDICARE ==
[2019-03-24] MEDS ORDERED: IPRATROPIUM 0.02% NEBU 2.5 ML IH ONE (17:04)
[2019-03-24] MEDS ORDERED: ALBUTEROL 2.5 MG/3 ML NEBU IH ONE (17:04)
[2019-03-24] MEDS ORDERED: methylPREDNISolone Sod Succinate 125 MG/2 ML INJ IV ONE (17:04)
[2019-03-24 17:36] LABS: Basophils # (Auto) 0.1 K/mm3 (0.0-0.1); Basophils % (Auto) 0.8 % (0.0-1.8); Eosinophils # (Auto) 0.3 K/mm3 (0.0-0.4); Eosinophils % (Auto) 3.7 % (0.0-4.3); Hematocrit 41.5 % (35.5-45.6); Hemoglobin 13.9 gm/dl (11.8-15.2); Lymphocytes # (Auto) 1.6 K/mm3 (1.2-5.4); Lymphocytes % (Auto) 18.9 % (13.4-35.0); Mean Corpuscular HGB Conc 34 % (32-34); Mean Corpuscular Volume 89 fl (84-94); Monocytes # (Auto) 0.7 K/mm3 (0.0-0.8); Monocytes % (Auto) 8.2 % (0.0-7.3); Platelet Count 235 K/mm3 (140-440); Red Blood Count 4.68 M/mm3 (3.65-5.03); Red Cell Distribution Width 15.5 % (13.2-15.2)
--- NOTE | 2019-03-24 17:53 | XRay Report ---
{null, LEFT RIBS 5 VIEWS INDICATION / CLINICAL INFORMATION: pain after fall. COMPARISON: None available. FINDINGS: RIBS: There are mildly displaced fractures of the left lateral fifth and sixth ribs as well as the le ft lateral eighth rib. There is a nondisplaced fracture of the left posterior 10th rib. There are mul tiple subacute appearing right rib fractures as well. LUNGS: No acute findings. No pneumothorax. Signer Name: Conor Fields MD Signed: 03/24/2019 5:49 PM Workstation Name: [id number] }
--- NOTE | 2019-03-24 17:54 | XRay Report ---
{null, XR hip 2-3V RT INDICATION / CLINICAL INFORMATION: Right hip pain after fall. COMPARISON: None available. FINDINGS: BONES/JOINT(S): No acute fracture or subluxation. Mild bilateral hip DJD. SOFT TISSUES: No significant abnormality. ADDITIONAL FINDINGS: None. Signer Name: Conor Fields MD Signed: 03/24/2019 5:49 PM Workstation Name: [email or web address] }
[2019-03-24 17:56] LABS: BUN/Creatinine Ratio 15; Blood Urea Nitrogen 9 mg/dL (9-20); Calcium 9.4 mg/dL (8.4-10.2); Hemolysis Index 246
--- NOTE | 2019-03-24 20:49 | Cat Scan Report ---
{null, CTA CHEST WITH CONTRAST INDICATION / CLINICAL INFORMATION: elevated d-dimer, hypoxia. TECHNIQUE: Axial CT images were obtained through the chest after injection of 100 MLO Omnipaque 350 IV contrast. 3 plane MIP and/or 3D reconstructions were produced. All CT scans at this location are performed usi ng CT dose reduction for ALARA by means of automated exposure control. COMPARISON: CT dated 02/03/18 FINDINGS: PULMONARY ARTERIES: No pulmonary emboli. THORACIC AORTA: No significant abnormality. HEART: No significant abnormality. CORONARY ARTERIES: Moderate LAD calcification. MEDIASTINUM / JOAO: No significant abnormality. PLEURA: No pleural effusion. No pneumothorax. LUNGS: No acute airspace disease. Mild bilateral bronchial wall thickening. ADDITIONAL FINDINGS: None. UPPER ABDOMEN: No acute findings. SKELETAL STRUCTURES: Multiple bilateral healed rib fractures with several new right-sided healing rib fractures. IMPRESSION: 1. No CT evidence for pulmonary embolism. 2. Mild bilateral bronchial wall thickening but no pneumonia. 3. Several new right-sided healing rib fractures with multiple bilateral healed rib fractures. Signer Name: Ji Nieves MD Signed: 03/24/2019 8:44 PM Workstation Name: [id number] }
[2019-03-24 22:06] LABS: ABG Base Excess -0.7 mmol/L (-2.0-3.0); ABG HCO3 22.9 mmol/L (20.0-26.0); ABG Methemoglobin 0.6 % (0.0-1.5); ABG Oxygen Saturation 94.9 % (95.0-99.0); ABG PCO2 34.7 mm Hg; ABG PH 7.438 pH Units (7.350-7.450); ABG PO2 68.6 mm Hg (80.0-90.0)
--- NOTE | 2019-03-24 22:18 | Emergency Department Report ---
{null, ED General Adult HPI - General Chief complaint: Dyspnea/Respdistress Stated complaint: DIFFICULTY BREATHING Time Seen by Provider: 03/24/19 16:58 Source: family, EMS Mode of arrival: Wheelchair Limitations: No Limitations - History of Present Illness Initial comments: Patient is a 69-year-old male with COPD who is no longer on oxygen at home as well as Parkinson's disease who was brought in because of respiratory distress. Patient was noted to be having tripod positioning and respiratory distress. Patient used a nebulizer treatment before coming. Patient denies any fevers chills. Patient is complaining of some left rib pain and right hip pain from a fall from yesterday. Patient does have a history of unsteady gait and frequent falls. Paramedics state that the patient's O2 sat was in the mid 80s he was placed on a nonrebreather. - Related Data Home Medications Medication Instructions Recorded Confirmed Last Taken Ca/D3/Mag Ox/Zinc/Discharge Coordinator/Vaibhav/Bor 1 each PO QDAY 02/01/18 03/29/18 Unknown [Calcium 237-G6-Zkermvdn Chw Tb] Carbidopa/Levodopa 25-100 [Sinemet 1 each PO QID 02/01/18 03/29/18 Unknown 25/100] lisinopriL [Zestril TAB] 20 mg PO QDAY 02/01/18 03/29/18 Unknown metFORMIN [Glucophage] 500 mg PO BID 02/01/18 03/29/18 Unknown Aspirin [Adult Aspirin] 81 mg PO QDAY 02/02/18 03/29/18 Unknown Cyanocobalamin (Vitamin B-12) 1,000 mcg PO DAILY 03/29/18 03/29/18 Unknown [Vitamin B-12] Previous Rx's Medication Instructions Recorded Last Taken Type ALBUTEROL Inhaler(NF) [VENTOLIN 1 puff IH Q4H #1 inha 04/02/18 Unknown Rx Inhaler(NF)] Budesoni/Formotero 160-4.5(Nf) 2 puff IH BID #1 inha 04/02/18 Unknown Rx [Symbicort 160-4.5 (Nf)] Ipratropium/Albuterol Sulfate 1 ampul IH BIDRT #120 ampul.neb 04/02/18 Unknown R x [DUONEB *Not for PRN Use*] Prednisone [predniSONE 10 mg 10 mg PO .TAPER #1 tab.ds.pk 04/02/18 Unknown Rx (6-Day Pack, 21 Tabs)] Tiotropium [place] [Spiriva 4 gm IH DAILY #1 mist.inhal 04/02/18 Unknown Rx Respimat] predniSONE [Deltasone] 10 mg PO .TAPER #48 tab 04/02/18 Unknown Rx Cyclobenzaprine HCl [Flexeril 5 MG 5 mg PO TID PRN #14 tab 04/14/18 Unknown Rx TAB] HYDROcodone/APAP 5-325 [[place] 1 - 2 each PO Q6HR PRN #14 tablet 04/14/18 Unknown Rx 5/325] Ibuprofen [Motrin 800 MG tab] 800 mg PO Q8HR PRN #20 tablet 04/14/18 Unknown Rx Azithromycin [Zithromax Z-MEREDITH] 250 mg PO DAILY #6 tablet 03/24/19 Unknown Rx Benzonatate [Tessalon Perles] 100 mg PO Q8HR #10 capsule 03/24/19 Unknown Rx Clindamycin [Clindamycin CAP] 300 mg PO Q8H #21 cap 03/24/19 Unknown Rx predniSONE [Deltasone] 20 mg PO QDAY #5 tab 03/24/19 Unknown Rx traMADoL [Ultram] 50 mg PO Q6HR PRN #12 tablet 03/24/19 Unknown Rx Allergies Allergy/AdvReac Type Severity Reaction Status Date / Time No Known Allergies Allergy Verified 09/11/13 07:53 ED Review of Systems ROS: Stated complaint: DIFFICULTY BREATHING Other details as noted in HPI Comment: All other systems reviewed and negative ED Past Medical Hx - Past Medical History Previous Medical History?: Yes Hx Hypertension: Yes Hx CVA: Yes (2016) Hx Diabetes: Yes Hx Pulmonary Embolism: Yes Hx COPD: Yes Hx Dementia: Yes Additional medical history: History of syncope, Parkinson's - Surgical History Past Surgical History?: No - Social History Smoking Status: Former Smoker Substance Use Type: None - Medications Home Medications: Home Medications Medication Instructions Recorded Confirmed Last Taken Type Ca/D3/Mag Ox/Zinc/Discharge Coordinator/Vaibhav/Bor 1 each PO QDAY 02/01/18 03/29/18 Unknown History [Calcium 660-E5-Axnizdth Chw Tb] Carbidopa/Levodopa 25-100 [Sinemet 1 each PO QID 02/01/18 03/29/18 Unknown History 25] lisinopriL [Zestril TAB] 20 mg PO QDAY 02/01/18 03/29/18 Unknown History metFORMIN [Glucophage] 500 mg PO BID 02/01/18 03/29/18 Unknown History Aspirin [Adult Aspirin] 81 mg PO QDAY 02/02/18 03/29/18 Unknown History Cyanocobalamin (Vitamin B-12) 1,000 mcg PO DAILY 03/29/18 03/29/18 Unknown Hist ory [Vitamin B-12] ALBUTEROL Inhaler(NF) [VENTOLIN 1 puff IH Q4H #1 inha 04/02/18 Unknown Rx Inhaler(NF)] Budesoni/Formotero 160-4.5(Nf) 2 puff IH BID #1 inha 04/02/18 Unknown Rx [Symbicort 160-4.5 (Nf)] Ipratropium/Albuterol Sulfate 1 ampul IH BIDRT #120 ampul.neb 04/02/18 Unknown Rx [DUONEB *Not for PRN Use*] Prednisone [predniSONE 10 mg 10 mg PO .TAPER #1 tab.ds.pk 04/02/18 Unknown Rx (6-Day Pack, 21 Tabs)] Tiotropium [place] [Spiriva 4 gm IH DAILY #1 mist.inhal 04/02/18 Unknown Rx Respimat] predniSONE [Deltasone] 10 mg PO .TAPER #48 tab 04/02/18 Unknown Rx Cyclobenzaprine HCl [Flexeril 5 MG 5 mg PO TID PRN #14 tab 04/14/18 Unknown Rx TAB] HYDROcodone/APAP 5-325 [[place] 1 - 2 each PO Q6HR PRN #14 tablet 04/14/18 Unknown Rx 5/325] Ibuprofen [Motrin 800 MG tab] 800 mg PO Q8HR PRN #20 tablet 04/14/18 Unknown Rx Azithromycin [Zithromax Z-MEREDITH] 250 mg PO DAILY #6 tablet 03/24/19 Unknown Rx Benzonatate [Tessalon Perles] 100 mg PO Q8HR #10 capsule 03/24/19 Unknown Rx Clindamycin [Clindamycin CAP] 300 mg PO Q8H #21 cap 03/24/19 Unknown Rx predniSONE [Deltasone] 20 mg PO QDAY #5 tab 03/24/19 Unknown Rx traMADoL [Ultram] 50 mg PO Q6HR PRN #12 tablet 03/24/19 Unknown Rx ED Physical Exam - General Limitations: No Limitations General appearance: alert, in no apparent distress - Head Head exam: Present: atraumatic, normocephalic - Eye Eye exam: Present: normal appearance, PERRL, EOMI - ENT ENT exam: Present: mucous membranes moist - Neck Neck exam: Present: normal inspection - Respiratory Respiratory exam: Present: respiratory distress, wheezes, rhonchi, chest wall tenderness (left chest tenderness). Absent: normal lung sounds bilaterally, rales - Cardiovascular Cardiovascular Exam: Present: regular rate, normal rhythm. Absent: systolic murmur, diastolic murmur, rubs, gallop - GI/Abdominal GI/Abdominal exam: Present: soft, normal bowel sounds. Absent: distended, tenderness, guarding, rebound - Rectal Rectal exam: Present: deferred - Extremities Exam Extremities exam: Present: normal inspection - Back Exam Back exam: Present: normal inspection - Neurological Exam Neurological exam: Present: alert, oriented X3 - Psychiatric Psychiatric exam: Present: normal affect, normal mood - Skin Skin exam: Present: warm, dry, intact, normal color. Absent: rash ED Course Vital Signs 03/24/19 03/24/19 03/24/19 16:58 17:00 17:22 Temperature 98.2 F Pulse Rate 106 H 105 H 105 H Pulse Rate [ Bilateral] Respiratory 25 H 33 H 26 H Rate Respiratory Rate [Bilateral ] Blood Pressure 125/83 125/83 O2 Sat by Pulse 98 100 96 Oximetry 03/24/19 03/24/19 03/24/19 17:32 17:42 18:00 Temperature Pulse Rate 90 Pulse Rate [ Bilateral] Respiratory 27 H Rate Respiratory Rate [Bilateral ] Blood Pressure 125/83 114/63 O2 Sat by Pulse 96 95 94 Oximetry 03/24/19 03/24/19 03/24/19 18:18 18:30 19:00 Temperature Pulse Rate 90 99 H Pulse Rate [ 103 H Bilateral] Respiratory 24 36 H Rate Respiratory 19 Rate [Bilateral ] Blood Pressure 114/67 133/75 O2 Sat by Pulse 97 94 Oximetry 03/24/19 19:30 Temperature Pulse Rate 102 H Pulse Rate [ Bilateral] Respiratory 30 H Rate Respiratory Rate [Bilateral ] Blood Pressure 137/76 O2 Sat by Pulse 97 Oximetry ED Medical Decision Making - Lab Data Result diagrams: 03/24/19 17:15 03/24/19 17:04 Lab Results 03/24/19 03/24/19 03/24/19 Range/Units 17:04 17:15 17:15 WBC 8.3 (4.5-11.0) K/mm3 RBC 4.68 (3.65-5.03) M/mm3 Hgb 13.9 (11.8-15.2) gm/dl Hct 41.5 (35.5-45.6) % MCV 89 (84-94) fl MCH 30 (28-32) pg MCHC 34 (32-34) % RDW 15.5 H (13.2-15.2) % Plt Count 235 (140-440) K/mm3 Lymph % (Auto) 18.9 (13.4-35.0) % [place] % (Auto) 8.2 H (0.0-7.3) % Eos % (Auto) 3.7 (0.0-4.3) % Baso % (Auto) 0.8 (0.0-1.8) % Lymph # 1.6 (1.2-5.4) K/mm3 [place] # 0.7 (0.0-0.8) K/mm3 Eos # 0.3 (0.0-0.4) K/mm3 Baso # 0.1 (0.0-0.1) K/mm3 Seg Neutrophils % 68.4 (40.0-70.0) % Seg Neutrophils # 5.7 (1.8-7.7) K/mm3 D-Dimer 1299.11 H (0-234) ng/mlDDU ABG pH (7.350-7.450) pH Units ABG pCO2 mm Hg ABG pO2 (80.0-90.0) mm Hg ABG HCO3 (20.0-26.0) mmol/L ABG O2 Saturation (95.0-99.0) % ABG O2 Content (0.0-44) ABG Base Excess (-2.0-3.0) mmol/L ABG Hemoglobin (14.0-18.0) gm/dl ABG Carboxyhemoglobin (0.0-5.0) % ABG Methemoglobin (0.0-1.5) % Oxyhemoglobin (95.0-99.0) % FiO2 % Sodium 142 (137-145) mmol/L Potassium 4.5 (3.6-5.0) mmol/L Chloride 102.2 (98-107) mmol/L Carbon Dioxide 24 (22-30) mmol/L Anion Gap 20 mmol/L BUN 9 (9-20) mg/dL Creatinine 0.6 L (0.8-1.5) mg/dL Estimated GFR > 60 ml/min BUN/Creatinine Ratio 15 % Glucose 161 H (75-100) mg/dL Calcium 9.4 (8.4-10.2) mg/dL 03/24/19 Range/Units 21:59 WBC (4.5-11.0) K/mm3 RBC (3.65-5.03) M/mm3 Hgb (11.8-15.2) gm/dl Hct (35.5-45.6) % MCV (84-94) fl MCH (28-32) pg MCHC (32-34) % RDW (13.2-15.2) % Plt Count (140-440) K/mm3 Lymph % (Auto) (13.4-35.0) % [place] % (Auto) (0.0-7.3) % Eos % (Auto) (0.0-4.3) % Baso % (Auto) (0.0-1.8) % Lymph # (1.2-5.4) K/mm3 [place] # (0.0-0.8) K/mm3 Eos # (0.0-0.4) K/mm3 Baso # (0.0-0.1) K/mm3 Seg Neutrophils % (40.0-70.0) % Seg Neutrophils # (1.8-7.7) K/mm3 D-Dimer (0-234) ng/mlDDU ABG pH 7.438 (7.350-7.450) pH Units ABG pCO2 34.7 mm Hg ABG pO2 68.6 L (80.0-90.0) mm Hg ABG HCO3 22.9 (20.0-26.0) mmol/L ABG O2 Saturation 94.9 L (95.0-99.0) % ABG O2 Content 18.2 (0.0-44) ABG Base Excess -0.7 (-2.0-3.0) mmol/L ABG Hemoglobin 13.9 L (14.0-18.0) gm/dl ABG Carboxyhemoglobin 1.2 (0.0-5.0) % ABG Methemoglobin 0.6 (0.0-1.5) % Oxyhemoglobin 93.2 L (95.0-99.0) % FiO2 21 % Sodium (137-145) mmol/L Potassium (3.6-5.0) mmol/L Chloride (98-107) mmol/L Carbon Dioxide (22-30) mmol/L Anion Gap mmol/L BUN (9-20) mg/dL Creatinine (0.8-1.5) mg/dL Estimated GFR ml/min BUN/Creatinine Ratio % Glucose (75-100) mg/dL Calcium (8.4-10.2) mg/dL - EKG Data -: EKG Interpreted by Co EKG shows normal: sinus rhythm, axis, intervals, QRS complexes, ST-T waves Rate: normal - EKG Data Interpretation: normal EKG - Radiology Data LEFT RIBS 5 VIEWS INDICATION / CLINICAL INFORMATION: pain after fall. COMPARISON: None available. FINDINGS: RIBS: There are mildly displaced fractures of the left lateral fifth and sixth ribs as well as the left lateral eighth rib. There is a nondisplaced fracture of the left posterior 10th rib. There are multiple subacute appearing right rib fractures as well. LUNGS: No acute findings. No pneumothorax. Signer Name: Conor Fields MD Signed: 03/24/2019 5:49 PM Workstation Name: [email or web address] XR hip 2-3V RT INDICATION / CLINICAL INFORMATION: Right hip pain after fall. COMPARISON: None available. FINDINGS: BONES/JOINT(S): No acute fracture or subluxation. Mild bilateral hip DJD. SOFT TISSUES: No significant abnormality. ADDITIONAL FINDINGS: None. Signer Name: Conor Fields MD Signed: 03/24/2019 5:49 PM Workstation Name: [email or web address] Patient: MARLENI ALVAREZ MR#: [id number] : 1950 Acct:[id number] Age/Sex: 69 / M ADM Date: 03/24/19 Loc: ED Attending Dr: Ordering Physician: LIANG WILLS MD Date of Service: 03/24/19 Procedure(s): CT angio chest Accession Number(s): [id number] cc: LIANG WILLS MD CTA CHEST WITH CONTRAST INDICATION / CLINICAL INFORMATION: elevated d-dimer, hypoxia. TECHNIQUE: Axial CT images were obtained through the chest after injection of 100 MLO Omn ipaque 350 IV contrast. 3 plane MIP and/or 3D reconstructions were produced. All CT scans at this location are performed using CT dose reduction for ALARA by means of automated exposure control. COMPARISON: CT dated 02/03/18 FINDINGS: PULMONARY ARTERIES: No pulmonary emboli. THORACIC AORTA: No significant abnormality. HEART: No significant abnormality. CORONARY ARTERIES: Moderate LAD calcification. MEDIASTINUM / JOAO: No significant abnormality. PLEURA: No pleural effusion. No pneumothorax. LUNGS: No acute airspace disease. Mild bilateral bronchial wall thickening. ADDITIONAL FINDINGS: None. UPPER ABDOMEN: No acute findings. SKELETAL STRUCTURES: Multiple bilateral healed rib fractures with several new right-sided healing rib fractures. IMPRESSION: 1. No CT evidence for pulmonary embolism. 2. Mild bilateral bronchial wall thickening but no pneumonia. 3. Several new right-sided healing rib fractures with multiple bilateral healed rib fractures. Signer Name: Ji Nieves MD Signed: 03/24/2019 8:44 PM Workstation Name: [id number] - Medical Decision Making Patient is a 69-year-old gentleman who is presenting status post episode of hypoxia and wheezing.. Patient was having a COPD exacerbation. Patient was given hour-long neb treatment with Solu-Medrol and mag and his wheezing has improved. On room air the patient is now 94% with his O2 sat. His is arrived and states that before this episode began the patient was eating and choked. Patient may have had a small amount of aspiration. If they worsen some sort of food matter they got into his lungs patient likely is coughed it up at this point. Patient will be discharged home. Critical Care Time: Yes Critical care attestation.: If time is entered above; I have spent that time in minutes in the direct care of this critically ill patient, excluding procedure time. ED Disposition Clinical Impression: COPD exacerbation, Aspiration pneumonitis Rib fractures Qualifiers: Encounter type: initial encounter Rib fracture type: multiple ribs Fracture type: closed Laterality: left Qualified Code(s): S22.42XA - Multiple fractures of ribs, left side, initial encounter for closed fracture Disposition: DC-01 TO HOME OR SELFCARE Is pt being admited?: No Does the pt Need Aspirin: No Condition: Stable Instructions: Chronic Obstructive Pulmonary Disease (ED), Rib Fracture (ED) Referrals: PRIMARY CARE, [Primary Care Provider] - 3-5 Days Time of Disposition: 22:24 }
[2019-03-24 23:07] VITALS: BP 123/67
== END 2019-03-24 23:00 | disposition home or self-care (01) ==
LOC: ED 16:36
DX: S22.42XA Multiple fractures of ribs, left side, initial encounter for closed fracture (principal); J44.1 Chronic obstructive pulmonary disease with (acute) exacerbation; J69.0 Pneumonitis due to inhalation of food and vomit; I10 Essential (primary) hypertension; E11.9 Type 2 diabetes mellitus without complications; Z86.73 Personal history of transient ischemic attack (TIA), and cerebral infarction without residual deficits; Z86.711 Personal history of pulmonary embolism; Z87.891 Personal history of nicotine dependence; Z79.899 Other long term (current) drug therapy; W18.39XA Other fall on same level, initial encounter; Y93.89 Activity, other specified; Y92.89 Other specified places as the place of occurrence of the external cause; Y99.8 Other external cause status
CPT/HCPCS: 36415; 71101; 71275; 73502; 80048; 82803; 85025; 85379; 93005; 93010; 94640; 96374; 99285; J2930; Q9967; 94644